=== PATIENT | female | born 1985 | race Caucasian/White ===

== ENCOUNTER 2016-09-14 10:35 | Outpatient (RCR) | payer MEDICAID | END 2016-09-22 | disposition home or self-care (01) | LOC: M OUTALCOH 10:35 | PROVIDERS: ATTEND Psychiatry & Neurology Psychiatry | DX: F12.20 Cannabis dependence, uncomplicated (principal) ==

== ENCOUNTER 2016-10-12 11:17 | Outpatient (RCR) | payer MEDICAID | END 2016-10-20 | LOC: M OUTALCOH 11:17 | PROVIDERS: ATTEND Psychiatry & Neurology Psychiatry | DX: F12.20 Cannabis dependence, uncomplicated (principal) ==

== ENCOUNTER → 2016-12-03 | Outpatient (REF) | payer OTHER ==
[2016-12-03 13:28] LABS: BASO # 0.1 K/mm3 (0.0-0.2); BASO % 0.6 % (0.0-1.0); EOS # 0.1 K/mm3 (0.0-0.50); EOS % 0.8 % (0.0-3.0); LARGE UNSTAINED CELL # 0.1 K/mm3 (0.0-0.4); LARGE UNSTAINED CELL % 1.2 % (0.0-4.0); LYMPH % 26.6 % (24.0-44.0); MEAN CORPUSCULAR HGB CONC 32.2 g/dl (32.0-36.5); MEAN CORPUSCULAR VOLUME 86.9 fl (80.0-96.0); MONO # 0.5 K/mm3 (0.0-0.8); MONO % 4.8 % (0.0-5.0); PLATELET COUNT, AUTOMATED 335 k/mm3 (150-450); RED CELL DISTRIBUTION WIDTH 12.7 % (11.5-14.5); WHITE BLOOD COUNT 10.7 K/mm3 (4.0-10.0)
[2016-12-03 13:51] LABS: ALBUMIN 4.1 GM/DL (3.2-5.2); ALBUMIN/GLOBULIN RATIO 1.11 (1.00-1.93); ALKALINE PHOSPHATASE 102 U/L (45-117); ALT/SGPT 40 U/L (12-78); ANION GAP 9 MEQ/L (8-16); AST/SGOT 23 U/L (15-37); BILIRUBIN,TOTAL 0.2 MG/DL (0.2-1.0); BLOOD UREA NITROGEN 7 MG/DL (7-18); CALCIUM LEVEL 9.2 MG/DL (8.5-10.1); CARBON DIOXIDE LEVEL 28 MEQ/L (21-32); CHLORIDE LEVEL 103 MEQ/L (98-107); CHOLESTEROL LEVEL 206 MG/DL (<200); CREATININE FOR GFR 0.71 MG/DL (0.55-1.02); GLOMERULAR FILTRATION RATE > 60.0 (>60); GLUCOSE, FASTING 72 MG/DL (70-105); SODIUM LEVEL 140 MEQ/L (136-145); TOTAL PROTEIN 7.8 GM/DL (6.4-8.2); TRIGLYCERIDES LEVEL 243 MG/DL (<150)
== END ==
LOC: M SFHCPLAZ 11:37
PROVIDERS: ATTEND Nurse Practitioner Family
DX: Z00.00 Encounter for general adult medical examination without abnormal findings (principal); Z13.220 Encounter for screening for lipoid disorders

== ENCOUNTER → 2017-01-20 | Outpatient (REF) | payer OTHER | LOC: M SFHCWAGY 10:57 | PROVIDERS: ATTEND Nurse Practitioner Family | DX: Z01.419 Encounter for gynecological examination (general) (routine) without abnormal findings (principal) ==

== ENCOUNTER → 2017-12-21 | Outpatient (REF) | LOC: M SMT 12:20 | DX: Z02.9 Encounter for administrative examinations, unspecified (principal) ==

== ENCOUNTER → 2017-12-27 | Outpatient (REF) | payer OTHER ==
[2017-12-27 16:34] LABS: ALBUMIN 4.3 GM/DL (3.2-5.2); ALBUMIN/GLOBULIN RATIO 1.13 (1.00-1.93); ALKALINE PHOSPHATASE 82 U/L (45-117); ALT/SGPT 26 U/L (12-78); ANION GAP 7 MEQ/L (8-16); AST/SGOT 21 U/L (7-37); BILIRUBIN,TOTAL 0.4 MG/DL (0.2-1.0); BLOOD UREA NITROGEN 6 MG/DL (7-18); CALCIUM LEVEL 9.5 MG/DL (8.5-10.1); CARBON DIOXIDE LEVEL 26 MEQ/L (21-32); CHLORIDE LEVEL 109 MEQ/L (98-107); CHOLESTEROL LEVEL 198 MG/DL (<200); CHOLESTEROL RISK RATIO 3.735 (<5); CREATININE FOR GFR 0.82 MG/DL (0.55-1.30); GLOMERULAR FILTRATION RATE > 60.0 (>60); GLUCOSE, FASTING 72 MG/DL (70-100); HDL CHOLESTEROL 53 MG/DL (>40); LDL CHOLESTEROL 132.4 MG/DL (<100); NON-HDL-C 145 MG/DL; POTASSIUM SERUM 3.5 MEQ/L (3.5-5.1); SODIUM LEVEL 142 MEQ/L (136-145); TOTAL PROTEIN 8.1 GM/DL (6.4-8.2); TRIGLYCERIDES LEVEL 63 MG/DL (<150)
== END ==
LOC: M SFHCPLAZ 13:31
DX: Z00.00 Encounter for general adult medical examination without abnormal findings (principal); Z13.220 Encounter for screening for lipoid disorders

== ENCOUNTER → 2018-04-08 | Outpatient (CLI) | payer MEDICAID | LOC: M OUTALCOH 07:42 | DX: Z03.89 Encounter for observation for other suspected diseases and conditions ruled out (principal) ==

== ENCOUNTER 2018-05-05 15:37 | Outpatient (RCR) | payer MEDICAID | END 2018-05-22 | LOC: M OUTALCOH 05-16 16:00 | DX: F12.20 Cannabis dependence, uncomplicated (principal) ==

== ENCOUNTER 2018-05-30 14:39 | Outpatient (RCR) | payer MEDICAID | END 2018-06-22 | LOC: M OUTALCOH 06-06 15:30 | DX: F12.20 Cannabis dependence, uncomplicated (principal); F17.200 Nicotine dependence, unspecified, uncomplicated ==

== ENCOUNTER 2018-07-05 08:09 | Outpatient (RCR) | payer MEDICAID | END 2018-07-22 | LOC: M OUTALCOH 08:09 | DX: F12.20 Cannabis dependence, uncomplicated (principal); F17.200 Nicotine dependence, unspecified, uncomplicated ==

== ENCOUNTER 2018-08-17 13:29 | Outpatient (RCR) | payer MEDICAID | END 2018-08-22 | LOC: M OUTALCOH 13:29 | PROVIDERS: ATTEND Psychiatry & Neurology Psychiatry | DX: F12.20 Cannabis dependence, uncomplicated (principal); F17.200 Nicotine dependence, unspecified, uncomplicated ==

== ENCOUNTER 2018-09-19 16:00 | Outpatient (RCR) | payer MEDICAID | END 2018-09-22 | LOC: M OUTALCOH 16:00 | PROVIDERS: ATTEND Psychiatry & Neurology Psychiatry | DX: F12.10 Cannabis abuse, uncomplicated (principal); F17.200 Nicotine dependence, unspecified, uncomplicated ==

== ENCOUNTER 2018-10-03 13:38 | Outpatient (RCR) | payer MEDICAID | END 2018-10-20 | LOC: M OUTALCOH 13:38 | PROVIDERS: ATTEND Psychiatry & Neurology Psychiatry | DX: F12.10 Cannabis abuse, uncomplicated (principal); F17.200 Nicotine dependence, unspecified, uncomplicated ==

== ENCOUNTER → 2018-12-30 | Outpatient (REF) | payer OTHER ==
[2018-12-30 13:05] LABS: ALBUMIN 3.8 GM/DL (3.2-5.2); ALT/SGPT 32 U/L (12-78); BILIRUBIN,TOTAL 0.3 MG/DL (0.2-1.0); BLOOD UREA NITROGEN 9 MG/DL (7-18); CALCIUM LEVEL 9.4 MG/DL (8.5-10.1); CARBON DIOXIDE LEVEL 28 MEQ/L (21-32); CHLORIDE LEVEL 107 MEQ/L (98-107); CHOLESTEROL LEVEL 164 MG/DL (<200); CHOLESTEROL RISK RATIO 2.981 (<5); CREATININE FOR GFR 0.71 MG/DL (0.55-1.30); GLOMERULAR FILTRATION RATE > 60.0 (>60); GLUCOSE, FASTING 84 MG/DL (70-100); HDL CHOLESTEROL 55 MG/DL (>40); LDL CHOLESTEROL 92 MG/DL (<100); NON-HDL-C 109 MG/DL; POTASSIUM SERUM 4.3 MEQ/L (3.5-5.1); SODIUM LEVEL 140 MEQ/L (136-145); TOTAL PROTEIN 7.5 GM/DL (6.4-8.2); TRIGLYCERIDES LEVEL 83 MG/DL (<150)
== END ==
LOC: M SFHCPLAZ 09:27
PROVIDERS: ATTEND Nurse Practitioner Family
DX: Z00.00 Encounter for general adult medical examination without abnormal findings (principal); Z13.220 Encounter for screening for lipoid disorders; Z68.30 Body mass index [BMI] 30.0-30.9, adult

== ENCOUNTER 2019-05-10 23:49 | Inpatient (IN) | payer MEDICAID, OTHER ==
[~2019-05-10] VITALS: Ht 152.4 cm; Wt 60.1 kg
[2019-05-11] MEDS ORDERED: LORazepam 2 MG/ML VIAL (J2060) As Ordered ONE ×2 (00:09→11:42)
[2019-05-11] MEDS ORDERED: diphenhydrAMINE INJ 50MG/ML VIAL (J1200) As Ordered ONE (00:09)
[2019-05-11] MEDS ORDERED: HALOPERIDOL 5 MG/ML VIAL (J1630) IM ONE (00:15)
[2019-05-11] MEDS ORDERED: diphenhydrAMINE INJ 50MG/ML VIAL (J1200) IM ONE (00:15)
[2019-05-11 00:53] LABS: HEMATOCRIT 41.5 % (36.0-47.0); HEMOGLOBIN 13.3 g/dl (12.0-15.5); MEAN CORPUSCULAR HEMOGLOBIN 27.2 pg (27.0-33.0); MEAN CORPUSCULAR VOLUME 84.9 fl (80.0-96.0); PLATELET COUNT, AUTOMATED 332 10^3/uL (150-450); RED BLOOD COUNT 4.89 10^6/uL (4.00-5.40); WHITE BLOOD COUNT 9.7 10^3/uL (4.0-10.0)
[2019-05-11 01:25] LABS: HCG, SERUM QUALITATIVE NEGATIVE (NEGATIVE)
[2019-05-11 01:36] LABS: ACETAMINOPHEN LEVEL < 2.0 UG/ML (10.0-30.0); ALBUMIN 4.1 GM/DL (3.2-5.2); ALT/SGPT 18 U/L (12-78); BILIRUBIN,DIRECT 0.1 MG/DL (0.0-0.2); BILIRUBIN,TOTAL 0.3 MG/DL (0.2-1.0); BLOOD UREA NITROGEN 8 MG/DL (7-18); CALCIUM LEVEL 9.3 MG/DL (8.5-10.1); CARBON DIOXIDE LEVEL 24 MEQ/L (21-32); CHLORIDE LEVEL 106 MEQ/L (98-107); ETHYL ALCOHOL (ETHANOL) < 0.003 % (0.000-0.010); GLOMERULAR FILTRATION RATE > 60.0 (>60); GLUCOSE, FASTING 90 MG/DL (70-100); POTASSIUM SERUM 3.2 MEQ/L (3.5-5.1); SALICYLATE LEVEL 4.9 MG/DL (5.0-30.0); SODIUM LEVEL 140 MEQ/L (136-145); TOTAL PROTEIN 7.3 GM/DL (6.4-8.2)
[2019-05-11 10:56] LABS: AMPHETAMINES LEVEL URINE POSITIVE (NEGATIVE); BARBITURATES URINE NEGATIVE (NEGATIVE); BENZODIAZEPINES URINE NEGATIVE (NEGATIVE); CANNABINOIDS URINE POSITIVE (NEGATIVE); COCAINE METABOLITE URINE NEGATIVE (NEGATIVE); METHADONE URINE NEGATIVE (NEGATIVE); OPIATES URINE NEGATIVE (NEGATIVE); PHENCYCLIDINE URINE NEGATIVE (NEGATIVE)
[2019-05-11] MEDS ORDERED: diphenhydrAMINE INJ 50MG/ML VIAL (J1200) IM STA (11:41)
[2019-05-11] MEDS ORDERED: LORazepam 2 MG/ML VIAL (J2060) IM STA (11:41)
[2019-05-11] MEDS ORDERED: HALOPERIDOL 5 MG/ML VIAL (J1630) IM STA ×2 (11:41→14:00)
[2019-05-11] MEDS ORDERED: BENZ-52 PO (11:59)
[2019-05-11] MEDS ORDERED: PATIENT COMMENT (11:59)
[2019-05-11] MEDS ORDERED: BUPR15TA PO (11:59)
[2019-05-11] MEDS ORDERED: ABIL1INJ2 IM (11:59)
[2019-05-11] MEDS ORDERED: HALOPERIDOL 10 MG TAB PO PRN (16:00)
[2019-05-11] MEDS ORDERED: MOM 30ML SUSPENSION UDC PO PRN (16:00)
[2019-05-11] MEDS ORDERED: ACETAMINOPHEN TAB 650MG DOSE (2X325MG) PO PRN (16:00)
[2019-05-11] MEDS ORDERED: traZODone 50 MG TAB PO PRN (16:00)
[2019-05-11] MEDS ORDERED: MAALOX 30 ML SUSP *UDC PO PRN (16:00)
[2019-05-12 06:04] VITALS: BP 118/62
[2019-05-12 09:13] LABS: HEPATITIS B SURFACE ANTIGEN NEGATIVE (NEGATIVE)
[2019-05-12] MEDS ORDERED: NICOTINE POLACRILEX 2 MG GUM PO PRN (09:15)
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
--- NOTE | 2019-05-12 13:53 | HPEPDOC ---
[facility] [place] Medical History & Physical Date of Admission May 12, 2019 Date of Service: May 12, 2019 History and Physical CHIEF COMPLAINT: "I had a mental breakdown" HISTORY OF PRESENT ILLNESS: Patient is a 34-year-old female with reported psychiatric history of bipolar, PTSD, antisocial disorder, schizophrenia stated that she had a mental breakdown and seeing things that other people didn't see. Denies any medical complaints or history. She has been agitated and is still agitated during history. She also denies any physial complaints including pain, discomfort, SOB. Wants to know when she can leave the hospital and refused to answer further questions. PAST MEDICAL HISTORY: Refer to [facility] PAST SURGICAL HISTORY: L. pinky finger surgery SOCIAL HISTORY: Smoke 10cigs/day, smokes marijuana. Denies alcohol use. FAMILY HISTORY: Father alcoholic ALLERGIES: Please see below. REVIEW OF SYSTEMS: 10 point review of system negative except as stated in HPI HOME MEDICATIONS: Please see below. PHYSICAL EXAMINATION: General: No acute distress, Alert, angry/agitated Neuro: CN appeared grossly intact. Moving all extremities. Unable to obtain full exam, patient refused. LABORATORY DATA: See below. MICROBIOLOGY: Please see below. ASSESSMENT AND PLAN: 1. Bipolar/Schizophrenia - Evaluation and treatment per psych. - Patient has no physical complaints. No evidence of infection or gross anomaly noted in CBC/BMP apart from hypokalemia. 2. Hypokalemia - Supplement with 40 PO K. Will sign off at this time given no medical problems that need to be addressed. Please call for re-evaluation if needed. Thank you. Vital Signs Vital Signs Date Time Temp Pulse Resp B/P (MAP) Pulse Ox O2 Delivery O2 Flow Rate FiO2 05/12/19 06:04 98.1 94 16 118/62 (80) 05/11/19 17:48 100 Room Air Home Medications Scheduled Aripiprazole (Abilify Maintena) 400 Mg Suser.syr, 400 MG IM QMONTH LAST FILLED 04/07/19 Benztropine Mesylate (Benztropine Mesylate) 1 Mg Tablet, 1 MG PO BID Bupropion HCl (Wellbutrin Sr) 150 Mg Tab.sr.12h, 150 MG PO BID Miscellaneous Medications [Patient Comment] UNABLE TO VERIFY MEDICATION WITH PATIENT - MED LIST OBTAINED FROM LAST CLINIC VISIT ON 03/20/19 Allergies Coded Allergies: No Known Allergies (Unverified , 05/11/19) A-FIB/CHADSVASC A-FIB History Current/History of A-Fib/PAF?: No BONG LONDONO MD May 12, 2019 13:53
[2019-05-12] MEDS ORDERED: POTASSIUM CHLORIDE 10 MEQ SR TABLET PO ONE (14:00)
[2019-05-13 06:35] VITALS: BP 121/82
[2019-05-13] MEDS ORDERED: LORazepam 2 MG/ML VIAL (J2060) IM STA (11:45)
[2019-05-13] MEDS ORDERED: HALOPERIDOL 5 MG/ML VIAL (J1630) IM STA (11:45)
[2019-05-13 16:22] VITALS: BP 146/73
[2019-05-14 06:47] VITALS: BP 103/59
--- NOTE | 2019-05-14 07:36 | MHIPN ---
DATE: 05/13/2019 I was called a few minutes ago as the patient was quite agitated, screaming, threatening others, including staff, and was not able to be directed. A code was called, and she needed to be placed in restraints. I saw her when she was in restraints. She had been given Haldol 5 mg intramuscular as well as Ativan intramuscular, is in four-point restraints, agitated and angry, indicating that she had been called a liar, said the staff had done that, but she was coherent. Staff, that is looking after her, , has suggested the patient has been shouting and screaming even on her own, in her room, and is responding to internal stimuli, and had not been directed. She will remain in restraints per protocol, and the restraints will removed as soon as possible the opportunity per protocol, and she will be monitored.
--- NOTE | 2019-05-14 09:36 | MHIPN ---
DATE: 05/13/2019 She was seen later, calmer, but still in restraints, in fact three-point restraints, and these were removed soon afterwards as she was calmer, coherent, subtly agitated. No overt evidence of psychosis at that point. Judgment and insight remain compromised. Continue current care and observation.
[2019-05-14] MEDS ORDERED: HALOPERIDOL 5 MG/ML VIAL (J1630) IM STA (09:41)
[2019-05-14] MEDS ORDERED: LORazepam 2 MG/ML VIAL (J2060) IM STA (09:41)
[2019-05-14 10:00] VITALS: BP 103/59
[2019-05-14 16:06] VITALS: BP 136/72
--- NOTE | 2019-05-14 18:18 | MHIPN ---
DATE: 05/14/2019 I was called a few minutes ago, as the patient is quite agitated, not directable. The staff attempted to direct her without success, was offered oral medication, which she declined. Matters escalated and she was agitated and needed to be restrained. She was placed in 4-point restraints and I saw her soon afterwards. She has just been given Haldol 5 mg intramuscular, as well as Ativan intramuscular and was lying relatively comfortably and then became quite agitated when she saw me, started shouting, attempted getting out. Was quite coherent, but agitated. Will continue with current monitoring and will remove restraints as soon as is feasible per protocol. Given the course of events yesterday and now, may need to consider restricting her from the use of the telephone until further notice.
[2019-05-15 06:24] VITALS: BP 116/60
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
[2019-05-15] MEDS ORDERED: ARIPiprazole MONOHYDRATE 400 MG INJ (ABILIFY)(J0401) IM ONE (13:00)
[2019-05-15 15:34] VITALS: BP 129/86
[2019-05-16 06:20] VITALS: BP 132/81
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
[2019-05-16] MEDS ORDERED: ABIL1TAB11 PO (10:14)
[2019-05-16] MEDS ORDERED: NICO2GUM PO (10:14)
== END 2019-05-16 10:50 | disposition home or self-care (01) | DRG 755 ==
LOC: M ED 23:49 → M ED INP 05-11 15:53 → M PSY 05-11 18:53
PROVIDERS: ADMIT Psychiatry & Neurology Addiction Medicine; ATTEND Psychiatry & Neurology Addiction Medicine
DX: F43.10 Post-traumatic stress disorder, unspecified (principal); F31.9 Bipolar disorder, unspecified; F60.2 Antisocial personality disorder; F15.90 Other stimulant use, unspecified, uncomplicated; Z79.899 Other long term (current) drug therapy; F17.210 Nicotine dependence, cigarettes, uncomplicated; F12.90 Cannabis use, unspecified, uncomplicated

== ENCOUNTER 2019-12-13 09:38 | Inpatient (IN) | payer MEDICAID, OTHER ==
[~2019-12-13] VITALS: Ht 149.9 cm; Wt 59.8 kg
[~2019-12-13 09:38] MED LIST: ABIL1INJ2 IM; ABIL1TAB11 PO; BENZ-52 PO; BUPR15TA PO; NICO2GUM PO; PATIENT COMMENT
[2019-12-13] MEDS ORDERED: LORazepam 2 MG/ML VIAL (J2060) IM ONE (09:45)
[2019-12-13] MEDS ORDERED: diphenhydrAMINE 50MG/ML VIAL (J1200) IM ONE (09:45)
[2019-12-13] MEDS ORDERED: HALOPERIDOL 5MG/ML VIAL (J1630 PER 1) IM ONE (09:45)
[2019-12-13] MEDS ORDERED: LORazepam 2 MG/ML VIAL (J2060) IM STA ×2 (11:03→13:27)
[2019-12-13 12:27] LABS: HEMATOCRIT 28.9 % (36.0-47.0); MEAN CORPUSCULAR HEMOGLOBIN 23.9 pg (27.0-33.0); MEAN CORPUSCULAR HGB CONC 31.1 g/dl (32.0-36.5); MEAN CORPUSCULAR VOLUME 76.9 fl (80.0-96.0); PLATELET COUNT, AUTOMATED 389 10^3/uL (150-450); RED BLOOD COUNT 3.76 10^6/uL (4.00-5.40); WHITE BLOOD COUNT 11.4 10^3/uL (4.0-10.0)
[2019-12-13 13:06] LABS: HCG, SERUM QUALITATIVE NEGATIVE (NEGATIVE)
[2019-12-13 13:15] LABS: ACETAMINOPHEN LEVEL < 2.0 UG/ML (10.0-30.0); ALBUMIN 3.5 GM/DL (3.2-5.2); ALT/SGPT 19 U/L (12-78); BILIRUBIN,DIRECT < 0.1 MG/DL (0.0-0.2); BILIRUBIN,TOTAL 0.3 MG/DL (0.2-1.0); BLOOD UREA NITROGEN 9 MG/DL (7-18); CALCIUM LEVEL 8.8 MG/DL (8.5-10.1); CARBON DIOXIDE LEVEL 26 MEQ/L (21-32); CHLORIDE LEVEL 108 MEQ/L (98-107); CREATININE FOR GFR 0.69 MG/DL (0.55-1.30); ETHYL ALCOHOL (ETHANOL) 0.006 % (0.000-0.010); GLOMERULAR FILTRATION RATE > 60.0 (>60); GLUCOSE, FASTING 78 MG/DL (70-100); POTASSIUM SERUM 3.9 MEQ/L (3.5-5.1); SALICYLATE LEVEL 2.4 MG/DL (5.0-30.0); SODIUM LEVEL 140 MEQ/L (136-145); TOTAL PROTEIN 6.6 GM/DL (6.4-8.2)
[2019-12-13 13:46] LABS: FERRITIN 6 NG/ML (8-252); IRON (FE) 23 UG/DL (50-170); PERCENT SATURATION 6.1 % (13.2-45.0); TOTAL IRON BINDING CAPACITY 378 UG/DL (250-450)
[2019-12-13 13:52] LABS: VITAMIN B12 LEVEL 284 PG/ML (247-911)
[2019-12-13 13:53] LABS: FOLATE 11.4 NG/ML (>5.4)
[2019-12-13 15:18] LABS: AMPHETAMINES LEVEL URINE POSITIVE (NEGATIVE); BARBITURATES URINE NEGATIVE (NEGATIVE); BENZODIAZEPINES URINE NEGATIVE (NEGATIVE); CANNABINOIDS URINE POSITIVE (NEGATIVE); COCAINE METABOLITE URINE NEGATIVE (NEGATIVE); METHADONE URINE NEGATIVE (NEGATIVE); OPIATES URINE NEGATIVE (NEGATIVE); PHENCYCLIDINE URINE NEGATIVE (NEGATIVE)
[2019-12-13] MEDS ORDERED: MOM 30ML SUSPENSION UDC PO PRN (18:30)
[2019-12-13] MEDS ORDERED: traZODone 50 MG TAB PO PRN (18:30)
[2019-12-13] MEDS ORDERED: haloperidoL 5 MG TAB PO PRN (18:30)
[2019-12-13] MEDS ORDERED: ACETAMINOPHEN TAB 650MG DOSE (2X325MG) PO PRN (18:30)
[2019-12-13] MEDS ORDERED: MAALOX 30 ML SUSP *UDC PO PRN (18:30)
[2019-12-13] MEDS ORDERED: haloperidoL 5 MG TAB PO SCH (21:00)
--- NOTE | 2019-12-14 09:07 | MHHPEPDOC ---
[facility] History & Physical History and Physical DATE OF ADMISSION: Dec 13, 2019 at 18:17 New Patient Charlotte Santana MRN: N/A Date of : N/A Date of Service: 12/14/2019 Chief Complaint "Everyone says I'm delusional." History of Present Illness The patient, a 34-year-old woman presents after using methamphetamine and becoming mildly delusional and paranoid, she was brought in and admitted out of an abundance of caution. She has previous admissions in similar presentations. She reports that she had previously been on Abilify, but had been out of treatment that appears for several weeks to several months. The patient is met with. She was still quite irritable and difficult to redirect, fixated on a specific delusion about people on her gamboa, wholly unable to engage in a meaningful interview. The patient was restarted on Abilify as this had been helpful, however, her irritation and paranoia made it difficult to have an effective interview. Information below was taken from previous psychosocial and updated as appropriate. Review Of Systems Unable to obtain due to patient's mental status. Past Psychiatric History The patient has multiple previous inpatient admissions, last in May 2020. She had previously been seen [facility] outpatient behavioral health with Dr. Alas. She has been previously on Abilify Mo injectable 400 mg every month. Notable history of suicide attempts. Diagnoses of substance induced psychosis PTSD and antisocial. Reportedly has not been following up with outpatient therapy and medication. Allergies Please see below. Family Psychiatric History Patient has not eluded to any specific family history. Social History The patient reportedly lives in the local area. Has been incarcerated in the past due to the reported stabbing. It's unclear if she's , has any children, is currently employed at this time. Substance Abuse History Extensive substance abuse history primarily methamphetamine and cannabinoids, has presented multiple times needing addiction treatment and rehab. Additionally, uses tobacco frequently. Medical History No significant medical history. Mental Status Examination General: Well dressed with good hygiene Speech: Spontaneous and fluid Thought processes: Linear and logical MSK: Smooth and coordinated gait, no signs of tremors or involuntary orofacial movements Thought content: Paranoia. Abstract reasoning, and computation: Intact Description of associations: Mildly impaired. Description of abnormal or psychotic thoughts: Paranoia. Judgment: Impaired. Insight: Impaired. Orientation: Alert and orientated 3 Cognition: Grossly normal Recent and remote memory: Intact Attention span and concentration: Intact Fund of knowledge: Adequate Mood: "okay" Affect: Irritable Diagnoses Unspecified psychotic disorder. Methamphetamine use disorder, severe. PTSD, chronic. Antisocial personality disorder. Tobacco use disorder, moderate. Assessment and Plan Unspecified psychotic disorder: Start Abilify 5 mg nightly. Methamphetamine use disorder: Monitor for withdrawals. PTSD/anti social: Monitor closely with behavioral concerns for aggression. Disposition Patient will be retained further overnight and tomorrow, a determination will be made as to whether she will need an extension on her involuntary. She does resolve quite quickly and returns to her baseline level of risk. Once safe sufficient discharge plan is made, she will be eligible for discharge Problem List 1. Altered thoughts. Initial Treatment Plan 1. Patient was admitted on a 40 legal status. 2. Complete history was obtained. 3. With patients permission, family will be contacted and database will be expanded. 4. Patients medication regimen will be reviewed and changed accordingly. 5. Patient will be provided with protected environment. 6. Patient will be treated with individual, group, and milieu therapies. 7. Patient will receive supportive psych-education. 8. Discharge planning will commence immediately. 9. Outpatient follow-up treatment will be strongly recommended. 10. The initial treatment plan will focus initially on: Estimated Length Of Stay 3 days. Time Spent 70 minutes with greater than 50% of time spent on counseling/coordination of care. Vital Signs Vital Signs Date Time Temp Pulse Resp B/P (MAP) Pulse Ox O2 Delivery O2 Flow Rate FiO2 12/13/19 19:42 97.9 82 18 115/69 (84) 98 Room Air Laboratory Data 24H Labs Laboratory Tests 2 12/13/19 12:17: Nucleated Red Blood Cells % (auto) 0.0, Anion Gap 6L, Glomerular Filtration Rate > 60.0, Calcium Level 8.8, Iron Level 23L, Total Iron Binding Capacity 378, Transferrin % Saturation 6.1L, Ferritin 6L, Total Bilirubin 0.3, Direct Bilirubin < 0.1, Aspartate Amino Transf (AST/SGOT) 22, Alanine Aminotransferase (ALT/SGPT) 19, Alkaline Phosphatase 68, Total Protein 6.6, Albumin 3.5, Albumin/Globulin Ratio 1.13, Vitamin B12 Level 284, Folate 11.4, Thyroid Stimulating Hormone (TSH) 2.670, Human Chorionic Gonadotropin, Qual NEGATIVE, Salicylates Level 2.4L, Acetaminophen Level < 2.0L, Ethyl Alcohol Level 0.006 12/13/19 14:35: Urine Opiates Screen NEGATIVE, Urine Methadone Screen NEGATIVE, Urine Mckayla turates Screen NEGATIVE, Urine Phencyclidine Screen NEGATIVE, Urine Amphetamines Screen POSITIVEH, Urine Benzodiazepines Screen NEGATIVE, Urine Cocaine Metabolite Screen NEGATIVE, Urine Cannabinoids Screen POSITIVEH CBC/BMP Laboratory Tests 12/13/19 12:17 Medications Scheduled Aripiprazole (Abilify Maintena) 400 Mg Suser.syr, 400 MG IM QMONTH, (Reported) LAST FILLED 04/07/19 Aripiprazole (Abilify) 5 Mg Tablet, 5 MG PO QHS for mood Benztropine Mesylate (Benztropine Mesylate) 1 Mg Tablet, 1 MG PO BID, (Reported) Bupropion HCl (Wellbutrin Sr) 150 Mg Tab.sr.12h, 150 MG PO BID, (Reported) Scheduled PRN Nicotine Polacrilex (Nicotine Gum) 2 Mg Gum, 2 MG PO Q2HP PRN for NICOTINE WITHDRAWAL Miscellaneous Medications [Patient Comment] , (Reported) UNABLE TO VERIFY MEDICATION WITH PATIENT - MED LIST OBTAINED FROM LAST CLINIC VISIT ON 03/20/19 Allergies Coded Allergies: No Known Allergies (Unverified , 05/11/19) CONSUELO MENDEZ DO Dec 14, 2019 09:07
--- NOTE | 2019-12-14 15:11 | HPEPDOC ---
[facility] Medical History & Physical Date of Admission Dec 14, 2019 Date of Service: Dec 14, 2019 Attending Physician: Tracey Stevens MD History and Physical HISTORY OF PRESENT ILLNESS: The patient is a 34-year-old female with a history of bipolar disorder, drug abuse, noncompliance with medications, paranoia, psychosis, sleep disturbance who arrived to [facility] emergency room the morning of 12/13/2019 with increased paranoid ideations and irritability, delusions and psychosis. I was asked to see the patient is a medical consult; however, the patient was not a good participant with my evaluation and the information gathered on my end was limited. From notes, the patient was complaining of people in her "gamboa who are spying on her". She also thought that people were watching her through her television, radio, other electronic devices. She was tested in the emergency room and found to be positive for amphetamines and marijuana. She was also found to have marijuana in position in the ER along with powder and a small plastic envelope confirmed by her to be methamphetamines. She has had increased aggression/agitation, anger, delusions, drug use, hallucinations, labile mood, noncompliance, paranoia, poor concentration, psychosis, poor sleep according to notes over the last 2 weeks. Apparently this patient's father in the [place] last fall and since then she has decompensated according to ER notes. She was admitted to mental health unit in 04/2019 with similar symptoms of psychosis, anger. In the ER at this visit she was so agitated she required chemical and physical restraints. Today during my evaluation the patient's appeared to be very tired and did not want to participate with most of the evaluation. She refused a brief physical exam. She also refused to discuss menstrual cycles when discussing low iron levels, anemia. She denies the symptoms listed below. REVIEW OF SYSTEMS: CONSTITUTIONAL: Denies lack of energy, unexplained weight gain or weight loss, loss of appetite, fever, night sweats EYES: Denies eye drainage, eye pain, visual changes, dry/irritated eye EARS, NOSE, MOUTH, THROAT: Denies difficulty hearing, ringing in ears, mouth sores, loose teeth, sore throat, facial numbness or pain NECK: Denies swollen glands CARDIOVASCULAR: Denies irregular heartbeat, racing heart, chest pains, swelling of feet or legs, pain in legs with walking RESPIRATORY: Denies shortness of breath, night sweats, wheezing, sputum production, oxygen at home, coughing up blood, cough lasting > 1 month GASTROINTESTINAL: Denies abdominal pain, constipation, bloody stool, diarrhea, heartburn, nausea, vomiting GENITOURINARY: Denies painful urination, bloody urine, frequent urination, urgency, leaking urine, impotence MUSCULOSKELETAL: Denies joint pain, muscle pain, leg swelling INTEGUMENTARY: Denies rash, itching, new skin lesion, change in existing skin lesion, hair loss or increase, breast changes. NEUROLOGICAL: Denies headaches, dizziness, difficulty walking, numbness or tingling PSYCHIATRIC: Denies suicidal ideation, Homicidal ideation PAST MEDICAL HISTORY: 1. bipolar disorder 2. Drug abuse 3. Non-compliance with medications 4. Paranoia 5. Psychosis 6. Sleep disturbance PAST SURGICAL HISTORY: 1. Left fifth digit surgery FAMILY HISTORY: Father: Suicide versus murder, at 52 years old Mother: No medical history, alive SOCIAL HISTORY: Smoker for 20 years, less than 1 pack per day of cigarettes. She states to vape sometimes. Uses marijuana, methamphetamines recreationally. Denies alcohol use. Lives in the local area. She is a full code. She cannot recall having a primary care provider and did not respond to questions of behavior health specialists. ALLERGIES: Please see below. HOME MEDICATIONS: Please see below. PHYSICAL EXAMINATION: CONSTITUTIONAL: Tired, nonengaging at times. No acute distress, AAO x 3 Exam not performed due to patient's refusal LABORATORY DATA: Please see below IMAGING: None ASSESSMENT: 34 y/o F admitted for unspecified psychotic disorder. PLAN: 1. Unspecified psychotic disorder. To be managed by primary team 2. Bipolar disorder. To be managed by primary team 3. Iron deficiency anemia. Very low iron with H&H 05/20. No prior H/H in the system to trend. She did not answer questions about heavy menstrual cycles or history of bleeding. This patient requires iron supplementation twice a day, vitamin C and bowel regimen. She would also benefit from an IV iron infusion. There was no colon cancer history that was told to me on evaluation; however, if this is found to be the case then guaiac test may want to be done. Will leave up to the primary team to discuss with the patient, attending made aware. 4. Drug abuse. Marijuana and methamphetamines + on UDS. Still groggy likely from chemical and physical restraints. To be addressed by primary team when more awake and alert. 5. Insomnia. C/w current treatment. DISPOSITION: Case discussed with admitting attending. At this time there is not much to follow on her so will sign off. If needing reevaluation, please feel free to let us know. Vital Signs Vital Signs Date Time Temp Pulse Resp B/P (MAP) Pulse Ox O2 Delivery O2 Flow Rate FiO2 12/14/19 11:16 Room Air 12/13/19 19:42 97.9 82 18 115/69 (84) 98 Home Medications Scheduled Aripiprazole (Abilify Maintena) 400 Mg Suser.syr, 400 MG IM QMONTH LAST FILLED 04/07/19 Aripiprazole (Abilify) 5 Mg Tablet, 5 MG PO QHS for mood Benztropine Mesylate (Benztropine Mesylate) 1 Mg Tablet, 1 MG PO BID Bupropion HCl (Wellbutrin Sr) 150 Mg Tab.sr.12h, 150 MG PO BID Scheduled PRN Nicotine Polacrilex (Nicotine Gum) 2 Mg Gum, 2 MG PO Q2HP PRN for NICOTINE WITHDRAWAL Miscellaneous Medications [Patient Comment] UNABLE TO VERIFY MEDICATION WITH PATIENT - MED LIST OBTAINED FROM LAST CLINIC VISIT ON 03/20/19 Allergies Coded Allergies: No Known Allergies (Unverified , 05/11/19) A-FIB/CHADSVASC A-FIB History Current/History of A-Fib/PAF?: No Current PO Anticoag Therapy: No Age/Risk Factor Scoring CHADSVASC: CHADSVASC Response (Comments) Value Age Risk Factor Age < 65 years old 0 Gender Risk Factor Female 1 Hx of CHF No 0 Hx of HTN No 0 Hx of Stroke/TIA/or VTE No 0 Hx of Diabetes No 0 Hx of Vascular Disease No 0 Total 1 Treatment Treatment ordered: NONE (none) Tracey Stevens MD Dec 14, 2019 15:11
[2019-12-15 06:30] VITALS: BP 135/64
--- NOTE | 2019-12-15 09:25 | MHIPNPDOC ---
[facility] Progress Note Progress Note Inpatient Progress Note Charlotte Santana MRN: N/A Date of : N/A Date of Service: 12/15/2019 History of Present Illness The patient, a 34-year-old woman presents after using methamphetamine and becoming mildly delusional and paranoid, she was brought in and admitted out of an abundance of caution. She has previous admissions in similar presentations. She reports that she had previously been on Abilify, but had been out of treatment that appears for several weeks to several months. The patient is met with. She was still quite irritable and difficult to redirect, fixated on a specific delusion about people on her [place], wholly unable to engage in a meaningful interview. The patient was restarted on Abilify as this had been helpful, however, her irritation and paranoia made it difficult to have an effective interview. Information below was taken from previous psychosocial and updated as appropriate. Interval History The patient is met with today. She is doing much better, is much more euthymic and smiling. She has had no behavioral problems overnight, appears to be much less dilutional, does not endorse any significant delusions at this time. She is amenable to Abilify injection. She is interested in when she may be able to go home, nursing staff noticed improvement as well. She is not taking the oral Abilify as she prefers the injection Review Of Systems Denies any physical complaints at this time. Psychotherapy None on this visit. Vital Signs Reviewed. Mental Status Examination General: Well dressed with good hygiene Speech: Spontaneous and fluid Thought processes: Linear and logical MSK: Smooth and coordinated gait, no signs of tremors or involuntary orofacial movements Thought content: Future orientated Abstract reasoning, and computation: Intact Description of associations: Intact Description of abnormal or psychotic thoughts: Denies any suicidal or homicidal ideation. Denies any auditory or visual hallucinations. Does not appear to be re sponding to internal stimuli. Does not appear to be endorsing any bizarre or paranoid ideation. Judgment: fair Insight: fair Orientation: Alert and orientated 3 Cognition: Grossly normal Recent and remote memory: Intact Attention span and concentration: Intact Fund of knowledge: Adequate Mood: "okay" Affect: Euthymic with a full range Diagnoses Unspecified psychotic disorder. Methamphetamine use disorder, severe. PTSD, chronic. Antisocial personality disorder. Tobacco use disorder, moderate. Assessment and Plan Unspecified psychotic disorder: Give Abilify 400 mg IM every monthly, discontinue oral. Methamphetamine use disorder: Monitor for withdrawals. PTSD/anti social: Stable. Disposition We will monitor overnight after injection and then subsequent discharge, if patient remains stable. Time Spent 15 minutes. Wednesday Vital Signs Vital Signs Date Time Temp Pulse Resp B/P (MAP) Pulse Ox O2 Delivery O2 Flow Rate FiO2 12/15/19 06:30 98.5 91 14 135/64 (87) 98 Room Air Current Medications Current Medications Medications (Trade) Dose Ordered Sig/Dina Route PRN Reason Start Time Stop Time Status Last Admin Dose Admin Acetaminophen (Tylenol Tab) 650 mg Q6HP PRN PO HEADACHE or DISCOMFORT 12/13/19 18:30 Al Hydrox/Mg Hydrox/Simethicone (Mylanta) 30 ml Q4HP PRN PO HEARTBURN/INDIGESTION 12/13/19 18:30 Aripiprazole (AbiLIFY) 5 mg QHS PO 12/14/19 21:00 Haloperidol (Haldol) 5 mg Q6HP PRN PO ANXIETY/AGITATION 12/13/19 18:30 Haloperidol (Haldol) 5 mg QHS PO 12/13/19 21:00 12/14/19 10:48 DC Lorazepam (Ativan) 2 mg STAT STAT IM 12/13/19 11:03 12/13/19 11:04 DC 12/13/19 11:32 Lorazepam (Ativan) 2 mg STAT STAT IM 12/13/19 13:27 12/13/19 13:28 DC 12/13/19 13:37 Magnesium Hydroxide (Milk Of Magnesia) 30 ml DAILYPRN PRN PO CONSTIPATION 12/13/19 18:30 Trazodone HCl (Desyrel) 50 mg QHSP PRN PO INSOMNIA 12/13/19 18:30 Allergies Coded Allergies: No Known Allergies (Unverified , 05/11/19) CONSUELO MENDEZ DO Dec 15, 2019 09:25
[2019-12-15] MEDS ORDERED: ARIPiprazole MONOHYDRATE 400 MG INJ (ABILIFY) IM ONE (13:00)
[2019-12-15 16:00] VITALS: BP 137/92
[2019-12-15] MEDS ORDERED: ABIL1INJ2 IM (21:05)
[2019-12-16 06:03] VITALS: BP 136/83
--- NOTE | 2019-12-16 18:19 | MHDSPDOC ---
[facility] Discharge Summary Discharge Summary DATE OF ADMISSION: Dec 13, 2019 at 18:17 DATE OF DISCHARGE: Dec 16, 2019 at 08:50 Discharge Charlotte Santana MRN: N/A Date of : N/A Date of Service: 12/16/2019 Diagnoses Unspecified psychotic disorder. Methamphetamine use disorder, severe. PTSD, chronic. Antisocial personality disorder. Tobacco use disorder, moderate. History of Present Illness The patient, a 34-year-old woman presents after using methamphetamine and becom ing mildly delusional and paranoid, she was brought in and admitted out of an abundance of caution. She has previous admissions in similar presentations. She reports that she had previously been on Abilify, but had been out of treatment that appears for several weeks to several months. The patient is met with. She was still quite irritable and difficult to redirect, fixated on a specific delusion about people on her [place], wholly unable to engage in a meaningful interview. The patient was restarted on Abilify as this had been helpful, however, her irritation and paranoia made it difficult to have an effective interview. Information below was taken from previous psychosocial and updated as appropriate. Consultants Involved Hospitalist/PCP screening Treatment and Progress On The Unit The patient was brought into the inpatient mental health unit. She was initially extend on involuntary, she was still dilutional and fairly irritating. She required restrains in the ER. Eventually, she became more amenable and certainly clear up as would be expected in a substance induced psychosis. She refused oral Abilify and wanted the injection only and reported she tolerated better. She was observed overnight and subsequently arranged for discharge the next day in order to make sure she would tolerate her Abilify injection as she has not had it recently. The patient was observed and was released initially with the plan to have the safety companion psychiatrist put the MSE and to check on the patient before release, however, this was unfortunately not acknowledged in the discharge order. The patient had been denying any suicidal or homicidal radiation other than some irritability and delusional thinking that rapidly vanished after she had resolved after day 1. She had resolved fairly well. She post no other dangerous to herself or others. Discharge Assessment 34-year-old woman with likely substance induced psychosis and PTSD who presents after using methamphetamine. She does well and is given Abilify injection and set up with appropriate outpatient care, although the discharge mental status was not done as she was allowed to leave prior to that being completed as ac knowledged in the discharge order instructions. Given the chart information when she had left, it is highly unlikely that her mental status at the time was anything different than what her previous one was like what she was being arranged for discharge. It is unlikely it would have led to her being retained for any longer or meeting criteria to be done so. Mental Status Examination Please see previous mental status. Follow Up The social work team worked during the predischarge meeting in order to evaluate for further issues of lethality address them fully before discharge. They worked on safety planning with the patient's family members in order to ensure that the patient will have a safe and effective discharge. Time Spent The amount of time spent in the coordination of care for this patient was approximately 45 minutes. Wednesday Vital Signs/I&Os Vital Signs Date Time Temp Pulse Resp B/P (MAP) Pulse Ox O2 Delivery O2 Flow Rate FiO2 12/16/19 06:03 97.4 97 20 136/83 (100) 100 Room Air Medications Scheduled Aripiprazole (Abilify Maintena) 400 Mg Suser.syr, 400 MG IM QMONTH for thoughts for 30 Days, #1 LAST FILLED 04/07/19 Scheduled PRN Nicotine Polacrilex (Nicotine Gum) 2 Mg Gum, 2 MG PO Q2HP PRN for NICOTINE WITHDRAWAL for 30 Days, #2 Allergies Coded Allergies: No Known Allergies (Unverified , 05/11/19) CONSUELO MENDEZ DO Dec 16, 2019 18:19
== END 2019-12-16 08:50 | disposition home or self-care (01) | DRG 752 ==
LOC: M ED 09:38 → M ED INP 18:17 → M PSY 20:02
PROVIDERS: ADMIT Psychiatry & Neurology Addiction Medicine; ATTEND Psychiatry & Neurology Addiction Medicine
DX: F60.2 Antisocial personality disorder (principal); F17.200 Nicotine dependence, unspecified, uncomplicated; F43.10 Post-traumatic stress disorder, unspecified

== ENCOUNTER 2020-03-01 10:57 | Emergency (ER) | payer MEDICAID, OTHER ==
[2020-03-01 12:08] LABS: HEMATOCRIT 35.7 % (36.0-47.0); HEMOGLOBIN 10.6 g/dl (12.0-15.5); MEAN CORPUSCULAR HEMOGLOBIN 22.1 pg (27.0-33.0); MEAN CORPUSCULAR HGB CONC 29.7 g/dl (32.0-36.5); MEAN CORPUSCULAR VOLUME 74.5 fl (80.0-96.0); PLATELET COUNT, AUTOMATED 471 10^3/uL (150-450); RED BLOOD COUNT 4.79 10^6/uL (4.00-5.40); WHITE BLOOD COUNT 11.3 10^3/uL (4.0-10.0)
[2020-03-01 12:32] LABS: AMPHETAMINES LEVEL URINE POSITIVE (NEGATIVE); BARBITURATES URINE NEGATIVE (NEGATIVE); BENZODIAZEPINES URINE NEGATIVE (NEGATIVE); CANNABINOIDS URINE POSITIVE (NEGATIVE); COCAINE METABOLITE URINE NEGATIVE (NEGATIVE); METHADONE URINE NEGATIVE (NEGATIVE); OPIATES URINE NEGATIVE (NEGATIVE); PHENCYCLIDINE URINE NEGATIVE (NEGATIVE)
[2020-03-01 12:41] LABS: HCG, SERUM QUALITATIVE NEGATIVE (NEGATIVE)
[2020-03-01 12:50] LABS: ACETAMINOPHEN LEVEL < 2.0 UG/ML (10.0-30.0); ALBUMIN 4.5 GM/DL (3.2-5.2); ALT/SGPT 20 U/L (12-78); BILIRUBIN,DIRECT < 0.1 MG/DL (0.0-0.2); BILIRUBIN,TOTAL 0.3 MG/DL (0.2-1.0); BLOOD UREA NITROGEN 11 MG/DL (7-18); CALCIUM LEVEL 9.5 MG/DL (8.5-10.1); CARBON DIOXIDE LEVEL 23 MEQ/L (21-32); CHLORIDE LEVEL 106 MEQ/L (98-107); CREATININE FOR GFR 1.13 MG/DL (0.55-1.30); ETHYL ALCOHOL (ETHANOL) < 0.003 % (0.000-0.010); GLUCOSE, FASTING 110 MG/DL (70-100); POTASSIUM SERUM 3.6 MEQ/L (3.5-5.1); SODIUM LEVEL 138 MEQ/L (136-145); TOTAL PROTEIN 8.7 GM/DL (6.4-8.2)
[2020-03-01] MEDS ORDERED: OLANZapine ORAL DISINTEGRATING TAB 5MG PO ONE (15:30)
[2020-03-01 16:29] VITALS: BP 129/74
== END 2020-03-01 16:35 | disposition home or self-care (01) ==
LOC: M ED 10:57
DX: F19.10 Other psychoactive substance abuse, uncomplicated (principal); F17.200 Nicotine dependence, unspecified, uncomplicated; Z79.899 Other long term (current) drug therapy
CPT/HCPCS: 80048; 80076; 80307; 84443; 84703; 85027; 99284; G0480

== ENCOUNTER 2020-03-22 16:00 | Inpatient (IN) | payer OTHER ==
[2020-03-22] MEDS ORDERED: OLANZapine INTRAMUSCULAR 10MG VIAL As Ordered ONE (16:24)
[2020-03-22] MEDS ORDERED: OLANZapine INTRAMUSCULAR 10MG VIAL ONE (21:00)
[2020-04-28 17:08] LABS: BASO % 0.4 % (0.0-1.0); EOS % 0.3 % (0.0-3.0); HEMOGLOBIN 9.5 g/dl (12.0-15.5); LYMPH # 1.9 10^3/uL (1.5-5.0); LYMPH % 19.5 % (24.0-44.0); MEAN CORPUSCULAR HEMOGLOBIN 22.1 pg (27.0-33.0); MEAN CORPUSCULAR HGB CONC 29.7 g/dl (32.0-36.5); MEAN CORPUSCULAR VOLUME 74.4 fl (80.0-96.0); MONO % 9.9 % (0.0-5.0); NEUTROPHILS # 6.7 10^3/uL (1.5-8.5); NEUTROPHILS % 69.6 % (36.0-66.0); PLATELET COUNT, AUTOMATED 399 10^3/uL (150-450); WHITE BLOOD COUNT 9.7 10^3/uL (4.0-10.0)
--- NOTE | 2020-05-28 07:29 | MHHPE ---
DATE OF ADMISSION: 03/22/2020 DATE OF EVALUATION: 03/23/2020 I do want to clarify that the [facility] entire computer system is down and so I am not able to access any information from the records from this patients prior treatment, and so the only information I have is as follows through the emergency room record. The patient was very agitated, aggressive, and had to be quoted and so very little information was obtained from the patient. Even today, when I saw the patient, she was not very cooperative and very irritable and complaining that she is just being shot up with medications and stating she did not want to be in the hospital. I do know this patient from the past, because at one point I was treating her at [facility], and for quite a while she was stable on Abilify Maintena 400 mg intramuscular (IM) every 4 months. She had a significant history of cannabis abuse and she successfully did treatment at [facility] for that, but then eventually she decompensated and was lost to contact and I believe she started to use drugs again. According to the emergency room report, the patient was on a standoff with the police for about 12 hours in her apartment. The patient apparently was making a lot of noise in her apartment and the police were called and then she became very angry, opened the door to the police, she had a dagger and a knife in one hand and the other and a chain with a lock and she was threatening that if they tried to come in that she was going to hurt them, and that is all the information that we have at this point on this patient. PAST PSYCHIATRIC HISTORY: Unable to obtain. FAMILY HISTORY: Unable to obtain. MEDICAL HISTORY: Unable to obtain. ABUSE HISTORY: Unable to obtain. SUBSTANCE ABUSE HISTORY: Unable to obtain, but I do know that she has a significant history of at least cannabis abuse in the patient. DIAGNOSIS: I cannot remember exactly, but it was either bipolar disorder or schizoaffective disorder bipolar type. TREATMENT PLAN: At this point, the patient will be treated with some Zyprexa Zydis 10 mg every 4 hours as needed for any aggressive agitative behavior and psychotic symptoms. I asked her if she wanted to get back on Abilify by mouth so that we can get her on the Abilify Maintena again and she refused this. Hopefully, she might change her mind and be more agreeable in the future. MILTON
--- NOTE | 2020-05-28 10:44 | MHIPN ---
DATE: 03/24/2020 I want to clarify we do not have any internet or computer services available in the hospital for some days now. SUBJECTIVE: The patient today tells me I am angry. She continues to be very angry at asset management lead because she feels they have been after me. The patient had been on a standoff for 12 hours with the police in her apartment. I reminded her in the past, she had done well with Abilify Maintena monthly injection, but she became angry and said and I dont be a guinea pig. MENTAL STATUS EXAMINATION: This patient is alert and oriented x3. Eye contact fair. She has verbally spontaneous. No formal thought disorder noted. Mood is angry. Affect is labile. She appears to be acutely psychotic. She is not suicidal, but keeps voicing homicidal ideations towards the asset management lead. Concentration is poor. Insight and judgment are poor. DIAGNOSIS: Bipolar disorder, manic. TREATMENT PLAN: At this point, we will continue the patient on Zyprexa, and I will continue to encourage her to start on the Abilify Maintena; because at one point, I do know the patient did well on this monthly injection because she used to be my patient at [facility] at the time. MILTON
[2020-06-01 12:13] LABS: ACETAMINOPHEN LEVEL < 2.0 UG/ML (10.0-30.0); ALBUMIN 3.9 GM/DL (3.2-5.2); ALT/SGPT 24 U/L (12-78); BILIRUBIN,DIRECT 0.1 MG/DL (0.0-0.2); BILIRUBIN,TOTAL 0.5 MG/DL (0.2-1.0); BLOOD UREA NITROGEN 12 MG/DL (7-18); CALCIUM LEVEL 8.9 MG/DL (8.5-10.1); CARBON DIOXIDE LEVEL 26 MEQ/L (21-32); CHLORIDE LEVEL 104 MEQ/L (98-107); CREATININE FOR GFR 0.85 MG/DL (0.55-1.30); ETHYL ALCOHOL (ETHANOL) < 0.003 % (0.000-0.010); GLOMERULAR FILTRATION RATE > 60.0 (>60); GLUCOSE, FASTING 62 MG/DL (70-100); POTASSIUM SERUM 3.3 MEQ/L (3.5-5.1); SODIUM LEVEL 139 MEQ/L (136-145); THYROID STIMULATING HORMONE 0.361 uIU/ML (0.358-3.740); TOTAL PROTEIN 7.4 GM/DL (6.4-8.2)
[2020-06-01 12:14] LABS: HCG, SERUM QUALITATIVE NEGATIVE (NEGATIVE)
[2020-06-03 00:13] LABS: AMPHETAMINES LEVEL URINE POSITIVE (NEGATIVE); BARBITURATES URINE NEGATIVE (NEGATIVE); BENZODIAZEPINES URINE NEGATIVE (NEGATIVE); CANNABINOIDS URINE POSITIVE (NEGATIVE); COCAINE METABOLITE URINE NEGATIVE (NEGATIVE); METHADONE URINE NEGATIVE (NEGATIVE); OPIATES URINE NEGATIVE (NEGATIVE); PHENCYCLIDINE URINE NEGATIVE (NEGATIVE)
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
== END 2020-03-26 11:30 | disposition home or self-care (01) | DRG 0 ==
LOC: M ED 16:00 → M PSY 23:20
PROVIDERS: ADMIT Psychiatry & Neurology Addiction Medicine; ATTEND Psychiatry & Neurology Addiction Medicine
DX: 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, 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, unspecified (principal); F15.20 Other stimulant dependence, uncomplicated; F43.10 Post-traumatic stress disorder, unspecified; F60.2 Antisocial personality disorder

== ENCOUNTER 2020-07-29 17:15 | Inpatient (IN) | payer OTHER ==
[~2020-07-29] VITALS: Ht 152.4 cm; Wt 59.9 kg
[2020-07-29] MEDS ORDERED: LORazepam 2 MG/ML VIAL As Ordered ONE (17:29)
[2020-07-29] MEDS ORDERED: HALOPERIDOL 5MG/ML VIAL (J1630 PER 1) IM ONE (17:30)
[2020-07-29] MEDS ORDERED: diphenhydrAMINE 50MG/ML VIAL (J1200) IM ONE (17:30)
[2020-07-29] MEDS ORDERED: LORazepam 2 MG/ML VIAL IM ONE (17:30)
[2020-07-29] MEDS ORDERED: LORazepam 2 MG/ML VIAL IV STA ×4 (18:26→22:27)
[2020-07-29 18:29] LABS: HEMOGLOBIN 9.1 g/dl (12.0-15.5); MEAN CORPUSCULAR HEMOGLOBIN 22.3 pg (27.0-33.0); MEAN CORPUSCULAR HGB CONC 29.4 g/dl (32.0-36.5); PLATELET COUNT, AUTOMATED 339 10^3/uL (150-450); RED BLOOD COUNT 4.08 10^6/uL (4.00-5.40); WHITE BLOOD COUNT 12.1 10^3/uL (4.0-10.0)
[2020-07-29 18:56] LABS: HCG, SERUM QUALITATIVE NEGATIVE (NEGATIVE)
[2020-07-29 19:05] LABS: ACETAMINOPHEN LEVEL < 2.0 UG/ML (10.0-30.0); ALT/SGPT 32 U/L (12-78); BILIRUBIN,DIRECT 0.1 MG/DL (0.0-0.2); BILIRUBIN,TOTAL 0.5 MG/DL (0.2-1.0); BLOOD UREA NITROGEN 17 MG/DL (7-18); CALCIUM LEVEL 8.8 MG/DL (8.5-10.1); CARBON DIOXIDE LEVEL 22 MEQ/L (21-32); CHLORIDE LEVEL 104 MEQ/L (98-107); CREATININE FOR GFR 0.88 MG/DL (0.55-1.30); ETHYL ALCOHOL (ETHANOL) 0.005 % (0.000-0.010); GLOMERULAR FILTRATION RATE > 60.0 (>60); GLUCOSE, FASTING 63 MG/DL (70-100); POTASSIUM SERUM 4.7 MEQ/L (3.5-5.1); SODIUM LEVEL 135 MEQ/L (136-145); TOTAL PROTEIN 7.3 GM/DL (6.4-8.2)
[2020-07-29] MEDS ORDERED: NS 1,000 ML IV ONE (19:45)
[2020-07-29] MEDS ORDERED: DEXTROSE 50% 50 ML SYRINGE IV STA (21:23)
[2020-07-29 21:29] LABS: AMPHETAMINES LEVEL URINE POSITIVE (NEGATIVE); BARBITURATES URINE NEGATIVE (NEGATIVE); BENZODIAZEPINES URINE NEGATIVE (NEGATIVE); CANNABINOIDS URINE POSITIVE (NEGATIVE); COCAINE METABOLITE URINE NEGATIVE (NEGATIVE); METHADONE URINE NEGATIVE (NEGATIVE); OPIATES URINE NEGATIVE (NEGATIVE); PHENCYCLIDINE URINE NEGATIVE (NEGATIVE)
[2020-07-30] VITALS (9 sets, daily range): BP systolic 118–155; BP diastolic 68–78; O2SAT 91–98
[2020-07-30] MEDS ORDERED: GLUCAGON INJ 1MG VIAL SC PRN (00:30)
[2020-07-30] MEDS ORDERED: GLUCOSE 4GM CHEW TABLET PO PRN (00:30)
[2020-07-30] MEDS ORDERED: DEXTROSE 50% 50 ML SYRINGE IV PRN (00:30)
[2020-07-30] MEDS ORDERED: DEXTROSE 50% 50 ML SYRINGE IV STA ×2 (00:39→06:26)
[2020-07-30] MEDS ORDERED: NICOTINE POLACRILEX 2 MG GUM PO PRN (00:45)
--- NOTE | 2020-07-30 00:45 | HPEPDOC ---
[facility] Medical History & Physical Date of Admission Jul 30, 2020 Date of Service: Jul 30, 2020 History and Physical Chief complaint: Presented to the ER brought in by police for agitation History of present illness: Patient is a 35-year-old female with an extensive psychiatric history who presented to the emergency room brought in by police for agitation. Patient was reported to have been picked up outside of [employer]. Patient had gone into store screaming and yelling obscenities. Patient was throwing cups at [place] tried to fight police. Patient was arrested for disorderly conduct. On way to station she had reported "I want to , I should , you need to shoot me, you need to kill me. Just shoot me now." Patient was then peppers prayed. Upon arrival to ER, 5:27 PM patient had received Haldol 10 mg IM, lorazepam 2 mg IM 1, diphenhydramine 50 mg IM 1. Patient was then decontaminated. Patient was placed in restraints. Patient remained agitated and received Ativan 2 mg IV 4 doses from 6:36PM to 10:27PM. Hospitalist services called for further evaluation and treatment after patient was drowsy / altered mental status. Patient is unable to answer any questions. Appears to be moving all 4 extremities to painful stimuli. Majority of the information has been collected from the medical record as patient is unable to provide any details of her history Past Medical History: Bipolar disorder Paranoid/psychosis Insomnia Polysubstance abuse (cannabinoids, amphetamines) Noncompliance with medications Past Surgical History: Left fifth digit surgery Allergies: See below Medications: See below Family History: - As per the medical record; patients father has history of suicide. Mother with no reported medical history Social History: - Denies the use of alcohol; reported smoker of 20 years. Reports use of methamphetamine and marijuana - Denies recent travel or sick contacts Review of Systems: 10 point review of systems unable to be completed as patient is lethargic Physical exam: - Vitals: BP [123/70], HR [75], RR [18], Sat [99%RA], Temp [98.4F] - General: Lying in bed, No acute distress, Speaking in full sentences, AAOx3 - HEENT: NC, AT, PERRLA, EOMI - CVS: RRR, +S1S2, - Murmurs / rubs / gallops - Lungs: Fair air entry bilaterally, No appreciable wheezing / rales / rhonchi - Abdomen: Soft, Non-distended, Non-tender - Extremities: No lower extremity edema, No calf tenderness - Neuro: No focal motor or sensory deficit - Skin: No visible rashes Labs: See below Imaging: See below EKG: See below Assessment and Plan: Acute toxic encephalopathy - likely 2/2 medications (Ativan / Haldol / Benadryl) and possibly 2/2 Amphetamine use - Brought in by police after she was noted to be psychotic, outside of a liquor store - Patient has been agitated and combative while in the emergency room - Patient is able to move all 4 extremities and responds to painful stimuli - Urine drug screen positive for amphetamines and marijuana Suicidal ideation - Patient had reported that she wanted the police to kill her - Will place on suicidal precautions - One to one observation / sitter Mild Hyponatremia - Likely secondary to dehydration - Will c/w IV fluid hydration - Will consider workup if still unresolved Leukocytosis - Patient remains afebrile and hemodynamically stable - Will hold off antibiotics at this time Normocytic anemia - Hemoglobin appears to be at baseline - Will continue to trend Bipolar disorder - History of paranoia and psychosis - Will hold Aripiprazole; will resume once more awake Nicotine dependence - Will start Nicotine gum Insomnia - Currently not on medications DVT prophylaxis - Will start TEDs/Sequentials Vital Signs Vital Signs Date Time Temp Pulse Resp B/P (MAP) Pulse Ox O2 Delivery O2 Flow Rate FiO2 07/29/20 23:31 123/70 (87) 07/29/20 23:25 75 99 07/29/20 19:02 Room Air 07/29/20 18:45 18 07/29/20 18:30 98.4 Laboratory Data Labs 24H Laboratory Tests 2 07/29/20 18:10: Nucleated Red Blood Cells % (auto) 0.0, Anion Gap 9, Glomerular Filtration Rate > 60.0, Calcium Level 8.8, Total Bilirubin 0.5, Direct Bilirubin 0.1, Aspartate Amino Transf (AST/SGOT) 56H, Alanine Aminotransferase (ALT/SGPT) 32, Alkaline Phosphatase 74, Total Protein 7.3, Albumin 4.0, Albumin/Globulin Ratio 1.2, Thyroid Stimulating Hormone (TSH) 0.350L, Human Chorionic Gonadotropin, Qual NEGATIVE, Salicylates Level 2.0L, Acetaminophen Level < 2.0L, Ethyl Alcohol Level 0.005 07/29/20 20:58: Urine Opiates Screen NEGATIVE, Urine Methadone Screen NEGATIVE, Urine Barbiturates Screen NEGATIVE, Urine Phencyclidine Screen NEGATIVE, Urine Amphetamines Screen POSITIVEH, Urine Benzodiazepines Screen NEGATIVE, Urine Cocaine Metabolite Screen NEGATIVE, Urine Cannabinoids Screen POSITIVEH 07/29/20 22:43: Bedside Glucose (Misc Panel) 100 07/30/20 00:25: Bedside Glucose (Misc Panel) 63L CBC/BMP Laboratory Tests 07/29/20 18:10 Home Medications Scheduled Aripiprazole (Abilify Maintena) 400 Mg Suser.syr, 400 MG IM QMONTH for thoughts LAST FILLED 04/07/19 Scheduled PRN Nicotine Polacrilex (Nicotine Gum) 2 Mg Gum, 2 MG PO Q2HP PRN for NICOTINE WITHDRAWAL Allergies Coded Allergies: No Known Allergies (Unverified , 05/11/19) ARNULFO PACHECO MD Jul 30, 2020 00:45
[2020-07-30] MEDS: D5W/0.9% SODIUM CHLORIDE 1,000 ML IV SCH ×2 (00:50→14:33)
[2020-07-31] VITALS (11 sets, daily range): BP systolic 124–134; BP diastolic 61–75; O2SAT 93–95
[2020-07-31] MEDS: D5W/0.9% SODIUM CHLORIDE 1,000 ML IV SCH ×2 (01:15→13:52)
[2020-07-31 05:40] LABS: BASO % 0.2 % (0.0-1.0); EOS % 0.1 % (0.0-3.0); HEMOGLOBIN 9.3 g/dl (12.0-15.5); LYMPH # 1.6 10^3/uL (1.5-5.0); LYMPH % 17.1 % (24.0-44.0); MEAN CORPUSCULAR HEMOGLOBIN 22.1 pg (27.0-33.0); MEAN CORPUSCULAR HGB CONC 29.1 g/dl (32.0-36.5); MEAN CORPUSCULAR VOLUME 76.2 fl (80.0-96.0); MONO % 11.4 % (0.0-5.0); NEUTROPHILS # 6.5 10^3/uL (1.5-8.5); PLATELET COUNT, AUTOMATED 325 10^3/uL (150-450); WHITE BLOOD COUNT 9.1 10^3/uL (4.0-10.0)
[2020-07-31 06:22] LABS: BLOOD UREA NITROGEN 3 MG/DL (7-18); CALCIUM LEVEL 8.1 MG/DL (8.5-10.1); CARBON DIOXIDE LEVEL 26 MEQ/L (21-32); CHLORIDE LEVEL 110 MEQ/L (98-107); CREATININE FOR GFR 0.59 MG/DL (0.55-1.30); GLOMERULAR FILTRATION RATE > 60.0 (>60); GLUCOSE, FASTING 88 MG/DL (70-100); MAGNESIUM LEVEL 1.9 MG/DL (1.8-2.4); POTASSIUM SERUM 3.6 MEQ/L (3.5-5.1); SODIUM LEVEL 139 MEQ/L (136-145)
[2020-07-31] MEDS ORDERED: NICO2GUM PO (07:28)
--- NOTE | 2020-07-31 12:05 | DS.PDOC ---
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 Patient was at [employer] and fighting police. Patient was heard saying," shoot me. I want to ." The patient was brought into the emergency room, was given Haldol, lorazepam. Diphenhydramine. Urine tox screen was positive for methamphetamine and she was admitted for suicide ideation and methamphetamine abuse. Overnight. Patient had no issues on telemetry. She remains tachycardic, received IV fluids and had no aspiration risk. Patient was medically stabilized and psychiatrist, Dr. Ring was consulted for [facility] admission DISCHARGE MEDICATIONS: Please see below. ALLERGIES: Please see below. PHYSICAL EXAMINATION ON DISCHARGE: VITAL SIGNS: Please see below. GEN: Withdrawn, does not open her eyes, answers questions appropriately. No distress HEENT: Dry mucous membranes. No carotid bruit LUNGS: Clear to auscultation HEART: S1, S2, sinus tachycardia ABD: Positive bowel sounds, soft, nontender, nondistended EXT: No cyanosis, clubbing or pitting edema LABORATORY DATA: Please see below. IMAGING: See below TIME SPENT ON DISCHARGE: 30 minutes. Vital Signs/I&Os Vital Signs Date Time Temp Pulse Resp B/P (MAP) Pulse Ox O2 Delivery O2 Flow Rate FiO2 07/31/20 07:23 98.4 106 20 124/73 (90) 95 Room Air I&O- Last 24 Hours up to 6 AM 07/31/20 05:59 Intake Total 1940 ml Output Total 700 ml Balance 1240 ml Laboratory Data Labs 24H Laboratory Tests 2 07/30/20 20:39: Bedside Glucose (Misc Panel) 83 07/31/20 05:20: Immature Granulocyte % (Auto) 0.2, Neutrophils (%) (Auto) 71.0H, Lymphocytes (%) (Auto) 17.1L, Monocytes (%) (Auto) 11.4H, Eosinophils (%) (Auto) 0.1, Basophils (%) (Auto) 0.2, Neutrophils # (Auto) 6.5, Lymphocytes # (Auto) 1.6, Monocytes # (Auto) 1.0H, Eosinophils # (Auto) 0.0, Basophils # (Auto) 0.0, Nucleated Red Bl ood Cells % (auto) 0.0, Anion Gap 3L, Glomerular Filtration Rate > 60.0, Calcium Level 8.1L, Magnesium Level 1.9 CBC/BMP Laboratory Tests 07/31/20 05:20 FSBS Laboratory Tests Test 07/30/20 20:39 Range/Units Bedside Glucose (Misc Panel) 83 70-105 MG/DL Discharge Medications Scheduled PRN Nicotine Polacrilex (Nicotine Gum) 2 Mg Gum, 2 MG PO Q4HP PRN for NICOTINE WITHDRAWAL Allergies Coded Allergies: No Known Allergies (Unverified , 05/11/19) RAYA TUTTLE MD Jul 31, 2020 12:04
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
--- NOTE | 2020-08-02 10:07 | CR ---
PSYCHIATRIC CONSULTATION DATE OF CONSULT: 07/31/2020 HISTORY OF PRESENT ILLNESS: I was asked to see this 35-year-old woman who was admitted after being brought to the hospital by Police for agitation. She was picked up outside of [employer]. She was screaming and yelling. She was throwing cups at the Police. She was trying to fight the Police. She was arrested of Disorderly Conduct and then she voiced that she wanted to , that she wanted them to shoot her. Upon arrival in the Emergency Room she had to be given medications for agitation and placed in restraints. Of note is that this patient has a significant history of psychiatric treatment. She actually has a diagnosis of bipolar disorder and also she has a history of substance abuse. Her toxicology was positive for methadone and cannabis. When I went to see the patient today she became very agitated, she was angry and belligerent and told me that she did not want to talk to me. MENTAL STATUS EXAM: I am not able to do the Mental Status Exam as the patient basically would not talk to me. DIAGNOSES: 1. Bipolar disorder. 2. Heroin use disorder. 3. Cannabis use disorder. TREATMENT PLAN: The patient at this point is felt to be a significant danger to self. She had voiced suicidal ideation to the Police and as she is medically stable she will be transferred to the Psychiatric Unit.
== END 2020-07-31 19:53 | DRG 52 ==
LOC: M ED 17:15 → M ED INP 07-30 00:27 → M PCU 07-30 16:24
PROVIDERS: ADMIT Internal Medicine; ATTEND General Practice
DX: G92 Toxic encephalopathy (principal); R45.851 Suicidal ideations; E87.1 Hypo-osmolality and hyponatremia; F31.9 Bipolar disorder, unspecified; Z91.14 Patient's other noncompliance with medication regimen; F12.10 Cannabis abuse, uncomplicated; F15.10 Other stimulant abuse, uncomplicated; D64.9 Anemia, unspecified; G47.00 Insomnia, unspecified

== ENCOUNTER 2020-07-31 17:45 | Inpatient (IN) | payer MEDICAID, OTHER ==
[2020-07-31] MEDS ORDERED: traZODone 50 MG TAB PO PRN (19:00)
[2020-07-31] MEDS ORDERED: MOM 30ML SUSPENSION UDC PO PRN (19:00)
[2020-07-31] MEDS ORDERED: OLANZapine ORAL DISINTEGRATING TAB 5MG PO PRN (19:00)
[2020-07-31] MEDS ORDERED: MAALOX 30 ML SUSP *UDC PO PRN (19:00)
[2020-07-31] MEDS ORDERED: ACETAMINOPHEN TAB 650MG DOSE (2X325MG) PO PRN (19:00)
[2020-07-31 20:19] VITALS: BP 119/67
[2020-08-01 06:01] VITALS: BP 133/55
--- NOTE | 2020-08-01 13:24 | HPEPDOC ---
[facility] Medical History & Physical Date of Admission Jul 31, 2020 Date of Service: Aug 01, 2020 History and Physical Chief complaint: Routine medical exam "I don't want to talk to any doctor. I'm f----- annoyed you put me in here against my will." History of present illness: (refused medical interview) 35-year-old female admitted to the medical floor due to suicidal ideation and methamphetamine use was treated with IV fluids, placed on telemetry and remained in sinus tachycardia. Urine toxicology screen was positive for methamphetamine and cannabinoids. She was treated conservatively with sitter at the bedside due to suicidal ideation. Psychiatrist was consulted when she was medically stabilized and patient is currently admitted to the inpatient mental health unit due to severe depression and suicidal ideation. Past Medical History: . Acute encephalopathy due to methamphetamine and cannabinoid use Suicidal ideation Bipolar disorder Paranoid/psychosis Insomnia Polysubstance abuse (cannabinoids, amphetamines) Noncompliance with medications Past Surgical History: Left fifth digit surgery Allergies: See below Medications: See below Family History: - As per the medical record; patients father has history of suicide. Mother with no reported medical history Social History: - Denies the use of alcohol; reported smoker of 20 years. Reports use of methamphetamine and marijuana - Denies recent travel or sick contacts Review of Systems: 10 point review of systems unable to be completed as patient is lethargic Physical exam: Vital signs see below refused exam Laboratory data reviewed Assessment and plan: 35-year-old female admitted to the medical floor due to suicidal ideation and methamphetamine use was treated with IV fluids, placed on telemetry and remained in sinus tachycardia. Urine toxicology screen was positive for methamphetamine and cannabinoids. She was treated conservatively with sitter at the bedside due to suicidal ideation. Psychiatrist was consulted when she was medically stabilized and patient is currently admitted to the inpatient mental health unit due to severe depression and suicidal ideation.pt refused medical interview and exam. Severe depression Suicide ideation Polysubstance abuse with methamphetamine and cannabinoids Bipolar disorder Paranoid/psychosis Insomnia , Obesity Noncompliance with medications Plan: Psychiatrist to address severe depression and suicidal ideation with adjustment of medications. No acute medical issues. Hospitalist will sign off. Vital Signs Vital Signs Date Time Temp Pulse Resp B/P (MAP) Pulse Ox O2 Delivery O2 Flow Rate FiO2 08/01/20 06:01 98.5 90 16 133/55 (81) 96 Room Air Home Medications Scheduled PRN Nicotine Polacrilex (Nicotine Gum) 2 Mg Gum, 2 MG PO Q4HP PRN for NICOTINE WITHDRAWAL Allergies Coded Allergies: No Known Allergies (Unverified , 05/11/19) A-FIB/CHADSVASC A-FIB History Current/History of A-Fib/PAF?: No Current PO Anticoag Therapy: No Age/Risk Factor Scoring CHADSVASC: CHADSVASC Response (Comments) Value Age Risk Factor Age < 65 years old 0 Gender Risk Factor Female 1 Hx of CHF No 0 Hx of HTN No 0 Hx of Stroke/TIA/or VTE No 0 Hx of Diabetes No 0 Hx of Vascular Disease No 0 Total 1 Treatment Treatment ordered: NONE RAYA TUTTLE MD Aug 01, 2020 13:10
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
[2020-08-02 06:39] VITALS: BP 111/73
[2020-08-02 17:12] VITALS: BP 128/82
[2020-08-03 06:00] VITALS: BP 136/91
[2020-08-03 16:37] VITALS: BP 126/78
[2020-08-04 06:44] VITALS: BP 128/76
[2020-08-04 17:44] VITALS: BP 133/78
[2020-08-05 06:33] VITALS: BP 130/78
--- NOTE | 2020-08-05 08:10 | MHIPNPDOC ---
[facility] Progress Note Progress Note DATE OF SERVICE: 08/05/20 HISTORY: The patient's attempted being met with, however when she described how she needed another night of observation the patient became highly agitated sc reaming yelling or an extraordinary amount of time, she generally screamed and made threats towards this provider for the majority of the day, she required being coded as she started to become object aggressive. She continued to make various profanities stating that she didn't understand why she was not allowed to leave, she demonstrated no insight intact, and denied any substance use despite this being a critical part of her time on the medical unit, it appears that nursing has continued and noticed paranoid ideation and grandiose thoughts as well, the patient generally is quite labile switching from screaming for hours at a time to friendliness to the screaming.. VITAL SIGNS: See below. NEW TEST RESULTS: None. CURRENT MEDICATIONS: See below. MENTAL STATUS EXAMINATION: General: [Well dressed with good hygiene] Speech: Pressured Thought processes: Tangential Thought content: Paranoid Abstract reasoning, and computation: Impaired Description of associations:. Impaired Description of abnormal or psychotic thoughts: Angry thoughts of wine to harm this provider for not discharge Judgment: Impaired Insight: Impaired Orientation: [Alert and orientated 3] Recent and remote memory: [Intact] Attention span and concentration: Impaired Fund of knowledge: [Adequate] Mood: "I'm going to spit in your face" Affect: Highly labile and angry DIAGNOSES: 1. Other bipolar disorder. 2. Antisocial personality disorder. 3. Methamphetamine use disorder severe. ASSESSMENT: Patient this time has requested a court hearing for observation here on this unit has demonstrated a significant amount paranoid thoughts that usually resolved quite quickly previously been attributed to methamphetamine use, she is highly agitated and her explosive reaction to get a mild frustration removed any lingering doubts about whether she needs continued treatment, as she appears to be quite explosive and agitated more so than I've ever seen previous admissions. She is refused medications I'll continue to offer them, she will likely need a treatment over objection if she does not begin to engage, as she appears to have provoked a fairly significant amounts psychosis. MANAGEMENT PLAN: Start Abilify 5 mg daily. TIME SPENT: 30 minutes. Vital Signs Vital Signs Date Time Temp Pulse Resp B/P (MAP) Pulse Ox O2 Delivery O2 Flow Rate FiO2 08/05/20 06:33 96.7 87 16 130/78 (95) 98 Room Air Current Medications Current Medications Medications (Trade) Dose Ordered Sig/Dina Route PRN Reason Start Time Stop Time Status Last Admin Dose Admin Acetaminophen (Tylenol Tab) 650 mg Q6HP PRN PO HEADACHE or DISCOMFORT 07/31/20 19:00 Al Hydrox/Mg Hydrox/Simethicone (Mylanta) 30 ml Q4HP PRN PO HEARTBURN/INDIGESTION 07/31/20 19:00 Magnesium Hydroxide (Milk Of Magnesia) 30 ml DAILYPRN PRN PO CONSTIPATION 07/31/20 19:00 Olanzapine (ZyPREXA ZYDIS) 10 mg Q4HP PRN PO AGITATION/AMXIETY 07/31/20 19:00 Trazodone HCl (Desyrel) 50 mg QHSP PRN PO INSOMNIA 07/31/20 19:00 Allergies Coded Allergies: No Known Allergies (Unverified , 05/11/19) CONSUELO MENDEZ DO Aug 05, 2020 08:10
[2020-08-05] MEDS ORDERED: HALOPERIDOL 5MG/ML VIAL (J1630 PER 1) IM STA (14:30)
[2020-08-05] MEDS ORDERED: diphenhydrAMINE 50MG/ML VIAL (J1200) IM STA (14:30)
[2020-08-05] MEDS ORDERED: LORazepam 2 MG/ML VIAL IM STA (14:30)
[2020-08-05] MEDS ORDERED: LORazepam 2 MG/ML VIAL As Ordered ONE (14:32)
[2020-08-05] MEDS ORDERED: diphenhydrAMINE 50MG/ML VIAL (J1200) As Ordered ONE (14:33)
[2020-08-05] MEDS ORDERED: HALOPERIDOL 5MG/ML VIAL (J1630 PER 1) As Ordered ONE (14:33)
--- NOTE | 2020-08-05 15:01 | MHIR ---
General Date: Aug 05, 2020 Time Initiated: 14:25 Restraint Documentation Order/Evaluation FACE TO FACE: Yes, observed through protected window PHYSICIAN ASSESSMENT: patient increasing in agitation and aggression REASON FOR RESTRAINT: Patient poses imminent danger of harming self or others: reportedly attempted to throw a chair, after being increasingly agitated over t he day, reportedly was agitated due to another patient leaving DE-ESCALATION INTERVENTIONS ATTEMPTED BEFORE USE OF RESTRAINTS: verbal, multiple offers of PO meds [MECHANICAL AND/OR CHEMICAL] RESTRAINTS USED: 10 Haldol/Ativan 2mg/50 diphenhydramine LENGTH OF TIME ORDERED IN RESTRAINTS: 240 minutes. WHEN TO DISCONTINUE RESTRAINTS: When in behavioral control for sufficient time to assure others safety. Post evaluation of restraint due in 24 hours. CONSUELO MENDEZ DO Aug 05, 2020 15:01
[2020-08-06 06:35] VITALS: BP 92/78
--- NOTE | 2020-08-06 09:15 | MHPR ---
General Date: Aug 06, 2020 Time: 09:40 Post-Restraint Evaluation THE OUTCOME OF THE RESTRAINT: behavioral control restored temporarily EFFECTIVENESS OF THE RESTRAINT: Mechanical and/or chemical: [Positive]. ANY EVIDENCE THAT THE PATIENT WAS AFFECTED EMOTIONALLY: n/a ANY NEED FOR COUNSELING/ASSISTANCE: unable patient isolating, irritable doesn't want to interact CHANGES IN TREATMENT PLAN: continue with retention hearing, considering TOO RECOMMENDATIONS FOR FUTURE INCIDENTS: earlier intervention CONSUELO MENDEZ DO Aug 06, 2020 09:15
--- NOTE | 2020-08-06 09:15 | MHIPNPDOC ---
[facility] Progress Note Progress Note DATE OF SERVICE: 08/06/20 HISTORY: The patient has significant agitation throughout the day, yelling and screaming various profanities and become increasingly threatening, she is coded quite early on the day requiring multiple injections of medications to become more calm, the patient was spitting at staff and generally engaged in aggressive behavior even while in restraints. VITAL SIGNS: See below. NEW TEST RESULTS: None. CURRENT MEDICATIONS: See below. MENTAL STATUS EXAMINATION: General: [Well dressed with good hygiene] Speech: Pressured Thought processes: Tangential Thought content: Paranoid Abstract reasoning, and computation: Impaired Description of associations:. Impaired Description of abnormal or psychotic thoughts: Angry thoughts of wine to harm this provider for not discharge Judgment: Impaired Insight: Impaired Orientation: [Alert and orientated 3] Recent and remote memory: [Intact] Attention span and concentration: Impaired Fund of knowledge: [Adequate] Mood: "Fuck you scumbag" Affect: Highly labile and angry DIAGNOSES: 1. Other bipolar disorder. 2. Antisocial personality disorder. 3. Methamphetamine use disorder severe. ASSESSMENT: The patient is still quite paranoid and aggressive, will need to continue with treatment offering, retention I feel quite confident at this time due to the significant agitation level, the patient has extremely poor insight into seem to realize that the agitation is what she is being coded for and her threat threatening nature, unable to be redirected she will may even need treatment over objection MANAGEMENT PLAN: Continue offering Abilify 5 mg daily. Vital Signs Vital Signs Date Time Temp Pulse Resp B/P (MAP) Pulse Ox O2 Delivery O2 Flow Rate FiO2 08/06/20 06:35 98.1 73 14 92/78 (83) 96 Room Air Current Medications Current Medications Medications (Trade) Dose Ordered Sig/Dina Route PRN Reason Start Time Stop Time Status Last Admin Dose Admin Acetaminophen (Tylenol Tab) 650 mg Q6HP PRN PO HEADACHE or DISCOMFORT 07/31/20 19:00 Al Hydrox/Mg Hydrox/Simethicone (Mylanta) 30 ml Q4HP PRN PO HEARTBURN/INDIGESTION 07/31/20 19:00 Aripiprazole (AbiLIFY) 5 mg QHS PO 08/05/20 21:00 Diphenhydramine HCl (Benadryl) 50 mg STAT STAT IM 08/05/20 14:30 08/05/20 14:33 DC 08/05/20 14:43 Haloperidol (Haldol) 5 mg STAT STAT IM 08/05/20 14:30 08/05/20 14:33 DC 08/05/20 14:42 Lorazepam (Ativan) 2 mg STAT STAT IM 08/05/20 14:30 08/05/20 14:33 DC 08/05/20 14:43 Magnesium Hydroxide (Milk Of Magnesia) 30 ml DAILYPRN PRN PO CONSTIPATION 07/31/20 19:00 Olanzapine (ZyPREXA ZYDIS) 10 mg Q4HP PRN PO AGITATION/AMXIETY 07/31/20 19:00 Trazodone HCl (Desyrel) 50 mg QHSP PRN PO INSOMNIA 07/31/20 19:00 Allergies Coded Allergies: No Known Allergies (Unverified , 05/11/19) CONSUELO MENDEZ DO Aug 06, 2020 09:15
[2020-08-06] MEDS ORDERED: HALOPERIDOL 5MG/ML VIAL (J1630 PER 1) IM STA ×2 (09:41→11:08)
[2020-08-06] MEDS ORDERED: diphenhydrAMINE 50MG/ML VIAL (J1200) IM STA ×2 (09:41→11:08)
[2020-08-06] MEDS ORDERED: LORazepam 2 MG/ML VIAL IM STA ×2 (09:41→11:08)
--- NOTE | 2020-08-06 09:44 | MHIR ---
General Date: Aug 06, 2020 Time Initiated: 09:42 Restraint Documentation Order/Evaluation FACE TO FACE: Yes, observed entire incident PHYSICIAN ASSESSMENT: increasing aggression REASON FOR RESTRAINT: Patient poses imminent danger of harming self or others: belligerent, threatening, yelling and posturing DE-ESCALATION INTERVENTIONS ATTEMPTED BEFORE USE OF RESTRAINTS: verbal, PO offering [MECHANICAL AND/OR CHEMICAL] RESTRAINTS USED: 4 point/haldol 10/2/100mg LENGTH OF TIME ORDERED IN RESTRAINTS: 240 minutes. WHEN TO DISCONTINUE RESTRAINT: when in behavioral control Post evaluation of restraint due in 24 hours. CONSUELO MENDEZ DO Aug 06, 2020 09:44
[2020-08-06] MEDS ORDERED: LORazepam 2 MG/ML VIAL As Ordered ONE (09:48)
[2020-08-06] MEDS ORDERED: HALOPERIDOL 5MG/ML VIAL (J1630 PER 1) As Ordered ONE (09:49)
--- NOTE | 2020-08-06 17:12 | MHPR ---
General Date: Aug 06, 2020 Time: 17:34 Post-Restraint Evaluation THE OUTCOME OF THE RESTRAINT: positive, less agitated EFFECTIVENESS OF THE RESTRAINT: Mechanical and/or chemical: [Positive]. ANY EVIDENCE THAT THE PATIENT WAS AFFECTED EMOTIONALLY: n/a ANY NEED FOR COUNSELING/ASSISTANCE: no CHANGES IN TREATMENT PLAN: treatment continue to be offered RECOMMENDATIONS FOR FUTURE INCIDENTS: higher dose of initial agitation medicines with earlier interventions CONSUELO MENDEZ DO Aug 06, 2020 17:12
[2020-08-07 06:00] VITALS: BP 122/77
--- NOTE | 2020-08-07 11:19 | MHIPNPDOC ---
[facility] Progress Note Progress Note DATE OF SERVICE: 08/07/20 HISTORY: The patient still has difficulty yelling and screaming although has notably longer periods of time where she is not agitated and yelling. She still required coding due to the difficulty and threatening of her behavior, she otherwise does not have much else to say that she does not want to take medications given to arguments with various people isolative to her room at other times. VITAL SIGNS: See below. NEW TEST RESULTS: None. CURRENT MEDICATIONS: See below. MENTAL STATUS EXAMINATION: General: [Well dressed with good hygiene] Speech: Pressured Thought processes: Tangential Thought content: Paranoid Abstract reasoning, and computation: Impaired Description of associations:. Impaired Description of abnormal or psychotic thoughts: Angry thoughts of wine to harm this provider for not discharge Judgment: Impaired Insight: Impaired Orientation: [Alert and orientated 3] Recent and remote memory: [Intact] Attention span and concentration: Impaired Fund of knowledge: [Adequate] Mood: "Fuck you scumbag" Affect: Highly labile and angry DIAGNOSES: 1. Other bipolar disorder. 2. Antisocial personality disorder. 3. Methamphetamine use disorder severe. ASSESSMENT: We will continue treatment at this time, she does appear to have longer periods of lucidity possibly related to the medications is not clear whether overt bipolar is present or whether substance-induced problems are improving MANAGEMENT PLAN: Continue offering Abilify 5 mg daily. Vital Signs Vital Signs Date Time Temp Pulse Resp B/P (MAP) Pulse Ox O2 Delivery O2 Flow Rate FiO2 08/07/20 06:00 97.7 85 18 122/77 (92) 99 Room Air Current Medications Current Medications Medications (Trade) Dose Ordered Sig/Dina Route PRN Reason Start Time Stop Time Status Last Admin Dose Admin Acetaminophen (Tylenol Tab) 650 mg Q6HP PRN PO HEADACHE or DISCOMFORT 07/31/20 19:00 Al Hydrox/Mg Hydrox/Simethicone (Mylanta) 30 ml Q4HP PRN PO HEARTBURN/INDIGESTION 07/31/20 19:00 Aripiprazole (AbiLIFY) 5 mg QHS PO 08/05/20 21:00 Diphenhydramine HCl (Benadryl) 50 mg STAT STAT IM 08/05/20 14:30 08/05/20 14:33 DC 08/05/20 14:43 Diphenhydramine HCl (Benadryl) 100 mg STAT STAT IM 08/06/20 09:41 08/06/20 13:37 DC 08/06/20 09:57 Diphenhydramine HCl (Benadryl) 100 mg STAT STAT IM 08/06/20 11:08 08/06/20 11:11 DC 08/06/20 11:40 Haloperidol (Haldol) 5 mg STAT STAT IM 08/05/20 14:30 08/05/20 14:33 DC 08/05/20 14:42 Haloperidol (Haldol) 10 mg STAT STAT IM 08/06/20 09:41 08/06/20 13:37 DC 08/06/20 09:58 Haloperidol (Haldol) 10 mg STAT STAT IM 08/06/20 11:08 08/06/20 11:11 DC 08/06/20 11:41 Lorazepam (Ativan) 2 mg STAT STAT IM 08/05/20 14:30 08/05/20 14:33 DC 08/05/20 14:43 Lorazepam (Ativan) 2 mg STAT STAT IM 08/06/20 09:41 08/06/20 13:37 DC 08/06/20 09:57 Lorazepam (Ativan) 2 mg STAT STAT IM 08/06/20 11:08 08/06/20 11:11 DC 08/06/20 11:41 Magnesium Hydroxide (Milk Of Magnesia) 30 ml DAILYPRN PRN PO CONSTIPATION 07/31/20 19:00 Olanzapine (ZyPREXA ZYDIS) 10 mg Q4HP PRN PO AGITATION/AMXIETY 07/31/20 19:00 Trazodone HCl (Desyrel) 50 mg QHSP PRN PO INSOMNIA 07/31/20 19:00 Allergies Coded Allergies: No Known Allergies (Unverified , 05/11/19) CONSUELO MENDEZ DO Aug 07, 2020 11:19
[2020-08-07] MEDS ORDERED: LORazepam 2 MG/ML VIAL IM STA (13:48)
[2020-08-07] MEDS ORDERED: diphenhydrAMINE 50MG/ML VIAL (J1200) IM STA (13:48)
[2020-08-07] MEDS ORDERED: HALOPERIDOL 5MG/ML VIAL (J1630 PER 1) IM STA (13:48)
[2020-08-07] MEDS ORDERED: HALOPERIDOL 5MG/ML VIAL (J1630 PER 1) As Ordered ONE (13:49)
[2020-08-07] MEDS ORDERED: diphenhydrAMINE 50MG/ML VIAL (J1200) As Ordered ONE (13:50)
--- NOTE | 2020-08-07 13:50 | MHIR ---
General Date: Aug 07, 2020 Time Initiated: 13:48 Restraint Documentation Order/Evaluation FACE TO FACE: Yes PHYSICIAN ASSESSMENT: irritable and aggressive, threatening staff and other patients, manic behavior unable to controlled REASON FOR RESTRAINT: Patient poses imminent danger of harming self or others: threatening, aggressive yelling, attempting to get into altercations with other patients DE-ESCALATION INTERVENTIONS ATTEMPTED BEFORE USE OF RESTRAINTS: verbal, PO offer [MECHANICAL AND/OR CHEMICAL] RESTRAINTS USED: 4 points/ Haldol 10/2/100mg Ativan/diphen LENGTH OF TIME ORDERED IN RESTRAINTS: 240minutes. WHEN TO DISCONTINUE RESTRAINTS when in behavioral control Post evaluation of restraint due in 24 hours. CONSUELO MENDEZ DO Aug 07, 2020 13:50
[2020-08-07] MEDS ORDERED: LORazepam 2 MG/ML VIAL As Ordered ONE (13:51)
--- NOTE | 2020-08-07 14:09 | MHCRPDOC ---
[facility] Consultation Consultation DATE OF CONSULTATION: 08/07/20 CONSULTATION REQUESTED BY: REASON FOR CONSULTATION: . RELEVANT HISTORY: . PAST PSYCHIATRIC HISTORY: PAST MEDICAL HISTORY: FAMILY HISTORY: Mother: Father: Siblings: Children: PERSONAL AND SOCIAL HISTORY: The patient was born and raised in [place]. 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 MENTAL STATUS EXAMINATION: Patient is a [AGE]-year old female, who is . Speech is . Language skills are . Thought processes including: . Thought content: . Abstract reasoning, and computation: . Description of associations: . Description of abnormal or psychotic thoughts: . Judgment: . Insight: . Orientation to . Recent and remote memory: . Attention span and concentration: . Language: . Fund of knowledge: . Mood: . Affect: . DIAGNOSIS: 1. . PLAN: 1. . 2. . Vital Signs Vital Signs Date Time Temp Pulse Resp B/P (MAP) Pulse Ox O2 Delivery O2 Flow Rate FiO2 08/07/20 06:00 97.7 85 18 122/77 (92) 99 Room Air Home Medications Current Medications Current Medications Medications (Trade) Dose Ordered Sig/Dina Route PRN Reason Start Time Stop Time Status Last Admin Dose Admin Acetaminophen (Tylenol Tab) 650 mg Q6HP PRN PO HEADACHE or DISCOMFORT 07/31/20 19:00 Al Hydrox/Mg Hydrox/Simethicone (Mylanta) 30 ml Q4HP PRN PO HEARTBURN/INDIGESTION 07/31/20 19:00 Aripiprazole (AbiLIFY) 5 mg QHS PO 08/05/20 21:00 Diphenhydramine HCl (Benadryl) 50 mg STAT STAT IM 08/05/20 14:30 08/05/20 14:33 DC 08/05/20 14:43 Diphenhydramine HCl (Benadryl) 100 mg STAT STAT IM 08/06/20 09:41 08/06/20 13:37 DC 08/06/20 09:57 Diphenhydramine HCl (Benadryl) 100 mg STAT STAT IM 08/06/20 11:08 08/06/20 11:11 DC 08/06/20 11:40 Diphenhydramine HCl (Benadryl) 100 mg STAT STAT IM 08/07/20 13:48 08/07/20 13:51 DC 08/07/20 13:59 Haloperidol (Haldol) 5 mg STAT STAT IM 08/05/20 14:30 08/05/20 14:33 DC 08/05/20 14:42 Haloperidol (Haldol) 10 mg STAT STAT IM 08/06/20 09:41 08/06/20 13:37 DC 08/06/20 09:58 Haloperidol (Haldol) 10 mg STAT STAT IM 08/06/20 11:08 08/06/20 11:11 DC 08/06/20 11:41 Haloperidol (Haldol) 10 mg STAT STAT IM 08/07/20 13:48 08/07/20 13:51 DC 08/07/20 13:59 Lorazepam (Ativan) 2 mg STAT STAT IM 08/05/20 14:30 08/05/20 14:33 DC 08/05/20 14:43 Lorazepam (Ativan) 2 mg STAT STAT IM 08/06/20 09:41 08/06/20 13:37 DC 08/06/20 09:57 Lorazepam (Ativan) 2 mg STAT STAT IM 08/06/20 11:08 08/06/20 11:11 DC 08/06/20 11:41 Lorazepam (Ativan) 2 mg STAT STAT IM 08/07/20 13:48 08/07/20 13:51 DC 08/07/20 13:59 Magnesium Hydroxide (Milk Of Magnesia) 30 ml DAILYPRN PRN PO CONSTIPATION 07/31/20 19:00 Olanzapine (ZyPREXA ZYDIS) 10 mg Q4HP PRN PO AGITATION/AMXIETY 07/31/20 19:00 Trazodone HCl (Desyrel) 50 mg QHSP PRN PO INSOMNIA 07/31/20 19:00 Scheduled Aripiprazole (Abilify) 5 Mg Tablet, 5 MG PO QHS for mood Scheduled PRN Nicotine Polacrilex (Nicotine Gum) 2 Mg Gum, 2 MG PO Q4HP PRN for NICOTINE WITHDRAWAL Allergies Coded Allergies: No Known Allergies (Unverified , 05/11/19) CONSUELO MENDEZ DO Aug 07, 2020 14:09
--- NOTE | 2020-08-07 17:19 | MHPR ---
General Date: Aug 07, 2020 Time: 17:34 Post-Restraint Evaluation THE OUTCOME OF THE RESTRAINT: Patient was able to gain ability to become more calm after speaking to this provider. EFFECTIVENESS OF THE RESTRAINT: Mechanical and/or chemical: Positive. ANY EVIDENCE THAT THE PATIENT WAS AFFECTED EMOTIONALLY: No. ANY NEED FOR COUNSELING/ASSISTANCE: No. CHANGES IN TREATMENT PLAN: We will continue to encourage patient's compliance with treatment RECOMMENDATIONS FOR FUTURE INCIDENTS: Earlier interventions tend to produce better responses. CONSUELO MENDEZ DO Aug 07, 2020 17:19
[2020-08-08 06:36] VITALS: BP 109/80
--- NOTE | 2020-08-08 14:28 | MHIPNPDOC ---
[facility] Progress Note Progress Note DATE OF SERVICE: 08/08/20 HISTORY: The patient is met with today, she is notably more engaged and friendly even, she reports that she is feeling better and describes that she doesn't r eally remember what brought her in and had felt quite threatened when she first came in, she hasn't been engaged in a paranoid or threatening ideation recently, she is more redirectable and generally more engaged. She retracted her court request, feeling that help was more warranted at this time. She is friendly and we have a fairly pleasant conversation where she reports that she's feeling much more like herself. She reports she has been taking the medications and wonders whether they really are helpful for her, she appears much more insightful. VITAL SIGNS: See below. NEW TEST RESULTS: None. CURRENT MEDICATIONS: See below. MENTAL STATUS EXAMINATION: General: [Well dressed with good hygiene] Speech: [Spontaneous and fluid] Thought processes: [Linear and logical] Thought content: [Future orientated] Abstract reasoning, and computation: [Intact] Description of associations: [Intact] Description of abnormal or psychotic thoughts:[Denies any suicidal or homicidal ideation. Denies any auditory or visual hallucinations. Does not appear to be responding to internal stimuli. Does not appear to be endorsing any bizarre or paranoid ideation.] Judgment: [Fair] Insight: [Fair] Orientation: [Alert and orientated 3] Recent and remote memory: [Intact] Attention span and concentration: [Intact] Fund of knowledge: [Adequate] Mood: "Feel like myself" Affect: [Euthymic with a full range] DIAGNOSES: 1. Substance-induced bipolar 2. Antisocial personality disorder. 3. Methamphetamine use disorder severe. ASSESSMENT: The medication for the patient's agitation appears to have calmed down what is likely a substance was bipolar, she usually resolves much more quickly, however she is much more insightful engaged in after a fairly pleasant conversation, she is open to waiting overnight and she is able to behave well and bills keep herself in control she'll be able to be discharged. She is amenable and she has a fairly good conversation with her nurse about how difficult the holidays are for her. She otherwise appears to be doing e xtraordinarily well this afternoon. Her agitation levels dropped quite a bit, she's even mildly open to the idea of medications from time to time. Although she is not taking it, I'm more concerned that this was related to a synthetic stimulant or otherwise undetectable agent as these are known to cause agitation and substance-induced bipolar much longer than other drugs. MANAGEMENT PLAN: Continue offering Abilify 5 mg daily. Vital Signs Vital Signs Date Time Temp Pulse Resp B/P (MAP) Pulse Ox O2 Delivery O2 Flow Rate FiO2 08/08/20 06:36 98.0 89 16 109/80 (90) 100 Room Air Current Medications Current Medications Medications (Trade) Dose Ordered Sig/Dina Route PRN Reason Start Time Stop Time Status Last Admin Dose Admin Acetaminophen (Tylenol Tab) 650 mg Q6HP PRN PO HEADACHE or DISCOMFORT 07/31/20 19:00 Al Hydrox/Mg Hydrox/Simethicone (Mylanta) 30 ml Q4HP PRN PO HEARTBURN/INDIGESTION 07/31/20 19:00 Aripiprazole (AbiLIFY) 5 mg QHS PO 08/05/20 21:00 Diphenhydramine HCl (Benadryl) 50 mg STAT STAT IM 08/05/20 14:30 08/05/20 14:33 DC 08/05/20 14:43 Diphenhydramine HCl (Benadryl) 100 mg STAT STAT IM 08/06/20 09:41 08/06/20 13:37 DC 08/06/20 09:57 Diphenhydramine HCl (Benadryl) 100 mg STAT STAT IM 08/06/20 11:08 08/06/20 11:11 DC 08/06/20 11:40 Diphenhydramine HCl (Benadryl) 100 mg STAT STAT IM 08/07/20 13:48 08/07/20 13:51 DC 08/07/20 13:59 Haloperidol (Haldol) 5 mg STAT STAT IM 08/05/20 14:30 08/05/20 14:33 DC 08/05/20 14:42 Haloperidol (Haldol) 10 mg STAT STAT IM 08/06/20 09:41 08/06/20 13:37 DC 08/06/20 09:58 Haloperidol (Haldol) 10 mg STAT STAT IM 08/06/20 11:08 08/06/20 11:11 DC 08/06/20 11:41 Haloperidol (Haldol) 10 mg STAT STAT IM 08/07/20 13:48 08/07/20 13:51 DC 08/07/20 13:59 Lorazepam (Ativan) 2 mg STAT STAT IM 08/05/20 14:30 08/05/20 14:33 DC 08/05/20 14:43 Lorazepam (Ativan) 2 mg STAT STAT IM 08/06/20 09:41 08/06/20 13:37 DC 08/06/20 09:57 Lorazepam (Ativan) 2 mg STAT STAT IM 08/06/20 11:08 08/06/20 11:11 DC 08/06/20 11:41 Lorazepam (Ativan) 2 mg STAT STAT IM 08/07/20 13:48 08/07/20 13:51 DC 08/07/20 13:59 Magnesium Hydroxide (Milk Of Magnesia) 30 ml DAILYPRN PRN PO CONSTIPATION 07/31/20 19:00 Olanzapine (ZyPREXA ZYDIS) 10 mg Q4HP PRN PO AGITATION/AMXIETY 07/31/20 19:00 Trazodone HCl (Desyrel) 50 mg QHSP PRN PO INSOMNIA 07/31/20 19:00 Allergies Coded Allergies: No Known Allergies (Unverified , 05/11/19) CONSUELO MENDEZ DO Aug 08, 2020 14:28
[2020-08-08 16:00] VITALS: BP 118/75
[2020-08-09 07:05] VITALS: BP 144/97
[2020-08-09] MEDS ORDERED: ABIL1TAB11 PO (10:45)
--- NOTE | 2020-08-09 12:16 | MHDSPDOC ---
[facility] Discharge Summary Discharge Summary DATE OF ADMISSION: Jul 31, 2020 at 20:02 DATE OF DISCHARGE:Aug 09, 2020 at 11:50 DISCHARGE DIAGNOSES: Substance-induced bipolar disorder PTSD chronic Antisocial personality disorder CONSULTANTS INVOLVED:[ None (basic hospitalist screening)] REASON FOR ADMISSION & TREATMENT AND PROGRESS ON THE UNIT : The patient was admitted to the inpatient mental health unit after overdosing on various things such as methamphetamine and heroin, she was admitted to the inpatient unit where she was notably bizarre after given several days of observation, she was attempted to be started on Abilify which she declined. She had multiple episodes of pain for increasing agitation and difficulty, however she began to stabilize more over time becoming more amenable to discussion. She then began to have more reasonable discussions and was able to engage in safety planning better, returning to her baseline level of irritation and several euthymic nature. She improved greatly and even consider taking her medications as an outpatient however she had rejected her court request to be discharged and demonstrated much improved insight thus after close to nearly 2 weeks of observation she improved well enough that she was deemed at baseline. DISCHARGE ASSESSMENT[improved] Legal status considerations: The patient at the time of discharge did not meet criteria for involuntary admission/extension due to having a baseline mental status exam, baseline ins ight into the situation, They are engaged in the discharge process, as well as being friendly and amenable in behavioral control and havent been engaging in any observed concerning behavior or ideation recently. They decline voluntary extension/admission at this time and must be discharged in good akanksha, as Im unable to make a case for holding the patient against their will. They may have historical risk factors of admissions and other interactions with psychiatry however, those are not modifiable from a clinical perspective. The patient will need to be discharged in good akanksha. MENTAL STATUS EXAMINATION ON DISCHARGE: General: [Well dressed with good hygiene] Speech: [Spontaneous and fluid] Thought processes: [Linear and logical] Thought content: [Future orientated] Abstract reasoning, and computation: [Intact] Description of associations: [Intact] Description of abnormal or psychotic thoughts:[Denies any suicidal or homicidal ideation. Denies any auditory or visual hallucinations. Does not appear to be responding to internal stimuli. Does not appear to be endorsing any bizarre or paranoid ideation.] Judgment: Baseline Insight: Baseline Orientation: [Alert and orientated 3] Recent and remote memory: [Intact] Attention span and concentration: [Intact] Fund of knowledge: [Adequate] Mood: ["okay"] Affect: [Euthymic with a full range] PLAN/FOLLOWUP ARRANGEMENTS: Follow up appointments made (PCP and MH in 5 days of D/C date) and safety plan completed. Safety Planning aspects completed prior to discharge [Medication supplies limited to 7 days with 4 refills to prevent accumulation to OD] [RN reviewed crisis hotline information and other aspects to empower patient to access care in interim before next appointment.] The amount of time spent in the coordination of care for this patient was approximately 30 minutes. Vital Signs/I&Os Vital Signs Date Time Temp Pulse Resp B/P (MAP) Pulse Ox O2 Delivery O2 Flow Rate FiO2 08/09/20 07:05 98.4 84 16 144/97 (113) 99 Room Air Medications Scheduled Aripiprazole (Abilify) 5 Mg Tablet, 5 MG PO QHS for mood for 7 Days, #7 Scheduled PRN Nicotine Polacrilex (Nicotine Gum) 2 Mg Gum, 2 MG PO Q4HP PRN for NICOTINE WITHDRAWAL for 5 Days, #30 Allergies Coded Allergies: No Known Allergies (Unverified , 05/11/19) CONSUELO MENDEZ DO Aug 09, 2020 12:16
== END 2020-08-09 11:50 | disposition home or self-care (01) | DRG 776 ==
LOC: M PSY 20:02
PROVIDERS: ADMIT Psychiatry & Neurology Addiction Medicine; ATTEND Psychiatry & Neurology Addiction Medicine
DX: F15.24 Other stimulant dependence with stimulant-induced mood disorder (principal); Z78.1 Physical restraint status; F12.10 Cannabis abuse, uncomplicated; F43.12 Post-traumatic stress disorder, chronic; Z65.2 Problems related to release from prison; F17.200 Nicotine dependence, unspecified, uncomplicated; E66.9 Obesity, unspecified; F60.2 Antisocial personality disorder; Z62.810 Personal history of physical and sexual abuse in childhood; Z91.14 Patient's other noncompliance with medication regimen

== ENCOUNTER 2020-12-11 08:53 | Emergency (ER) | payer MEDICAID, OTHER ==
[~2020-12-11] VITALS: Ht 149.9 cm; Wt 55.6 kg
[2020-12-11 08:54] VITALS: BP 140/85
== END 2020-12-11 12:14 | disposition left against medical advice (07) ==
LOC: M ED 08:53
DX: Z53.21 Procedure and treatment not carried out due to patient leaving prior to being seen by health care provider (principal)

== ENCOUNTER 2020-12-31 08:54 | Emergency (ER) | payer OTHER ==
[~2020-12-31] VITALS: Ht 149.9 cm; Wt 55.6 kg
[2020-12-31] MEDS ORDERED: HALOPERIDOL 5MG/ML VIAL (J1630 PER 1) IM ONE (09:25)
[2020-12-31] MEDS ORDERED: LORazepam 2 MG/ML VIAL IM ONE (09:25)
[2020-12-31] MEDS ORDERED: diphenhydrAMINE 50MG/ML VIAL (J1200) IM ONE (09:25)
[2020-12-31 11:00] LABS: HEMATOCRIT 34.1 % (36.0-47.0); HEMOGLOBIN 10.7 g/dl (12.0-15.5); MEAN CORPUSCULAR HEMOGLOBIN 23.9 pg (27.0-33.0); MEAN CORPUSCULAR HGB CONC 31.4 g/dl (32.0-36.5); MEAN CORPUSCULAR VOLUME 76.3 fl (80.0-96.0); PLATELET COUNT, AUTOMATED 422 10^3/uL (150-450); RED BLOOD COUNT 4.47 10^6/uL (4.00-5.40); WHITE BLOOD COUNT 9.9 10^3/uL (4.0-10.0)
[2020-12-31 11:33] LABS: HCG, SERUM QUALITATIVE NEGATIVE (NEGATIVE)
[2020-12-31 11:39] LABS: ACETAMINOPHEN LEVEL < 2.0 UG/ML (10.0-30.0); ALBUMIN 3.9 GM/DL (3.2-5.2); ALT/SGPT 20 U/L (12-78); BILIRUBIN,DIRECT 0.1 MG/DL (0.0-0.2); BILIRUBIN,TOTAL 0.4 MG/DL (0.2-1.0); BLOOD UREA NITROGEN 9 MG/DL (7-18); CALCIUM LEVEL 9.1 MG/DL (8.5-10.1); CARBON DIOXIDE LEVEL 25 MEQ/L (21-32); CHLORIDE LEVEL 109 MEQ/L (98-107); CREATININE FOR GFR 0.72 MG/DL (0.55-1.30); ETHYL ALCOHOL (ETHANOL) < 0.003 % (0.000-0.010); GLOMERULAR FILTRATION RATE > 60.0 (>60); GLUCOSE, FASTING 72 MG/DL (70-100); POTASSIUM SERUM 3.9 MEQ/L (3.5-5.1); SALICYLATE LEVEL 2.4 MG/DL (5.0-30.0); SODIUM LEVEL 140 MEQ/L (136-145); TOTAL PROTEIN 7.2 GM/DL (6.4-8.2)
[2020-12-31 13:04] LABS: AMPHETAMINES LEVEL URINE POSITIVE (NEGATIVE); BARBITURATES URINE NEGATIVE (NEGATIVE); BENZODIAZEPINES URINE NEGATIVE (NEGATIVE); CANNABINOIDS URINE POSITIVE (NEGATIVE); COCAINE METABOLITE URINE NEGATIVE (NEGATIVE); METHADONE URINE NEGATIVE (NEGATIVE); OPIATES URINE NEGATIVE (NEGATIVE); PHENCYCLIDINE URINE NEGATIVE (NEGATIVE)
--- NOTE | 2021-01-01 07:50 | ECGEPIP ---
[facility] - ED Test Date: 2021-01-01 Pat Name: LAURI BUCK Department: Room: - Gender: Female Open Developer Operator: PAOLA : 1985 Requested By: Grady Valadez Order Number: [id number] Reading MD: Grady Velazquez Measurements Intervals [place] Rate: 78 P: 52 DC: 116 QRS: 43 QRSD: 78 T: -43 QT: 402 QTc: 458 Interpretive Statements Normal sinus rhythm with sinus arrhythmia INCOMPLETE RIGHT BUNDLE BRANCH BLOCK NONSPECIFIC T WAVE ABNORMALITY(S) Electronically Signed on 01-01-2021 7:50:08 EDT by Grady Velazquez
[2021-01-01] MEDS ORDERED: LORazepam 2 MG/ML VIAL IM STA ×2 (08:49→09:02)
[2021-01-01 10:29] VITALS: BP 136/60
== END 2021-01-01 10:32 ==
LOC: M ED 08:54
DX: F25.0 Schizoaffective disorder, bipolar type (principal); F12.10 Cannabis abuse, uncomplicated; F15.10 Other stimulant abuse, uncomplicated
CPT/HCPCS: 80048; 80076; 80143; 80307; 82077; 84443; 84703; 85027; 87798; 93005; 96372; 99285; J1200; J1630; J2060

== ENCOUNTER 2021-01-23 12:54 | Inpatient (IN) | payer MEDICAID, OTHER ==
[~2021-01-23] VITALS: Ht 149.9 cm; Wt 56.0 kg
[2021-01-23] MEDS ORDERED: LORazepam 2 MG/ML VIAL IM ONE (14:10)
[2021-01-23] MEDS ORDERED: diphenhydrAMINE 50MG/ML VIAL (J1200) IM ONE (14:10)
[2021-01-23] MEDS ORDERED: HALOPERIDOL 5MG/ML VIAL (J1630 PER 1) IM ONE (14:10)
[2021-01-23 15:57] LABS: HEMATOCRIT 30.5 % (36.0-47.0); HEMOGLOBIN 9.4 g/dl (12.0-15.5); MEAN CORPUSCULAR HEMOGLOBIN 24.7 pg (27.0-33.0); MEAN CORPUSCULAR HGB CONC 30.8 g/dl (32.0-36.5); MEAN CORPUSCULAR VOLUME 80.1 fl (80.0-96.0); PLATELET COUNT, AUTOMATED 367 10^3/uL (150-450); RED BLOOD COUNT 3.81 10^6/uL (4.00-5.40); WHITE BLOOD COUNT 10.9 10^3/uL (4.0-10.0)
[2021-01-23 16:26] LABS: ACETAMINOPHEN LEVEL < 2.0 UG/ML (10.0-30.0); ALBUMIN 3.6 GM/DL (3.2-5.2); ALT/SGPT 31 U/L (12-78); BILIRUBIN,DIRECT 0.1 MG/DL (0.0-0.2); BILIRUBIN,TOTAL 0.3 MG/DL (0.2-1.0); BLOOD UREA NITROGEN 9 MG/DL (7-18); CALCIUM LEVEL 8.7 MG/DL (8.5-10.1); CARBON DIOXIDE LEVEL 26 MEQ/L (21-32); CHLORIDE LEVEL 108 MEQ/L (98-107); CREATININE FOR GFR 0.66 MG/DL (0.55-1.30); ETHYL ALCOHOL (ETHANOL) < 0.003 % (0.000-0.010); GLOMERULAR FILTRATION RATE > 60.0 (>60); GLUCOSE, FASTING 77 MG/DL (70-100); POTASSIUM SERUM 3.6 MEQ/L (3.5-5.1); SALICYLATE LEVEL < 1.7 MG/DL (5.0-30.0); SODIUM LEVEL 140 MEQ/L (136-145); THYROID STIMULATING HORMONE 0.468 uIU/ML (0.358-3.740); TOTAL PROTEIN 6.7 GM/DL (6.4-8.2)
[2021-01-23 16:49] LABS: HCG, SERUM QUALITATIVE NEGATIVE (NEGATIVE)
[2021-01-24 09:47] LABS: RSV AMPLIFICATION NEGATIVE (NEGATIVE)
[2021-01-24] MEDS ORDERED: BENZ-52 PO (12:00)
[2021-01-24] MEDS ORDERED: FERR325T3 PO (12:00)
[2021-01-24] MEDS ORDERED: ACETAMINOPHEN TAB 650MG DOSE (2X325MG) PO PRN (15:05)
[2021-01-24] MEDS ORDERED: MOM 30ML SUSPENSION UDC PO PRN (15:05)
[2021-01-24] MEDS ORDERED: MAALOX 30 ML SUSP *UDC PO PRN (15:05)
[2021-01-24] MEDS ORDERED: haloperidoL 5 MG TAB PO PRN (15:05)
[2021-01-24] MEDS ORDERED: LORazepam 1 MG TAB PO PRN (15:05)
[2021-01-24] MEDS: BENZTROPINE 1 MG TAB PO SCH (20:15)
[2021-01-25 06:50] VITALS: BP 120/72
[2021-01-25] MEDS: FERROUS SULFATE 325MG TAB PO SCH (08:21)
[2021-01-25] MEDS: BENZTROPINE 1 MG TAB PO SCH ×2 (08:21→21:00)
--- NOTE | 2021-01-25 14:53 | HPEPDOC ---
General Date of Admission Jan 24, 2021 at 15:01 Date of Service: Jan 25, 2021 Chief Complaint The patient is a 35-year-old female admitted with a reason for visit of Uspecified Psychosis. Source: Patient Exam Limitations: No limitations, Clinical conditions History of Present Illness Patient is 35 years old female with history of bipolar disorder, depression, polysubstance abuse, PTSD presented hospital with acute psychosis. Patient reluctant to provide information about her admission. The patient clearly had a history of becoming quite paranoid and depressed at times. During my interview patient denied fever, chills, nausea, chest pain, palpitations, diarrhea or dysuria. Home Medications Scheduled Benztropine Mesylate (Benztropine Mesylate) 1 Mg Tablet, 1 MG PO Q12H, (Reported) Ferrous Sulfate (Ferrous Sulfate) 325 Mg Tablet.dr, 325 MG PO DAILY, (Reported) Allergies Coded Allergies: No Known Allergies (Unverified , 05/11/19) Past Medical History Medical History 1. Bipolar disorder, type 1, with possible psychotic symptoms. 2. Stimulant use disorder. 3. Cannabis use disorder. Social History * Smoker: current smoker Alcohol: occationally Drugs: marijuana A-FIB/CHADSVASC A-FIB History Current/History of A-Fib/PAF?: No Current PO Anticoag Therapy: No Review of Systems Constitutional: Denies: Chills Eyes: Denies: Pain ENT: Denies: Head Aches Skin: Denies: Rash, Lesions Pulmonary: Denies: Dyspnea Cardiovascular: Denies: Chest Pain Gastrointestinal: Denies: Nausea, Vomiting Genitourinary: Denies: Dysuria Hematologic: Denies: Bruising, Bleeding Excessively Endocrine: Denies: Polydipsia Musculoskeletal: Denies: Neck Pain Neurological: Denies: Weakness Psych: Reports: Mood Normal Physical Examination General Exam: Positive: Alert, Cooperative Eye Exam: Positive: PERRLA ENT Exam: Positive: Atraumatic Neck Exam: Positive: Supple; Negative: JVD Chest Exam: Positive: Clear to auscultation Heart Exam: Positive: Rate Normal Telemetry: Positive: No significant arrhythmia Abdomen Exam: Positive: Normal bowel sounds Extremity Exam: Negative: Clubbing Skin Exam: Positive: Nl turgor and temperature Neuro Exam: Positive: Normal Gait Psych Exam: Positive: Oriented x 3 Vital Signs Vital Signs Date Time Temp Pulse Resp B/P (MAP) Pulse Ox O2 Delivery O2 Flow Rate FiO2 01/25/21 06:50 97.7 87 20 120/72 (88) 98 Room Air Assessment/Plan Patient is 35 years old female with history of bipolar disorder, depression, polysubstance abuse, PTSD presented hospital with acute psychosis. Patient reluctant to provide information about her admission. The patient clearly had a history of becoming quite paranoid and depressed at times. During my interview patient denied fever, chills, nausea, chest pain, palpitations, diarrhea or dysuria. Problems (1) Acute psychosis Status: Acute Problem Text: Deferred treatment to psych team Plan / VTE VTE Prophylaxis Ordered?: No VTE Exclusion Mechanical Proph: Low Risk for VTE JOSE SHARP DO Jan 25, 2021 14:53
[2021-01-25 17:32] VITALS: BP 141/70
[2021-01-25] MEDS: risperiDONE 2 MG TAB PO SCH (21:00)
[2021-01-25] MEDS: DIVALPROEX 250 MG TAB PO SCH (21:00)
[2021-01-26 06:00] VITALS: BP 141/80
[2021-01-26] MEDS: FERROUS SULFATE 325MG TAB PO SCH (08:23)
[2021-01-26] MEDS: BENZTROPINE 1 MG TAB PO SCH ×2 (08:24→20:16)
[2021-01-26] MEDS: DIVALPROEX 250 MG TAB PO SCH ×2 (08:24→20:16)
[2021-01-26] MEDS: risperiDONE 1 MG TAB PO SCH (08:24)
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
[2021-01-26 18:00] VITALS: BP 122/67
[2021-01-26] MEDS: risperiDONE 2 MG TAB PO SCH (20:16)
[2021-01-27] MEDS ORDERED: RISP-9 PO (09:47)
[2021-01-27] MEDS ORDERED: DEPA250T32 PO (09:47)
[2021-01-27] MEDS ORDERED: RISP-8 PO (09:47)
[2021-01-27] MEDS: BENZTROPINE 1 MG TAB PO SCH (10:17)
[2021-01-27] MEDS: FERROUS SULFATE 325MG TAB PO SCH (10:17)
[2021-01-27] MEDS: risperiDONE 1 MG TAB PO SCH (10:17)
[2021-01-27] MEDS: DIVALPROEX 250 MG TAB PO SCH (10:50)
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
[2021-01-27 11:39] LABS: ALBUMIN 3.4 GM/DL (3.2-5.2); ALT/SGPT 26 U/L (12-78); BILIRUBIN,TOTAL 0.2 MG/DL (0.2-1.0); BLOOD UREA NITROGEN 13 MG/DL (7-18); CALCIUM LEVEL 9.5 MG/DL (8.5-10.1); CARBON DIOXIDE LEVEL 28 MEQ/L (21-32); CHLORIDE LEVEL 105 MEQ/L (98-107); GLOMERULAR FILTRATION RATE > 60.0 (>60); GLUCOSE, FASTING 83 MG/DL (70-100); POTASSIUM SERUM 3.9 MEQ/L (3.5-5.1); SODIUM LEVEL 138 MEQ/L (136-145); TOTAL PROTEIN 7.4 GM/DL (6.4-8.2)
== END 2021-01-27 12:20 | disposition home or self-care (01) | DRG 753 ==
LOC: M ED 12:54 → M ED INP 01-24 15:01 → M PSY 01-24 18:19
PROVIDERS: ADMIT Psychiatry & Neurology Psychiatry; ATTEND Psychiatry & Neurology Psychiatry
DX: F31.5 Bipolar disorder, current episode depressed, severe, with psychotic features (principal); R45.850 Homicidal ideations; Z79.899 Other long term (current) drug therapy; F43.10 Post-traumatic stress disorder, unspecified; F17.200 Nicotine dependence, unspecified, uncomplicated; F12.90 Cannabis use, unspecified, uncomplicated; F15.90 Other stimulant use, unspecified, uncomplicated

== ENCOUNTER 2021-02-12 21:16 | Emergency (ER) | payer MEDICAID, OTHER ==
[~2021-02-12] VITALS: Ht 152.4 cm; Wt 54.5 kg
[~2021-02-12 21:16] MED LIST changes: +DEPA250T32 PO; +FERR325T3 PO; +RISP-8 PO; +RISP-9 PO
[2021-02-12] MEDS ORDERED: HALOPERIDOL 5MG/ML VIAL (J1630 PER 1) As Ordered ONE (21:32)
[2021-02-12] MEDS ORDERED: LORazepam 2 MG/ML VIAL As Ordered ONE (21:33)
[2021-02-12] MEDS ORDERED: diphenhydrAMINE 50MG/ML VIAL (J1200) As Ordered ONE (21:33)
[2021-02-12] MEDS ORDERED: HALOPERIDOL 5MG/ML VIAL (J1630 PER 1) IM ONE (21:35)
[2021-02-12] MEDS ORDERED: LORazepam 2 MG/ML VIAL IM ONE (21:35)
[2021-02-12] MEDS ORDERED: diphenhydrAMINE 50MG/ML VIAL (J1200) IM ONE (21:35)
[2021-02-12 22:41] LABS: HEMATOCRIT 31.8 % (36.0-47.0); HEMOGLOBIN 9.8 g/dl (12.0-15.5); MEAN CORPUSCULAR HEMOGLOBIN 24.5 pg (27.0-33.0); MEAN CORPUSCULAR HGB CONC 30.8 g/dl (32.0-36.5); MEAN CORPUSCULAR VOLUME 79.5 fl (80.0-96.0); PLATELET COUNT, AUTOMATED 343 10^3/uL (150-450); WHITE BLOOD COUNT 7.9 10^3/uL (4.0-10.0)
[2021-02-12 23:06] LABS: HCG, SERUM QUALITATIVE NEGATIVE (NEGATIVE)
[2021-02-12 23:25] LABS: ACETAMINOPHEN LEVEL < 2.0 UG/ML (10.0-30.0); ALBUMIN 3.8 GM/DL (3.2-5.2); ALT/SGPT 24 U/L (12-78); BILIRUBIN,DIRECT 0.1 MG/DL (0.0-0.2); BILIRUBIN,TOTAL 0.3 MG/DL (0.2-1.0); BLOOD UREA NITROGEN 7 MG/DL (7-18); CALCIUM LEVEL 8.4 MG/DL (8.5-10.1); CARBON DIOXIDE LEVEL 23 MEQ/L (21-32); CHLORIDE LEVEL 105 MEQ/L (98-107); CREATININE FOR GFR 0.81 MG/DL (0.55-1.30); ETHYL ALCOHOL (ETHANOL) < 0.003 % (0.000-0.010); GLOMERULAR FILTRATION RATE > 60.0 (>60); GLUCOSE, FASTING 88 MG/DL (70-100); POTASSIUM SERUM 3.2 MEQ/L (3.5-5.1); SALICYLATE LEVEL 2.1 MG/DL (5.0-30.0); SODIUM LEVEL 139 MEQ/L (136-145); THYROID STIMULATING HORMONE 0.512 uIU/ML (0.358-3.740)
[2021-02-13] MEDS ORDERED: OLANZapine ORAL DISINTEGRATING TAB 5MG PO ONE (01:50)
[2021-02-13] MEDS ORDERED: POTASSIUM CHLORIDE 10 MEQ SR TABLET PO ONE (06:00)
[2021-02-13 19:37] VITALS: BP 123/69
== END 2021-02-13 19:39 | disposition home or self-care (01) ==
LOC: M ED 21:16
DX: 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, 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, unspecified (principal); F31.9 Bipolar disorder, unspecified; F17.200 Nicotine dependence, unspecified, uncomplicated; Z79.899 Other long term (current) drug therapy
CPT/HCPCS: 80048; 80076; 80143; 82077; 84443; 84703; 85027; 96374; 96375; 99285; J1200; J1630; J2060

== ENCOUNTER 2021-02-27 18:55 | Inpatient (IN) | payer MEDICAID, OTHER ==
[~2021-02-27] VITALS: Ht 152.4 cm; Wt 54.5 kg
[2021-02-27 20:08] LABS: HEMATOCRIT 36.3 % (36.0-47.0); HEMOGLOBIN 11.4 g/dl (12.0-15.5); MEAN CORPUSCULAR HGB CONC 31.4 g/dl (32.0-36.5); MEAN CORPUSCULAR VOLUME 79.6 fl (80.0-96.0); PLATELET COUNT, AUTOMATED 464 10^3/uL (150-450); RED BLOOD COUNT 4.56 10^6/uL (4.00-5.40); WHITE BLOOD COUNT 9.3 10^3/uL (4.0-10.0)
[2021-02-27 20:38] LABS: HCG, SERUM QUALITATIVE NEGATIVE (NEGATIVE)
[2021-02-27 20:59] LABS: ACETAMINOPHEN LEVEL < 2.0 UG/ML (10.0-30.0); ALBUMIN 4.5 GM/DL (3.2-5.2); ALT/SGPT 22 U/L (12-78); BILIRUBIN,DIRECT 0.2 MG/DL (0.0-0.2); BILIRUBIN,TOTAL 0.6 MG/DL (0.2-1.0); BLOOD UREA NITROGEN 8 MG/DL (7-18); CALCIUM LEVEL 9.4 MG/DL (8.5-10.1); CARBON DIOXIDE LEVEL 25 MEQ/L (21-32); CHLORIDE LEVEL 106 MEQ/L (98-107); CREATININE FOR GFR 0.96 MG/DL (0.55-1.30); ETHYL ALCOHOL (ETHANOL) < 0.003 % (0.000-0.010); GLOMERULAR FILTRATION RATE > 60.0 (>60); GLUCOSE, FASTING 64 MG/DL (70-100); POTASSIUM SERUM 3.8 MEQ/L (3.5-5.1); SALICYLATE LEVEL 2.8 MG/DL (5.0-30.0); SODIUM LEVEL 141 MEQ/L (136-145); TOTAL PROTEIN 8.5 GM/DL (6.4-8.2); VALPROIC ACID (DEPAKOTE) < 3.0 UG/ML (50.0-100.0)
[2021-02-27 21:03] LABS: AMPHETAMINES LEVEL URINE POSITIVE (NEGATIVE); BARBITURATES URINE NEGATIVE (NEGATIVE); BENZODIAZEPINES URINE NEGATIVE (NEGATIVE); CANNABINOIDS URINE POSITIVE (NEGATIVE); COCAINE METABOLITE URINE NEGATIVE (NEGATIVE); METHADONE URINE NEGATIVE (NEGATIVE); OPIATES URINE NEGATIVE (NEGATIVE); PHENCYCLIDINE URINE NEGATIVE (NEGATIVE)
[2021-02-27] MEDS ORDERED: BENZTROPINE 1 MG TAB PO ONE (21:05)
[2021-02-27] MEDS ORDERED: DIVALPROEX 250 MG TAB PO ONE (21:05)
[2021-02-27] MEDS ORDERED: risperiDONE 2 MG TAB PO ONE (21:05)
[2021-02-28] MEDS ORDERED: risperiDONE 1 MG TAB PO SCH (09:00)
[2021-02-28] MEDS ORDERED: DIVALPROEX 250 MG TAB PO SCH (09:00)
[2021-02-28] MEDS ORDERED: FERROUS SULFATE 325MG TAB PO SCH (09:00)
[2021-02-28] MEDS ORDERED: BENZTROPINE 1 MG TAB PO SCH (09:00)
[2021-02-28] MEDS ORDERED: HOME MED LIST COMPLETE! XX SCH (09:10)
[2021-02-28 13:10] LABS: RSV AMPLIFICATION NEGATIVE (NEGATIVE)
[2021-02-28] MEDS ORDERED: traZODone 50 MG TAB PO PRN (15:20)
[2021-02-28] MEDS ORDERED: ACETAMINOPHEN TAB 650MG DOSE (2X325MG) PO PRN (15:20)
[2021-02-28] MEDS ORDERED: MOM 30ML SUSPENSION UDC PO PRN (15:20)
[2021-02-28] MEDS ORDERED: MAALOX 30 ML SUSP *UDC PO PRN (15:20)
[2021-02-28] MEDS: NICOTINE 21MG/24HR 1 EA TRANSDERMAL TD SCH (16:00)
[2021-02-28] MEDS: BENZTROPINE 1 MG TAB PO SCH ×2 (21:00→21:22)
[2021-03-01 05:58] VITALS: BP 125/73
[2021-03-01] MEDS: NICOTINE 21MG/24HR 1 EA TRANSDERMAL TD SCH (09:00)
[2021-03-01] MEDS: BENZTROPINE 1 MG TAB PO SCH ×2 (09:00→20:55)
[2021-03-01] MEDS: FERROUS SULFATE 325MG TAB PO SCH (09:00)
[2021-03-01] MEDS ORDERED: LORazepam 1 MG TAB PO PRN (10:45)
[2021-03-01] MEDS: DIVALPROEX 250MG *ER* TAB PO SCH ×2 (12:52→20:55)
[2021-03-01] MEDS: risperiDONE 2 MG TAB PO SCH (20:55)
[2021-03-02 05:44] VITALS: BP 109/59
[2021-03-02] MEDS: NICOTINE 21MG/24HR 1 EA TRANSDERMAL TD SCH (09:00)
[2021-03-02] MEDS: BENZTROPINE 1 MG TAB PO SCH ×2 (09:52→21:04)
[2021-03-02] MEDS: FERROUS SULFATE 325MG TAB PO SCH (09:52)
[2021-03-02] MEDS: DIVALPROEX 250MG *ER* TAB PO SCH ×2 (09:52→21:04)
[2021-03-02 18:37] VITALS: BP 119/71
[2021-03-02] MEDS: risperiDONE 2 MG TAB PO SCH (21:04)
[2021-03-03 06:11] VITALS: BP 114/74
[2021-03-03] MEDS: BENZTROPINE 1 MG TAB PO SCH (08:15)
[2021-03-03] MEDS: FERROUS SULFATE 325MG TAB PO SCH (08:15)
[2021-03-03] MEDS: DIVALPROEX 250MG *ER* TAB PO SCH (08:16)
[2021-03-03] MEDS ORDERED: RISP-9 PO (08:54)
[2021-03-03] MEDS ORDERED: DEPA250T2 PO (08:54)
[2021-04-21] MEDS ORDERED: HALO5TAB33 PO (10:26)
[2021-05-06] MEDS ORDERED: HALO5TAB33 PO (19:25)
== END 2021-03-03 10:22 | disposition home or self-care (01) | DRG 750 ==
LOC: M ED 18:55 → M ED INP 02-28 15:18 → M ED 02-28 17:09 → M PSY 02-28 17:13
PROVIDERS: ADMIT Psychiatry & Neurology Psychiatry; ATTEND Psychiatry & Neurology Psychiatry
DX: F25.9 Schizoaffective disorder, unspecified (principal); F15.159 Other stimulant abuse with stimulant-induced psychotic disorder, unspecified; F17.210 Nicotine dependence, cigarettes, uncomplicated; Z20.822 Contact with and (suspected) exposure to COVID-19; Z79.899 Other long term (current) drug therapy; Z91.19 Patient's noncompliance with other medical treatment and regimen; F43.10 Post-traumatic stress disorder, unspecified; F12.10 Cannabis abuse, uncomplicated

== ENCOUNTER 2021-04-13 15:59 | Inpatient (IN) | payer MEDICAID, OTHER ==
[~2021-04-13] VITALS: Ht 152.4 cm; Wt 51.1 kg
[~2021-04-13 15:59] MED LIST changes: +DEPA250T2 PO
[2021-04-13] MEDS ORDERED: OLANZapine INTRAMUSCULAR 10MG VIAL IM ONE (16:05)
[2021-04-13] MEDS ORDERED: LORazepam 2 MG/ML VIAL IM ONE (16:05)
[2021-04-13] MEDS ORDERED: LORazepam 2 MG/ML VIAL IM STA (17:11)
[2021-04-13] MEDS: LORazepam 2 MG/ML VIAL IV PRN ×4 (17:40→18:37)
[2021-04-13] MEDS ORDERED: DIVA250T7 PO (23:21)
[2021-04-13] MEDS ORDERED: RISP-9 PO (23:21)
[2021-04-13] MEDS ORDERED: med rec comment (23:22)
[2021-04-13] MEDS ORDERED: HOME MED LIST COMPLETE! XX SCH (23:25)
[2021-04-14] MEDS ORDERED: diphenhydrAMINE 25MG CAP PO PRN (17:50)
[2021-04-14] MEDS ORDERED: ACETAMINOPHEN TAB 650MG DOSE (2X325MG) PO PRN (17:50)
[2021-04-14] MEDS ORDERED: LORazepam 1 MG TAB PO PRN (17:50)
[2021-04-14] MEDS ORDERED: MAALOX 30 ML SUSP *UDC PO PRN (17:50)
[2021-04-14] MEDS ORDERED: MOM 30ML SUSPENSION UDC PO PRN (17:50)
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
[2021-04-14 19:35] LABS: HEMATOCRIT 39.6 % (36.0-47.0); HEMOGLOBIN 12.1 g/dl (12.0-15.5); MEAN CORPUSCULAR HEMOGLOBIN 24.7 pg (27.0-33.0); MEAN CORPUSCULAR HGB CONC 30.6 g/dl (32.0-36.5); PLATELET COUNT, AUTOMATED 435 10^3/uL (150-450); RED BLOOD COUNT 4.89 10^6/uL (4.00-5.40); WHITE BLOOD COUNT 8.6 10^3/uL (4.0-10.0)
[2021-04-14 20:06] LABS: HCG, SERUM QUALITATIVE NEGATIVE (NEGATIVE)
[2021-04-14 20:09] LABS: ACETAMINOPHEN LEVEL < 2.0 UG/ML (10.0-30.0); ALBUMIN 3.6 GM/DL (3.2-5.2); ALT/SGPT 27 U/L (12-78); BILIRUBIN,DIRECT 0.2 MG/DL (0.0-0.2); BILIRUBIN,TOTAL 0.4 MG/DL (0.2-1.0); BLOOD UREA NITROGEN 18 MG/DL (7-18); CALCIUM LEVEL 8.6 MG/DL (8.5-10.1); CARBON DIOXIDE LEVEL 28 MEQ/L (21-32); CHLORIDE LEVEL 106 MEQ/L (98-107); CREATININE FOR GFR 1.09 MG/DL (0.55-1.30); ETHYL ALCOHOL (ETHANOL) < 0.003 % (0.000-0.010); GLOMERULAR FILTRATION RATE > 60.0 (>60); GLUCOSE, FASTING 161 MG/DL (70-100); POTASSIUM SERUM 3.6 MEQ/L (3.5-5.1); SODIUM LEVEL 140 MEQ/L (136-145); THYROID STIMULATING HORMONE 0.312 uIU/ML (0.358-3.740); TOTAL PROTEIN 7.3 GM/DL (6.4-8.2)
[2021-04-14 20:16] LABS: RSV AMPLIFICATION NEGATIVE (NEGATIVE)
[2021-04-15 06:48] VITALS: BP 159/98
[2021-04-15] MEDS: FOLIC ACID 1 MG TAB PO SCH (09:00)
[2021-04-15] MEDS: MULTIVITAMINS/MINERALS THERAP 1 TAB PO SCH (09:00)
[2021-04-15] MEDS ORDERED: LORazepam 2 MG TAB PO PRN (11:20)
--- NOTE | 2021-04-15 11:28 | HPE ---
HOSPITALIST GENERATED HISTORY AND PHYSICAL DATE OF ADMISSION: 04/14/2021 HISTORY OF PRESENT ILLNESS: This is a hospitalist-generated history and physical on an inpatient Mental Health Unit patient, Charlotte Santana. She was entirely not cooperative with the history and physical and refused pretty much any meaningful exchange. MEDICAL HISTORY: Review of her history shows she is recurrently admitted for psychosis. She has a history of bipolar disorder, polysubstance abuse, depression, post traumatic stress disorder, history of stimulant and cannabis, and iron deficiency. SOCIAL HISTORY: She smokes both tobacco and marijuana. ALLERGIES: None known. REVIEW OF SYSTEMS: Not obtainable. PHYSICAL EXAMINATION: She refused any kind of contact or physical exam. Her vitals were reviewed. She is alert and conversant. Her speech was fluent. She moved arms and legs with equal strength. The patient looked grossly stable and within the limits imposed by her refusal for history and exam, she does not look like she needs any medical intervention at this point.
[2021-04-15] MEDS: THIAMINE 100 MG TAB PO SCH ×2 (11:40→20:46)
[2021-04-15] MEDS: DIVALPROEX 250 MG TAB PO SCH ×2 (16:00→20:46)
[2021-04-15] MEDS: risperiDONE 2 MG TAB PO SCH (20:46)
--- NOTE | 2021-04-15 20:57 | MHHPEPDOC ---
General Date Of Admission: Apr 15, 2021 Legal Status: 9.39 Chief Complaint "Get the hell out, let me , who cares" History of Present Illness HISTORY OF THE PRESENT ILLNESS: Patient is a 35 -year-old , female, with a past psych history of substance induced psychosis, who called police due to concerns someone impersonating her and ruining her life, also expressed SI per PSA reports. She is well known to service and was last admitted 28 February 2021. Was poorly cooperative to interview so information gathered form chart review. Upon entering room, was lying in bed and having a conversation with herself, making bizarre barking noises. Upon questioning yells "get the fk out, I'm not taking meds, let me , who cares". Multiple approaches were unsuccessful. Toxicology not fully obtained, but has history of methamphetamine and cannabis use. She presents similarly on this occasion to that of early February 2021 per chart review. Unable to obtain full assessment due to non-cooperative to interview, has prn medications for agitation. Psychiatric Review of Systems Mary (4 or more days of): irritable/elevated mood Psychosis: paranoia, disorganization Past Psychiatric History Previous Psychiatric Diagnosis: Bipolar disorder, schizoaffective disorder, amphetamine use disorder Previous Psychiatric Admissions: numerous Suicide Attempts: none recent per chart review Psychiatric Follow-up: none Psychiatric medications: hx risperdal, depakote Past Medical History Medical Problems denies Head Injury: No Seizures: No Hospitalizations: No Surgeries: No Family Medical/Psychiatric HX Medical Problems noncontributory per chart review Psychiatric Disorders: No Addiction: Yes (father alcohol abuse) Suicide Attemps/Completions: No Addiction History amphetamines, methamphetamines, other (cannabis) Social History Childhood: [place] Abuse/Trauma: yes, unclear per chart review Current Living Situation: alone Education: grade 12 Employment: unemployed Social Support: few Legal: unknown Marital: unknown Mental Status Examination General Appearance: unkempt, hospital scubs/clothing Build: average Demeanor: hostile, mistrustful, preoccupied Eye Contact: avoidant Activity: agitated, hostile Behavior: uncooperative, resistant, agitated, aggressive Speech: rapid, pressured, spontaneous Mood: angry, irritable Affect: inappropriate, hostile, disorganized Thought Process: incoherent, racing Thought Content (Delusions): persecutory, bizarre, nihilistic, paranoia, other (suicidal statements) Thought Content (Other): guarded, appears paranoid Thought Content (Aggressive): aggressive (assess) Perception (Hallucinations): none reported Perception (Other): none reported Cognition (Impairment of): unable to assess Cognition(Intelligence Est.): average Oriented: Awake, Alert Insight: poor Judgment: Poor Diagnoses Substance induced psychotic disorder Schizoaffective disorder Methamphetamine use disorder Cannabis use disorder A-FIB/CHADSVASC A-FIB History Current/History of A-Fib/PAF?: No Current PO Anticoag Therapy: No Age/Risk Factor Scoring CHADSVASC: CHADSVASC Response (Comments) Value Age Risk Factor Age < 65 years old 0 Gender Risk Factor Female 1 Hx of CHF No 0 Hx of HTN No 0 Hx of Stroke/TIA/or VTE No 0 Hx of Diabetes No 0 Hx of Vascular Disease No 0 Total 1 Treatment Treatment ordered: NONE Reason Anticoagulant not given: Not indicated/[id number] Assessment Patient is a 35 -year-old , female, with a past psych history of substance induced psychosis, who called police due to concerns someone impersonating her and ruining her life, also expressed SI per PSA reports. She is well known to ur service and was last admitted 28 February 2021. Was poorly cooperative to interview so information gathered form chart review. Plan to restart home meds Initial Treatment Plan 1. Patient was admitted on a [9.39] status. 2. Complete history was obtained. 3. With patients permission, family will be contacted and database will be expanded. 4. Patients medication regimen will be reviewed and changed accordingly. 5. Patient will be provided with protected environment. 6. Patient will be treated with individual, group, and milieu therapies. 7. Patient will receive supportive psych-education. 8. Discharge planning will commence immediately. 9. Outpatient follow-up treatment will be strongly recommended. 10. The initial treatment plan will focus initially on: * Depression. * Risk for suicide. ESTIMATED LENGTH OF STAY: - DAYS. TIME SPENT COUNSELING AND COORDINATING INITIAL CARE: minutes. Tobacco Cessation Screen If Patient is a Smoker unknown Tobacco Cessation Tx Ordered?: Yes Pt Refused Vital Signs Vital Signs Date Time Temp Pulse Resp B/P (MAP) Pulse Ox O2 Delivery O2 Flow Rate FiO2 04/15/21 06:48 99.7 84 20 159/98 (118) 96 Room Air Medications Scheduled Benztropine Mesylate (Benztropine Mesylate) 1 Mg Tablet, 1 MG PO Q12H, (Reported) Divalproex Sodium (Divalproex Sodium ER) 250 Mg Tab.er.24h, 250 MG PO BID, (Reported) Ferrous Sulfate (Ferrous Sulfate) 325 Mg Tablet.dr, 325 MG PO DAILY, (Reported) Risperidone (Risperidone) 2 Mg Tablet, 2 MG PO QHS, (Reported) Miscellaneous Medications [med rec comment] , (Reported) used last discharge for february 2021 Allergies Coded Allergies: No Known Allergies (Unverified , 02/27/21) HARMAN HOLMAN MD Apr 15, 2021 20:57
[2021-04-16] MEDS: MULTIVITAMINS/MINERALS THERAP 1 TAB PO SCH (09:00)
[2021-04-16] MEDS: DIVALPROEX 250 MG TAB PO SCH ×3 (09:00→21:00)
[2021-04-16] MEDS: FOLIC ACID 1 MG TAB PO SCH (09:00)
[2021-04-16] MEDS: THIAMINE 100 MG TAB PO SCH ×2 (09:00→21:00)
--- NOTE | 2021-04-16 13:30 | MHIPNPDOC ---
[facility] Progress Note Progress Note DATE OF SERVICE: 04/16/21 HISTORY: Patient is known to our service, since of history of polysubstance induced psychotic disorder.who called police due to concerns someone impersonating her and ruining her life, also expressed SI per PSA reports. She is well known to service and was last admitted 28 February 2021. Interval: Continues to be noncooperative, refusing medications, isolative to room, when attempting to engage in interview yells "I do not want to talk to anybody leave me alone", " not suicidal". VITAL SIGNS: See below. NEW TEST RESULTS: None, refusing all treatment at this time CURRENT MEDICATIONS: See below. MENTAL STATUS EXAMINATION: Patient is a 35-year old female, who is, withdrawn, lying in bed, with eyes shut, in hospital clothing, appears stated age Speech: Is impoverished. Language skills are poor. Thought processes including: Disorganized. Thought content: Does not cooperate with interview, denies suicidal ideation to have me leave the room. Abstract reasoning, and computation: Unable to fully. Description of associations: Unable to fully assess. Description of abnormal or psychotic thoughts: Parasternally preoccupied, irritable, mumbling to self. Judgment: Very poor. Insight: Poor. Orientation: Alert, sleeping in bed. Recent and remote memory: Poor. Attention span and concentration: Poor. Language: Belarusian. Fund of knowledge: Unable to assess Mood: " Leave me alone". Affect: Hostile, angry, disorganized, internally preoccupied. DIAGNOSES: 1. Unspecified psychotic disorder 2. Methamphetamine use disorder 3. Cannabis use disorder ASSESSMENT: Patient continues to be lying in bed, isolative to room, not engaging with treatment, refusing meds, and remains internally preoccupied disorganized, irritable and hostile despite efforts to engage in interview. As lengthiest history of polysubstance induced psychotic disorder. MANAGEMENT PLAN: We will continue medications, attempt to reengage patient, maintained on CIWA, has as needed's for agitation and psychotic symptoms, encouraged to take TIME SPENT: 15 minutes. Vital Signs Vital Signs Date Time Temp Pulse Resp B/P (MAP) Pulse Ox O2 Delivery O2 Flow Rate FiO2 04/15/21 06:48 99.7 84 20 159/98 (118) 96 Room Air Current Medications Current Medications Medications (Trade) Dose Ordered Sig/Dina Route PRN Reason Start Time Stop Time Status Last Admin Dose Admin Acetaminophen (Tylenol Tab) 650 mg Q6HP PRN PO HEADACHE or MILD DISCOMFORT 04/14/21 17:50 Al Hydrox/Mg Hydrox/Simethicone (Mylanta) 30 ml Q4HP PRN PO HEARTBURN/INDIGESTION 04/14/21 17:50 Diphenhydramine HCl (Benadryl) 50 mg Q6HP PRN PO ANXIETY/AGITATION 04/14/21 17:50 Divalproex Sodium (Depakote) 250 mg TID PO 04/15/21 16:00 Folic Acid (Folic Acid) 1 mg DAILY PO 04/15/21 09:00 Haloperidol (Haldol) 5 mg Q6HP PRN PO ANXIETY/AGITATION 04/14/21 17:50 Home Med (Home Med List Complete!) ASDIRECTED XX 04/13/21 23:25 04/13/21 23:28 DC Lorazepam (Ativan) 2 mg ASDIRECTED PRN PO SEE PROTOCOL 04/15/21 11:20 Lorazepam (Ativan) 2 mg Q10MP PRN IV AGITATION 04/13/21 17:30 04/13/21 18:37 Lorazepam (Ativan) 2 mg Q6HP PRN PO ANXIETY/AGITATION 04/14/21 17:50 Lorazepam (Ativan) 2 mg STAT STAT IM 04/13/21 17:11 04/13/21 17:12 DC 04/13/21 17:15 Magnesium Hydroxide (Milk Of Magnesia) 30 ml DAILYPRN PRN PO CONSTIPATION 04/14/21 17:50 Multivitamins (Theragram-M) 1 tab DAILY PO 04/15/21 09:00 Risperidone (RisperDAL) 2 mg QHS PO 04/15/21 21:00 Thiamine HCl (Thiamine HCl) 100 mg BID PO 04/15/21 11:40 04/17/21 21:01 Trazodone HCl (Desyrel) 50 mg QHSP PRN PO INSOMNIA 04/14/21 17:50 Allergies Coded Allergies: No Known Allergies (Unverified , 02/27/21) HARMAN HOLMAN MD Apr 16, 2021 13:30
[2021-04-16] MEDS: risperiDONE 2 MG TAB PO SCH (21:00)
[2021-04-17 06:49] VITALS: BP 131/78
[2021-04-17] MEDS: MULTIVITAMINS/MINERALS THERAP 1 TAB PO SCH (09:00)
[2021-04-17] MEDS: FOLIC ACID 1 MG TAB PO SCH (09:00)
[2021-04-17] MEDS: DIVALPROEX 250 MG TAB PO SCH ×3 (09:00→20:47)
--- NOTE | 2021-04-17 12:54 | MHIPNPDOC ---
[facility] Progress Note Progress Note DATE OF SERVICE: 04/17/21 HISTORY: Patient is known to our service, since of history of polysubstance induced psychotic disorder.who called police due to concerns someone impersonating her and ruining her life, also expressed SI per PSA reports. She is well known to service and was last admitted 28 February 2021. Interval: Patient continues to be isolated to room, not engaging with staff and refusing treatments including medications. When woken up can be verbally aggressive and yelling but no physical aggression or acts displayed on the unit. Spends most of the day lying in bed. On attempt to discuss with her had a brief conversation, got out of bed and looked at me stating " I don't want to leave, I want a but if I leave here the police are going to go after me, those fkers are after me". She then refused to cooperate further with interview and has made suicidal and homicidal statements per staff team meeting. VITAL SIGNS: See below. NEW TEST RESULTS: None, refusing all treatment at this time CURRENT MEDICATIONS: See below. MENTAL STATUS EXAMINATION: Patient is a 35-year old female, who is, lying in bed, but sits up when asked to speak with her, in hospital clothing, appears stated age, pale, poor eye contact, tattoos Speech: Is increased volume, spontaneous unprovoked into conversation, increased amount, pressured when in conversation Language skills are poor. Thought processes including: Disorganized. Thought content: Does not cooperate with interview, denies suicidal ideation to have me leave the room. Abstract reasoning, and computation: Unable to fully. De scription of associations: Unable to fully assess. Description of abnormal or psychotic thoughts: Internally preoccupied, paranoid Judgment: Very poor. Insight: Poor. Orientation: Alert, sleeping in bed. Recent and remote memory: Poor. Attention span and concentration: Poor. Language: Macanese. Fund of knowledge: Unable to assess Mood: " You can leave him not to do anything". Affect: Aggressive posturing, hostile and attacking verbally, highly angry when not sleeping, inappropriate, disorganized. DIAGNOSES: 1. Unspecified psychotic disorder 2. Methamphetamine use disorder 3. Cannabis use disorder ASSESSMENT: No change, patient continues to be lying in bed, isolative to room, not engaging with treatment, refusing meds, and remains internally preoccupied disorganized, irritable and hostile. Was somewhat more engaged today, sitting up in bed and expressing anger about her situation, but refused to elaborate and continue with interview. When left alone is lying comfortably in silent, no physical altercations with staff noted or overnight events. MANAGEMENT PLAN: We will continue medications, if patient continues to refuse may need to pursue TOO, attempt to reengage patient, maintained on CIWA, has as needed's for agitation and psychotic symptoms, encouraged to take. Has aggression precautions in place and as needed agitation medications. TIME SPENT: 15 minutes. Vital Signs Vital Signs Date Time Temp Pulse Resp B/P (MAP) Pulse Ox O2 Delivery O2 Flow Rate FiO2 04/17/21 06:49 97.5 64 16 131/78 (95) 99 Room Air Current Medications Current Medications Medications (Trade) Dose Ordered Sig/Dina Route PRN Reason Start Time Stop Time Status Last Admin Dose Admin Acetaminophen (Tylenol Tab) 650 mg Q6HP PRN PO HEADACHE or MILD DISCOMFORT 04/14/21 17:50 Al Hydrox/Mg Hydrox/Simethicone (Mylanta) 30 ml Q4HP PRN PO HEARTBURN/INDIGESTION 04/14/21 17:50 Diphenhydramine HCl (Benadryl) 50 mg Q6HP PRN PO ANXIETY/AGITATION 04/14/21 17:50 Divalproex Sodium (Depakote) 250 mg TID PO 04/15/21 16:00 Folic Acid (Folic Acid) 1 mg DAILY PO 04/15/21 09:00 Haloperidol (Haldol) 5 mg Q6HP PRN PO ANXIETY/AGITATION 04/14/21 17:50 Home Med (Home Med List Complete!) ASDIRECTED XX 04/13/21 23:25 04/13/21 23:28 DC Lorazepam (Ativan) 2 mg ASDIRECTED PRN PO SEE PROTOCOL 04/15/21 11:20 04/17/21 06:51 DC Lorazepam (Ativan) 2 mg Q10MP PRN IV AGITATION 04/13/21 17:30 04/13/21 18:37 Lorazepam (Ativan) 2 mg Q6HP PRN PO ANXIETY/AGITATION 04/14/21 17:50 Lorazepam (Ativan) 2 mg STAT STAT IM 04/13/21 17:11 04/13/21 17:12 DC 04/13/21 17:15 Magnesium Hydroxide (Milk Of Magnesia) 30 ml DAILYPRN PRN PO CONSTIPATION 04/14/21 17:50 Multivitamins (Theragram-M) 1 tab DAILY PO 04/15/21 09:00 Risperidone (RisperDAL) 2 mg QHS PO 04/15/21 21:00 Thiamine HCl (Thiamine HCl) 100 mg BID PO 04/15/21 11:40 04/17/21 06:51 DC Trazodone HCl (Desyrel) 50 mg QHSP PRN PO INSOMNIA 04/14/21 17:50 Allergies Coded Allergies: No Known Allergies (Unverified , 02/27/21) HARMAN HOLMAN MD Apr 17, 2021 12:54
[2021-04-17 17:17] VITALS: BP 110/78
[2021-04-17] MEDS: traZODone 50 MG TAB PO PRN (20:47)
[2021-04-17] MEDS: risperiDONE 2 MG TAB PO SCH (20:47)
[2021-04-18 05:39] VITALS: BP 125/65
[2021-04-18] MEDS: FOLIC ACID 1 MG TAB PO SCH (09:00)
[2021-04-18] MEDS: DIVALPROEX 250 MG TAB PO SCH ×3 (09:00→18:52)
[2021-04-18] MEDS: MULTIVITAMINS/MINERALS THERAP 1 TAB PO SCH (09:00)
--- NOTE | 2021-04-18 12:27 | MHIPNPDOC ---
[facility] Progress Note Progress Note DATE OF SERVICE: 04/18/21 HISTORY: Patient is known to our service, since of history of polysubstance induced psychotic disorder.who called police due to concerns someone impersonating her and ruining her life, also expressed SI per PSA reports. She is well known to service and was last admitted 28 February 2021. Interval: Charts reviewed, did take evening Risperdal yesterday which is an improvement as she had not been taking meds in previous days. Was seen walking in the hallway with staff at 1 point in the morning for food, otherwise was isolative to her room. On attempted interview sat up and yelled "screw you leave me alone and I do not talked about all life problems, you do not care, leave me alone". When trying to explore what these problems were refused to continue with interview, yelling "I'm not suicidal". Per chart review patient is inconsistent reports regarding suicidal ideation, remains irritable agitated and poorly communicative with staff. VITAL SIGNS: See below. NEW TEST RESULTS: None, refusing all treatment at this time CURRENT MEDICATIONS: See below. MENTAL STATUS EXAMINATION: Patient is a 35-year old female, who is, lying in bed, but sits up when asked to speak with her, in hospital clothing, appears stated age, pale, poor eye contact, tattoos Speech: Is increased volume, spontaneous unprovoked into conversation, increased amount, pressured when in conversation Language skills are poor. Thought processes including: Disorganized. Thought content: Does not cooperate with interview, denies suicidal ideation to have me leave the room. Abstract reasoning, and computation: Unable to fully. Description of associations: Unable to fully assess. Description of abnormal or psychotic thoughts: Internally preoccupied, paranoid Judgment: Very poor. Insight: Poor. Orientation: Alert, sleeping in bed. Recent and remote memory: Poor. Attention span and concentration: Poor. Language: Swedish. Fund of knowledge: Unable to assess Mood: " We may alone". Affect: Angry, hostile, irritable, inappropriate, labile. DIAGNOSES: 1. Unspecified psychotic disorder 2. Methamphetamine use disorder 3. Cannabis use disorder ASSESSMENT: Continues to be hostile, angry, irritable in context of drug withdrawal symptoms and disorganized state. Patient is poorly cooperative to interview, but has started taking antipsychotic medications including her night dose of Risperdal, was also seen walking with staff to get the food which is an improvement. Has inconsistent reporting on suicidal ideation, does not contract for safety. MANAGEMENT PLAN: Patient remains on CIWA, continue medications, has started to take Risperdal 2 mg nightly, will continue to track progress and assess for safety, her level anger puts her at significant risk if discharged, especially considering dangerous drug use, paranoia, level of disorganization. To evaluate for any metabolic disorders ordered fasting lipid panel and A1c for tomorrow a.m., due to low TSH on presentation we will also reorder TSH for tomorrow a.m. to evaluate thyroid function. TIME SPENT: 20 minutes. Vital Signs Vital Signs Date Time Temp Pulse Resp B/P (MAP) Pulse Ox O2 Delivery O2 Flow Rate FiO2 04/18/21 05:39 98.1 81 16 125/65 (85) 98 Room Air Current Medications Current Medications Medications (Trade) Dose Ordered Sig/Dina Route PRN Reason Start Time Stop Time Status Last Admin Dose Admin Acetaminophen (Tylenol Tab) 650 mg Q6HP PRN PO HEADACHE or MILD DISCOMFORT 04/14/21 17:50 Al Hydrox/Mg Hydrox/Simethicone (Mylanta) 30 ml Q4HP PRN PO HEARTBURN/INDIGESTION 04/14/21 17:50 Diphenhydramine HCl (Benadryl) 50 mg Q6HP PRN PO ANXIETY/AGITATION 04/14/21 17:50 Divalproex Sodium (Depakote) 250 mg TID PO 04/15/21 16:00 04/17/21 20:47 Folic Acid (Folic Acid) 1 mg DAILY PO 04/15/21 09:00 Haloperidol (Haldol) 5 mg Q6HP PRN PO ANXIETY/AGITATION 04/14/21 17:50 Home Med (Home Med List Complete!) ASDIRECTED XX 04/13/21 23:25 04/13/21 23:28 DC Lorazepam (Ativan) 2 mg ASDIRECTED PRN PO SEE PROTOCOL 04/15/21 11:20 04/17/21 06:51 DC Lorazepam (Ativan) 2 mg Q10MP PRN IV AGITATION 04/13/21 17:30 04/13/21 18:37 Lorazepam (Ativan) 2 mg Q6HP PRN PO ANXIETY/AGITATION 04/14/21 17:50 Lorazepam (Ativan) 2 mg STAT STAT IM 04/13/21 17:11 04/13/21 17:12 DC 04/13/21 17:15 Magnesium Hydroxide (Milk Of Magnesia) 30 ml DAILYPRN PRN PO CONSTIPATION 04/14/21 17:50 Multivitamins (Theragram-M) 1 tab DAILY PO 04/15/21 09:00 Risperidone (RisperDAL) 2 mg QHS PO 04/15/21 21:00 04/17/21 20:47 Thiamine HCl (Thiamine HCl) 100 mg BID PO 04/15/21 11:40 04/17/21 06:51 DC Trazodone HCl (Desyrel) 50 mg QHSP PRN PO INSOMNIA 04/14/21 17:50 04/17/21 20:47 Allergies Coded Allergies: No Known Allergies (Unverified , 02/27/21) HARMAN HOLMAN MD Apr 18, 2021 12:27
[2021-04-18] MEDS: NICOTINE 21MG/24HR 1 EA TRANSDERMAL TD PRN (17:43)
[2021-04-18] MEDS: haloperidoL 5 MG TAB PO PRN (18:52)
[2021-04-18] MEDS: risperiDONE 2 MG TAB PO SCH (18:52)
[2021-04-18] MEDS: traZODone 50 MG TAB PO PRN (21:14)
[2021-04-19] MEDS: DIVALPROEX 250 MG TAB PO SCH ×3 (08:47→21:00)
[2021-04-19] MEDS: FOLIC ACID 1 MG TAB PO SCH (08:47)
[2021-04-19] MEDS: haloperidoL 5 MG TAB PO PRN ×2 (08:47→18:43)
[2021-04-19] MEDS: MULTIVITAMINS/MINERALS THERAP 1 TAB PO SCH (08:47)
[2021-04-19] MEDS: NICOTINE 21MG/24HR 1 EA TRANSDERMAL TD PRN (08:48)
[2021-04-19] MEDS: risperiDONE 2 MG TAB PO SCH ×2 (19:24→19:30)
[2021-04-19] MEDS: traZODone 50 MG TAB PO PRN (19:24)
[2021-04-20] MEDS ORDERED: UNRESOLVED CLARIFICATION ENTRY XX SCH (00:01)
[2021-04-20] MEDS: MULTIVITAMINS/MINERALS THERAP 1 TAB PO SCH (09:46)
[2021-04-20] MEDS: FOLIC ACID 1 MG TAB PO SCH (09:46)
[2021-04-20] MEDS: DIVALPROEX 250 MG TAB PO SCH ×3 (09:47→21:00)
[2021-04-20] MEDS: haloperidoL 5 MG TAB PO PRN (10:08)
[2021-04-20 19:08] VITALS: BP 111/60
[2021-04-20] MEDS: risperiDONE 2 MG TAB PO SCH (21:00)
[2021-04-21] MEDS: FOLIC ACID 1 MG TAB PO SCH (08:01)
[2021-04-21] MEDS: MULTIVITAMINS/MINERALS THERAP 1 TAB PO SCH (08:01)
[2021-04-21] MEDS: DIVALPROEX 250 MG TAB PO SCH (08:02)
[2021-04-21] MEDS ORDERED: TRAZ-252 PO (10:26)
[2021-04-21] MEDS ORDERED: NICO21PAT TD (10:26)
[2021-04-21] MEDS ORDERED: HALO5TA PO (10:26)
[2021-04-21] MEDS ORDERED: DEPA250T32 PO (10:26)
--- NOTE | 2021-04-21 14:26 | MHDSPDOC ---
[facility] Discharge Summary Discharge Summary DATE OF ADMISSION: Apr 14, 2021 at 17:47 DATE OF DISCHARGE: Apr 21, 2021 at 11:50 DISCHARGE DIAGNOSES: 1. Since induced psychotic disorder 2. Methamphetamine use disorder, moderate, recurrent 3. Cannabis use disorder, moderate, recurrent 4. Borderline personality 5. Tobacco use disorder, given patch REASON FOR ADMISSION: Per PSA note: Pt brought to the ED on a 9.41 after pt complained to police that someone was impersonating her and ruining her life. Pt also expressed si repeatedly to police, resulting in her being brought to the ED for MHE. Tw entered pt's room to complete MHE. Pt appeared lethargic during the time TW was meeting with pt. Pt refused to participate in MHE. TW explained to pt that in order for us to determine pt's needs and set up either admission or discharge, pt would need to answer TW's questions and participate in MHE. Pt continued to refuse, stating she "did not care" what we decided to do with her and continued to decline to answer TW's questions or complete an evaluation. "Why do I have to keep answering these questions and talking about it I already told someone else. I don't care about going home, staying here, going to shelter, anywhere I don't care. I'm sick of this one person pretending to be me and messing everything up so I'm done." From that point, tw offered pt to have the opportunity to ask any questions, tell TW anything she thought was important for TW or psychiatry to know, or to decide to participate in MHE but pt still declined to do so and told TW to get out of her room and leave her alone. CONSULTANTS INVOLVED: See medical H&P by hospitalist TREATMENT AND PROGRESS ON THE UNIT : Patient was admitted to the [facility] on a 9.39 legal status, she was afforded the following treatment modalities: 1. Individual therapy 2. Group therapy 3. Medication management 4. Milieu Therapy 5. Safe environment 6. Substance abuse education HOSPITAL COURSE: Patient was admitted to the [facility] on a 9.3 legal status. She was medically cleared in the ED before coming onto the unit. Tox screen basic labs were ordered. Reported she used in drugs in her system prior to coming to the hospital including meth and cannabis. He was placed on a CIWA. Initially she spent most of her time isolating in her room lying in bed, appearing internally preoccupied, irritable and angry yelling at whoever came into the room, also reporting coming down from drugs with withdrawal symptoms, wanting to be left alone. On subsequent days she was refusing ordered Risperdal but was taking as needed Haldol approximately 5 mg daily, which she reports helped her mood anxiety and level of concentration. She also started taking her Depakote 250 mg 3 times daily for mood stability. She also took as needed lorazepam for increased anxiety and agitation upon initial presentation which was not given starting 2 days ago, as her level of agitation reduced. She was seen walking in the social media with staff and appeared to be more calm in the days prior to discharge. Talked to her in several settings, as nursing was concerned for poss ible manic symptoms, as she was talking a lot by the nursing station, on interview she was easily directable and able to sit calm and quietly, also was able to be interrupted without any issue. Was agreeable to continuing the Depakote ER 50 mg 3 times daily and Haldol 5 mg daily, also was given a nicotine patch for tobacco use. Was educated with motivational interviewing drug use, also offer treatments for her cravings, made social work aware to have an appointment for addictions as this is likely a major contributing factor for her admissions to the hospital. Prior to discharge stated she looks forward to going home and is financially supported by unemployment. Was offered continued stay but refused to be voluntarily admitted, reportedly feeling safe to return home. DISCHARGE ASSESSMENT: Prior to discharge on today's interview, patient is alert and oriented, dressed appropriately in hospital clothing with fair to good hygiene. She is able to smile and converse appropriately and pleasantly without excessive agitation or aggression. Denies depression, anxiety and drug cravings. Denies suicidal homicidal ideation, planning or intent. Denies is not observed with fernando, psychotic symptoms of delusions, bizarre thinking, obsessions, paranoia, ruminations, logical thoughts, flights of ideas, or having poor insight or judgment, patient has normal mentation and declines further hospitalization on a voluntary status and meets criteria for discharge today. Patient is encouraged to return to the hospital symptoms worsen or change and call the unit if she needs to speak to provider for questions regarding medications or care. No weapons endorsed at home, safety plan in place. MENTAL STATUS EXAMINATION ON DISCHARGE: Patient is a 35-year old female, who is in no acute distress, hospital clothing, appears stated age, good hygiene, good eye contact. Speech is spontaneous, talkative, not pressured. Language skills are intact. Thought processes including: Linear, logical. Thought content: Denies suicidal ideation, intent or plan. Denies homicidal ideation, intent or plan. Abstract reasoning, and computation: Normal Description of associations: Normal. Description of abnormal or psychotic thoughts: Denies, does not appear internally preoccupied. Judgment: Improved Insight: Improved. Orientation to x4. Recent and remote memory: Intact. Attention span and concentration: Good. Language: Hebrew. Fund of knowledge: Below average based on interview. Mood: "good doc" Affect: Euthymic, appropriate, mood congruent. MEDICATIONS ON DISCHARGE: See medication reconciliation for details CSSRS: Wish to be : No Nonspecific active suicidal thoughts: No Lifetime attempts: 0 Interrupted attempts: 0 Aborted attempts: 0 Preparatory acts or behavior: None Taken into consideration safety state, status, modifiable nonmodifiable risk factors patient is at chronically elevated risk on discharge according to [place] suicide evaluation. Safety plan in place, has follow-up appointments, no weapons endorsed. PLAN/FOLLOWUP ARRANGEMENTS: Follow Up Care Education Label * Mental Health Appt 1 * Mental Health [facility] * Established With This Provider No * Therapist ETTA * Date Apr 25, 2021 * Time 08:00 * Address of Clinic or Practice [address] [place] [address] * * Additional information PATIENT NEEDS TO ARRIVE AT 7:30 FOR INTAKE PAPERWORK. Follow Up Care Education Label * Medical * Medical Follow Up [facility] * Established With This Provider Yes * Therapist DR. MENDOZA * Date May 21, 2021 * Time 09:30 * Address of Clinic or Practice [address] [place] [address] * The amount of time spent in the coordination of care for this patient was approximately 35 minutes, including coordination of care. ETOH/Disorder Med Rx ETOH/DRUG DISORDER RX: Offrd @ d/c & pt refused Vital Signs/I&Os Vital Signs Date Time Temp Pulse Resp B/P (MAP) Pulse Ox O2 Delivery O2 Flow Rate FiO2 04/20/21 19:08 97.5 94 16 111/60 (77) 8/27/21 05:39 98 Room Air Medications Scheduled Benztropine Mesylate (Benztropine Mesylate) 1 Mg Tablet, 1 MG PO Q12H, (Reported) Divalproex Sodium (Depakote) 250 Mg Tablet.dr, 250 MG PO TID for mood stabilization, #21 Ferrous Sulfate (Ferrous Sulfate) 325 Mg Tablet.dr, 325 MG PO DAILY, (Reported) Haloperidol (Haloperidol) 5 Mg Tablet, 5 MG PO DAILY for nausea/vomiting for 7 Days, #7 Scheduled PRN Nicotine (Nicotine Patch) 21 Mg Patch.td24, 1 PATCH TD DAILYPRN PRN for NICOTINE WITHDRAWAL, #7 Trazodone HCl (Trazodone HCl) 50 Mg Tablet, 50 MG PO QHSP PRN for INSOMNIA, #7 Miscellaneous Medications [med rec comment] , (Reported) used last discharge for february 2021 Allergies Coded Allergies: No Known Allergies (Unverified , 02/27/21) HARMAN HOLMAN MD Apr 21, 2021 14:26
== END 2021-04-21 11:50 | disposition home or self-care (01) | DRG 776 ==
LOC: M ED 15:59 → M ED INP 04-14 17:47 → M PSY 04-14 23:25
PROVIDERS: ADMIT Student in an Organized Health Care Education/Training Program; ATTEND Student in an Organized Health Care Education/Training Program
DX: F19.950 Other psychoactive substance use, 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 with delusions (principal); F60.3 Borderline personality disorder; F17.200 Nicotine dependence, unspecified, uncomplicated; F12.90 Cannabis use, unspecified, uncomplicated; F15.90 Other stimulant use, unspecified, uncomplicated; Z79.899 Other long term (current) drug therapy

== ENCOUNTER 2021-05-06 11:56 | Inpatient (IN) | payer MEDICAID, OTHER ==
[~2021-05-06] VITALS: Ht 154.9 cm; Wt 53.8 kg
[~2021-05-06 11:56] MED LIST changes: +DIVA250T7 PO; +HALO5TA PO; +NICO21PAT TD; +TRAZ-252 PO; +med rec comment
[2021-05-06 13:35] LABS: HEMATOCRIT 32.3 % (36.0-47.0); MEAN CORPUSCULAR VOLUME 80.8 fl (80.0-96.0); PLATELET COUNT, AUTOMATED 391 10^3/uL (150-450); WHITE BLOOD COUNT 6.7 10^3/uL (4.0-10.0)
[2021-05-06 14:04] LABS: ACETAMINOPHEN LEVEL < 2.0 UG/ML (10.0-30.0); ALBUMIN 3.5 GM/DL (3.2-5.2); ALT/SGPT 27 U/L (12-78); BILIRUBIN,DIRECT < 0.1 MG/DL (0.0-0.2); BILIRUBIN,TOTAL 0.3 MG/DL (0.2-1.0); BLOOD UREA NITROGEN 9 MG/DL (7-18); CALCIUM LEVEL 8.7 MG/DL (8.5-10.1); CARBON DIOXIDE LEVEL 27 MEQ/L (21-32); CHLORIDE LEVEL 106 MEQ/L (98-107); CREATININE FOR GFR 0.72 MG/DL (0.55-1.30); ETHYL ALCOHOL (ETHANOL) < 0.003 % (0.000-0.010); GLOMERULAR FILTRATION RATE > 60.0 (>60); GLUCOSE, FASTING 95 MG/DL (70-100); POTASSIUM SERUM 3.9 MEQ/L (3.5-5.1); SALICYLATE LEVEL < 1.7 MG/DL (5.0-30.0); SODIUM LEVEL 140 MEQ/L (136-145); THYROID STIMULATING HORMONE 0.714 uIU/ML (0.358-3.740)
[2021-05-06 16:58] LABS: AMPHETAMINES LEVEL URINE POSITIVE (NEGATIVE); BARBITURATES URINE NEGATIVE (NEGATIVE); BENZODIAZEPINES URINE NEGATIVE (NEGATIVE); CANNABINOIDS URINE POSITIVE (NEGATIVE); COCAINE METABOLITE URINE NEGATIVE (NEGATIVE); METHADONE URINE NEGATIVE (NEGATIVE); OPIATES URINE NEGATIVE (NEGATIVE); PHENCYCLIDINE URINE NEGATIVE (NEGATIVE)
[2021-05-06 18:21] LABS: RSV AMPLIFICATION NEGATIVE (NEGATIVE)
[2021-05-06] MEDS ORDERED: HALO5TA PO (19:25)
[2021-05-06] MEDS ORDERED: DEPA250T32 PO (19:25)
[2021-05-06] MEDS ORDERED: TRAZ-186 PO (19:25)
[2021-05-06] MEDS ORDERED: NICO21DI38 TD (19:25)
[2021-05-06] MEDS ORDERED: BENZ-52 PO (19:35)
[2021-05-06] MEDS ORDERED: HOME MED LIST COMPLETE! XX SCH (19:40)
[2021-05-06] MEDS ORDERED: traZODone 50 MG TAB PO PRN (20:10)
[2021-05-06] MEDS ORDERED: MOM 30ML SUSPENSION UDC PO PRN (20:10)
[2021-05-06] MEDS ORDERED: MAALOX 30 ML SUSP *UDC PO PRN (20:10)
[2021-05-06] MEDS ORDERED: OLANZapine ORAL DISINTEGRATING TAB 5MG PO PRN (20:15)
[2021-05-06] MEDS: DIVALPROEX 250 MG TAB PO SCH (21:00)
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
[2021-05-07] MEDS: NICOTINE 21MG/24HR 1 EA TRANSDERMAL TD SCH (09:00)
[2021-05-07] MEDS: DIVALPROEX 250 MG TAB PO SCH ×3 (09:00→21:00)
[2021-05-07] MEDS: haloperidoL 5 MG TAB PO SCH (09:00)
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
[2021-05-07] MEDS: ACETAMINOPHEN TAB 650MG DOSE (2X325MG) PO PRN (14:48)
[2021-05-07 16:26] VITALS: BP 140/88
--- NOTE | 2021-05-07 19:01 | ECGEPIP ---
[facility] - ED Test Date: 2021-05-06 Pat Name: LAURI BUCK Department: Room: - Gender: Female Bpm Architect: [facility] : 1985 Requested By: AMELIA Alvarez Order Number: [id number] Reading MD: Ce Butt Measurements Intervals [place] Rate: 68 P: 24 VA: 124 QRS: 58 QRSD: 74 T: 27 QT: 386 QTc: 410 Interpretive Statements Normal sinus rhythm decreased rate 02/27/21 Electronically Signed on 05-07-2021 19:01:20 EDT by Ce Butt
[2021-05-08 07:16] VITALS: BP 149/88
[2021-05-08] MEDS: NICOTINE 21MG/24HR 1 EA TRANSDERMAL TD SCH (09:00)
[2021-05-08] MEDS: DIVALPROEX 250 MG TAB PO SCH ×3 (09:00→20:18)
[2021-05-08] MEDS: haloperidoL 5 MG TAB PO SCH (09:00)
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
[2021-05-08 18:10] VITALS: BP 134/90
[2021-05-08 18:11] VITALS: BP 134/90
[2021-05-08] MEDS: ACETAMINOPHEN TAB 650MG DOSE (2X325MG) PO PRN (20:19)
[2021-05-09 06:43] VITALS: BP 170/80
[2021-05-09] MEDS: haloperidoL 5 MG TAB PO SCH (09:00)
[2021-05-09] MEDS: NICOTINE 21MG/24HR 1 EA TRANSDERMAL TD SCH (09:00)
[2021-05-09] MEDS: DIVALPROEX 250 MG TAB PO SCH ×3 (09:00→20:22)
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
[2021-05-10] MEDS: DIVALPROEX 250 MG TAB PO SCH ×3 (07:40→21:00)
[2021-05-10] MEDS: haloperidoL 5 MG TAB PO SCH (07:40)
[2021-05-10] MEDS: NICOTINE 21MG/24HR 1 EA TRANSDERMAL TD SCH (07:41)
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
[2021-05-10] MEDS: ACETAMINOPHEN TAB 650MG DOSE (2X325MG) PO PRN (15:58)
[2021-05-10] MEDS: OLANZapine 5 MG TAB PO SCH (21:00)
[2021-05-11] MEDS: NICOTINE 21MG/24HR 1 EA TRANSDERMAL TD SCH (09:00)
[2021-05-11] MEDS: haloperidoL 5 MG TAB PO SCH (09:00)
[2021-05-11] MEDS: DIVALPROEX 250 MG TAB PO SCH ×3 (09:00→21:00)
[2021-05-11] MEDS: PALIPERIDONE 6 MG ER TAB (INVEGA) PO SCH (21:00)
[2021-05-11] MEDS: OLANZapine 5 MG TAB PO SCH (21:00)
[2021-05-12] MEDS: NICOTINE 21MG/24HR 1 EA TRANSDERMAL TD SCH (08:09)
[2021-05-12] MEDS: DIVALPROEX 250 MG TAB PO SCH ×3 (08:09→21:00)
[2021-05-12] MEDS ORDERED: LORazepam 2 MG/ML VIAL IM STA (12:08)
[2021-05-12] MEDS ORDERED: HALOPERIDOL 5MG/ML VIAL (J1630 PER 1) IM STA (12:08)
[2021-05-12] MEDS ORDERED: diphenhydrAMINE 50MG/ML VIAL (J1200) IM STA (12:08)
--- NOTE | 2021-05-12 12:46 | MHIR ---
General Date: May 12, 2021 Time Initiated: 12:08 Restraint Documentation Order/Evaluation FACE TO FACE: yes PHYSICIAN ASSESSMENT: Acute agitation with threatening statements and aggressive posturing towards staff, with continued escalation despite attempts to redirect REASON FOR RESTRAINT: Patient poses imminent danger of harming self or others: Patient was yelling and throwing things such as her meal tray in the hallway threatening posture threatening myself and staff saying "I am gonna fk you up" with multiple expletives, was clenching fists and coming up with myself threatening aggressively and had to move to a room on the side. He was not responding to redirection and yelling excessively getting increasingly more agitated. DE-ESCALATION INTERVENTIONS ATTEMPTED BEFORE USE OF RESTRAINTS: Redirection, calming techniques, offered medications orally. [MECHANICAL AND/OR CHEMICAL] RESTRAINTS USED: Mechanical, chemical restraints LENGTH OF TIME ORDERED IN RESTRAINTS: 4 hours WHEN TO DISCONTINUE RESTRAINTS: When the patient is no longer a threat to themselves or others. Post evaluation of restraint due in 24 hours. HARMAN HOLMAN MD May 12, 2021 12:46
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
[2021-05-12] MEDS ORDERED: OLANZapine ORAL DISINTEGRATING TAB 5MG PO PRN (19:10)
--- NOTE | 2021-05-12 19:13 | MHPR ---
General Date: May 12, 2021 Time: 14:00 Post-Restraint Evaluation THE OUTCOME OF THE RESTRAINT: Patient calmly lying in bed EFFECTIVENESS OF THE RESTRAINT: Mechanical and/or chemical: Positive ANY EVIDENCE THAT THE PATIENT WAS AFFECTED EMOTIONALLY: no ANY NEED FOR COUNSELING/ASSISTANCE: no CHANGES IN TREATMENT PLAN: Will encourage to take prn medications for agitation and standing order of antipsychotic RECOMMENDATIONS FOR FUTURE INCIDENTS: Earlier administration of prn medication for severe agitation HARMAN HOLMAN MD May 12, 2021 19:13
[2021-05-12] MEDS: PALIPERIDONE 6 MG ER TAB (INVEGA) PO SCH (21:00)
[2021-05-12] MEDS: OLANZapine 5 MG TAB PO SCH (21:00)
[2021-05-13 06:00] VITALS: BP 129/74
[2021-05-13] MEDS: DIVALPROEX 250 MG TAB PO SCH (08:00)
[2021-05-13] MEDS: NICOTINE 21MG/24HR 1 EA TRANSDERMAL TD SCH (08:01)
[2021-05-13] MEDS ORDERED: ARIPiprazole 10 MG TAB PO SCH (09:50)
[2021-05-13] MEDS ORDERED: ARIPiprazole MONOHYDRATE 400 MG INJ (ABILIFY) IM ONE (11:00)
[2021-05-13] MEDS ORDERED: ABIL10TA9 PO (14:57)
[2021-05-13] MEDS ORDERED: DEPA250T32 PO (14:57)
[2021-05-13] MEDS ORDERED: ABIL400I IM (14:57)
[2021-05-13] MEDS ORDERED: NICO21DI38 TD (14:57)
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
[2021-05-14] MEDS ORDERED: ARIPiprazole 10 MG TAB PO SCH (09:00)
[2021-06-12] MEDS ORDERED: ARIPiprazole MONOHYDRATE 400 MG INJ (ABILIFY) IM SCH (09:00)
== END 2021-05-13 15:30 | disposition home or self-care (01) | DRG 750 ==
LOC: M ED 11:56 → M ED INP 20:06 → M PSY 20:57
PROVIDERS: ADMIT Psychiatry & Neurology Psychiatry; ATTEND Student in an Organized Health Care Education/Training Program
DX: F25.0 Schizoaffective disorder, bipolar type (principal); Z91.14 Patient's other noncompliance with medication regimen; D64.9 Anemia, unspecified; Z91.19 Patient's noncompliance with other medical treatment and regimen; F17.200 Nicotine dependence, unspecified, uncomplicated; F60.3 Borderline personality disorder; F60.2 Antisocial personality disorder; F12.90 Cannabis use, unspecified, uncomplicated; F15.90 Other stimulant use, unspecified, uncomplicated; F11.90 Opioid use, unspecified, uncomplicated; Z79.899 Other long term (current) drug therapy

== ENCOUNTER 2021-05-20 23:39 | Inpatient (IN) | payer MEDICAID, OTHER ==
[~2021-05-20] VITALS: Ht 152.4 cm; Wt 53.9 kg
[~2021-05-20 23:39] MED LIST changes: +ABIL10TA9 PO; +ABIL400I IM; +NICO21DI38 TD; +TRAZ-186 PO
[2021-05-21] MEDS ORDERED: diphenhydrAMINE 50MG/ML VIAL (J1200) IM ONE (00:10)
[2021-05-21] MEDS ORDERED: LORazepam 2 MG/ML VIAL IM ONE (00:10)
[2021-05-21] MEDS ORDERED: HALOPERIDOL 5MG/ML VIAL (J1630 PER 1) IM ONE (00:10)
[2021-05-21 00:55] LABS: HEMATOCRIT 32.8 % (36.0-47.0); HEMOGLOBIN 10.3 g/dl (12.0-15.5); MEAN CORPUSCULAR HEMOGLOBIN 24.7 pg (27.0-33.0); MEAN CORPUSCULAR HGB CONC 31.4 g/dl (32.0-36.5); MEAN CORPUSCULAR VOLUME 78.7 fl (80.0-96.0); PLATELET COUNT, AUTOMATED 411 10^3/uL (150-450); RED BLOOD COUNT 4.17 10^6/uL (4.00-5.40); WHITE BLOOD COUNT 8.6 10^3/uL (4.0-10.0)
[2021-05-21 01:33] LABS: HCG, SERUM QUALITATIVE NEGATIVE (NEGATIVE)
[2021-05-21 01:37] LABS: ACETAMINOPHEN LEVEL < 2.0 UG/ML (10.0-30.0); ALBUMIN 3.8 GM/DL (3.2-5.2); ALT/SGPT 25 U/L (12-78); BILIRUBIN,DIRECT < 0.1 MG/DL (0.0-0.2); BILIRUBIN,TOTAL 0.3 MG/DL (0.2-1.0); BLOOD UREA NITROGEN 13 MG/DL (7-18); CALCIUM LEVEL 9.4 MG/DL (8.5-10.1); CARBON DIOXIDE LEVEL 26 MEQ/L (21-32); CHLORIDE LEVEL 108 MEQ/L (98-107); ETHYL ALCOHOL (ETHANOL) < 0.003 % (0.000-0.010); GLOMERULAR FILTRATION RATE > 60.0 (>60); GLUCOSE, FASTING 96 MG/DL (70-100); SALICYLATE LEVEL < 1.7 MG/DL (5.0-30.0); SODIUM LEVEL 141 MEQ/L (136-145); TOTAL PROTEIN 7.3 GM/DL (6.4-8.2)
[2021-05-21] MEDS ORDERED: LORazepam 2 MG TAB PO STA (13:27)
[2021-05-21 14:17] LABS: AMPHETAMINES LEVEL URINE POSITIVE (NEGATIVE); BARBITURATES URINE NEGATIVE (NEGATIVE); BENZODIAZEPINES URINE NEGATIVE (NEGATIVE); CANNABINOIDS URINE POSITIVE (NEGATIVE); COCAINE METABOLITE URINE NEGATIVE (NEGATIVE); METHADONE URINE NEGATIVE (NEGATIVE); OPIATES URINE NEGATIVE (NEGATIVE); PHENCYCLIDINE URINE NEGATIVE (NEGATIVE)
[2021-05-21 16:24] LABS: RSV AMPLIFICATION NEGATIVE (NEGATIVE)
[2021-05-21] MEDS ORDERED: ACETAMINOPHEN TAB 650MG DOSE (2X325MG) PO PRN (16:30)
[2021-05-21] MEDS ORDERED: OLANZapine ORAL DISINTEGRATING TAB 5MG PO PRN (16:30)
[2021-05-21] MEDS ORDERED: MAALOX 30 ML SUSP *UDC PO PRN (16:30)
[2021-05-21 17:31] VITALS: BP 114/78
[2021-05-21] MEDS ORDERED: ABIL400I IM (20:37)
[2021-05-21] MEDS ORDERED: HOME MED LIST COMPLETE! XX SCH (20:40)
[2021-05-21] MEDS: OLANZapine 10 MG TAB PO SCH (21:00)
[2021-05-22 07:18] VITALS: BP 124/67
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
[2021-05-22] MEDS ORDERED: INFLUENZA QUADRIVALENT PF VACCINE 0.5ML SYRINGE IM ONE (09:00)
[2021-05-22] MEDS: NICOTINE 14 MG/24 HR TRANSDERMAL TD SCH (09:00)
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
[2021-05-22] MEDS: OLANZapine 10 MG TAB PO SCH ×2 (20:17→20:37)
[2021-05-22] MEDS: traZODone 50 MG TAB PO PRN (20:38)
[2021-05-23] MEDS: NICOTINE 14 MG/24 HR TRANSDERMAL TD SCH (09:00)
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
[2021-05-23] MEDS: traZODone 50 MG TAB PO PRN (19:31)
[2021-05-23] MEDS: OLANZapine 10 MG TAB PO SCH (19:32)
[2021-05-24] MEDS: NICOTINE 14 MG/24 HR TRANSDERMAL TD SCH (09:00)
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
[2021-05-24] MEDS: OLANZapine 10 MG TAB PO SCH (20:05)
[2021-05-24] MEDS: traZODone 50 MG TAB PO PRN (20:06)
[2021-05-25] MEDS: NICOTINE 14 MG/24 HR TRANSDERMAL TD SCH (08:28)
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
[2021-05-25 16:41] VITALS: BP 132/78
[2021-05-25] MEDS: OLANZapine 10 MG TAB PO SCH (20:12)
[2021-05-25] MEDS: traZODone 50 MG TAB PO PRN (20:12)
[2021-05-26 07:15] VITALS: BP 117/63
[2021-05-26] MEDS: NICOTINE 14 MG/24 HR TRANSDERMAL TD SCH (08:16)
[2021-05-26] MEDS: DIVALPROEX 250MG *ER* TAB PO SCH (09:00)
[2021-05-26] MEDS ORDERED: haloperidoL 5 MG TAB PO PRN (11:05)
[2021-05-26] MEDS ORDERED: LORazepam 2 MG/ML VIAL IM STA (11:11)
[2021-05-26] MEDS ORDERED: diphenhydrAMINE 50MG/ML VIAL (J1200) IM STA (11:11)
[2021-05-26] MEDS ORDERED: HALOPERIDOL 5MG/ML VIAL (J1630 PER 1) IM STA (11:11)
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
[2021-05-27 06:00] VITALS: BP 122/74
[2021-05-27] MEDS: DIVALPROEX 250MG *ER* TAB PO SCH (09:00)
[2021-05-27] MEDS: NICOTINE 14 MG/24 HR TRANSDERMAL TD SCH (09:00)
[2021-05-27] MEDS ORDERED: ABIL400I IM (11:38)
[2021-05-27] MEDS ORDERED: NICO14PA TD (11:38)
[2021-05-27] MEDS ORDERED: TRAZ-186 PO (11:38)
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
== END 2021-05-27 13:37 | disposition home or self-care (01) | DRG 776 ==
LOC: M ED 23:39 → M ED INP 05-21 16:26 → M PSY 05-21 16:40
PROVIDERS: ADMIT Student in an Organized Health Care Education/Training Program; ATTEND Student in an Organized Health Care Education/Training Program
DX: F15.921 Other stimulant use, unspecified with intoxication delirium (principal); F12.950 Cannabis use, unspecified with psychotic disorder with delusions; F31.9 Bipolar disorder, unspecified; F17.210 Nicotine dependence, cigarettes, uncomplicated

== ENCOUNTER 2021-07-08 13:57 | Emergency (ER) | payer MEDICAID, OTHER ==
[~2021-07-08] VITALS: Ht 152.4 cm; Wt 60.3 kg
[~2021-07-08 13:57] MED LIST changes: +NICO14PA TD
[2021-07-08 13:58] VITALS: BP 127/78
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
--- OUTSIDE RECORDS SUMMARY | 2021-07-08 14:40 | CCD ---
Author Author [facility] Address Unknown Phone Unavailable Care Team Providers Care Geological Technical Officer Name Role Phone Farden, M Wolfgang Unavailable [...] Unavailable Unavailable Farden, M Wolfgang Unavailable Unavailable Althhaydee, Julianna CONTRACT SERVICEMAN Unavailable Unavailable Alise Vuong CONTRACT SERVICEMAN Unavailable Unavailable Azalia Puckett Unavailable Berenice Arambula [...] is protected by Article 27-F of the [facility] Public Health law. If you continue you may have access to information: Regarding HIV / AIDS; Provided by facilities licensed or operated by the [facility] Office of Mental Health; or Provided by the [facility] Office for People With Developmental Disabilities. If such information is present, then the following [facility] mandated warning applies: This information has [...] law may result in a fine or skilled nursing sentence or both. A general authorization for the release of medical or other information is NOT sufficient authorization for further disc losure. Allergies and Adverse Reactions Type Description Substance Reaction Status Data Source(s ) Drug allergy No Known Allergies No Known Allergies [facility] Encounters Encounter Providers Location Date Indications Data Source(s ) Extended Individual Psychotherapy - 45 min Attender: Ghada Puckett [facility] 01/22/2021 10:00:00 AM EDT - 01/22/2021 10:00:00 AM EDT [facility] ([facility]) Attender: Azalia Puckett 01/22/2021 12:00:00 AM EDT [facility] ([facility]) Attender: Berenice Ralf 01/13/2021 12:00:0 0 AM EDT [facility] ([facility]) Extended Individual Psychotherapy - 45 min Attender: Taina morales [facility] 01/10/2021 11:45:00 AM EDT - 01/10/2021 11:45:00 AM EDT [facility] ([facility]) Outpatient Attender: Julianna Page N PAdmitter: Julianna Page NPConsultant: Julianna Page CONTRACT SERVICEMAN 01/01/2021 11:47:00 AM EDT [facility] Outpatient Attender: Alise Vuong NP Admitter: Julianna Page NPConsultant: Julianna Page CONTRACT SERVICEMAN 01/01/2021 11:47:00 AM EDT [facility] Out[facility] Attender: Alise Vuong NP Admitter: Julianna Page NPConsultant: Julianna Page CONTRACT SERVICEMAN 01/01/2021 11:47:00 AM EDT [facility] Inpatient Attender: Julianna Page NPAdmitter: Julianna daniel CONTRACT SERVICEMAN 01/01/2021 11:47:00 AM EDT - 01/06/2021 01:05:00 PM EDT [facility] Psychosis Patient discharged. Outpatient Attender: Anselmo ColindresAdmitter : Julianna Page NPConsultant: Julianna Page CONTRACT SERVICEMAN 01/01/2021 11:47:00 AM EDT [facility] Outpatient Attender: Alise Vuong NP Admitter: Julianna Page NPConsultant: Julianna Althouse CONTRACT SERVICEMAN 01/01/2021 11:47:00 AM EDT [facility] Out[facility] Attender: Wolfgang Damon mitter: Julianna Page NPConsultant: Julianna Page CONTRACT SERVICEMAN 01/01/2021 11:47:00 AM EDT [facility] Medications Medication Brand Name Start Date Product Form Dose Route Admi nistrative Instructions Pharmacy Instructions Status Indications Reaction Description Data Source(s) 1 mg 02/07/2021 12:00:00 AM EDT tablet 14 TAKE ONE TABLET BY MOUTH EVERY 12 HOURS TAKE ONE TABLET BY MOUTH EVERY 12 HOURS SOLD: 02/07/2021 [facility] 325 mg (65 mg iron) 01/16/2021 12:00:00 AM EDT tablet, delayed release (DR/EC) 30 TAKE ONE TABLET BY MOUTH EVERY DAY TAKE ONE TABL ET BY MOUTH EVERY DAY SOLD: 01/16/2021 [facility] Insurance Providers Payer name Policy type / Coverage type Policy ID Covered republican ID Covered republican's relationship to augustin Policy Augustin Plan Information [employer] [facility] [id number] SP [id number] SELF PAY [facility] PL[facility] [id number] SP [id number] [facility] [id number] SP [id number] [employer] XIX [id number] 18 [id number] ANS-Medicaid [id number] [facility]) O [id number] S [id number] [employer] [facility] [id number] SP [id number] [facility] [id number] SP [id number] [facility] [id number] S [id number] [facility] [id number] SP [id number] [facility] [id number] S [id number] SELF-PAY [id number] S [id number] [facility] [employer] [id number] SP [id number] SELF PAY ONLY [id number] SP [id number] MEDICAID [id number] SP [id number] [facility] COMMUNITY PLAN [facility] [id number] SP [id number] SELF PAY [id number] SP [id number] [facility] [id number] SP [id number] [facility] [employer] [id number] SP [id number] [facility] [id number] SP [id number] Problems, Conditions, and Diagnoses Code Display Name Description Problem Type Effective Dates Data Source(s) 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, 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, unspecified F19.959 - Other psychoactive substance use, 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, unspecified Diagnosis 01/01/2021 11:47:00 AM EDT [facility] 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, unspecified F19.159 - Other psychoactive substance a buse with psychoactive substance-induced psychotic disorder, unspecified Diagnosis 01/01/2021 11:47:00 AM EDT [facility] Z13.9 Encounter for screening, unspecified Z13 .9 - Encounter for screening, unspecified Diagnosis 01/01/2021 11:47:00 AM [facility] Surgeries/Procedures Procedure Description Date Indications Data Source(s) Extended Individual Psychotherapy - 45 min 01/22/2021 12:00:00 AM EDT - 01/22/2021 12:00:00 AM EDT [facility] ([facility]) Extended Individual Psychotherapy - 45 min 12:00:00 AM EDT [facility] ([facility]) Extended Individual Psychotherapy - 45 min 01/13/2021 12:00:00 AM EDT - 01/13/2021 12:00:00 AM EDT [facility] ([facility]) Extended Individual Psychotherapy - 45 min 12:00:00 AM EDT [facility] ([facility]) Results ID Date Data Source [id number] 05/21/2021 03:28:00 PM EDT [facility] Name Value Range Interpretation Code Description Data Concepcion rce(s) Supporting Document(s) SARS coronavirus 2 RNA [Presence] in Res piratory specimen by BERTRAND with probe detection NEGATIVE [facility] This lab was ordered by [facility] a nd reported by [facility]. ID Date Data Source [id number] 05/06/2021 05:06:00 PM EDT [facility] Name Value Range Interpretation Code Description Data Concepcion rce(s) Supporting Document(s) SARS coronavirus 2 RNA [Presence] in Res piratory specimen by BERTRAND with probe detection NEGATIVE [facility] This lab was ordered by [facility] a nd reported by [facility]. ID Date Data Source [id number] 04/14/2021 07:24:00 PM EDT [facility] Name Value Range Interpretation Code Description Data Concepcion rce(s) Supporting Document(s) SARS coronavirus 2 RNA [Presence] in Res piratory specimen by BERTRAND with probe detection NEGATIVE [facility] This lab was ordered by [facility] a nd reported by [facility]. ID Date Data Source [id number] 02/28/2021 12:15:00 PM EDT [facility] Name Value Range Interpretation Code Description Data Concepcion rce(s) Supporting Document(s) SARS coronavirus 2 RNA [Presence] in Res piratory specimen by BERTRAND with probe detection NEGATIVE [facility] This lab was ordered by [facility] a nd reported by [facility]. ID Date Data Source [id number] 01/24/2021 08:35:00 AM EDT [facility] Name Value Range Interpretation Code Description Data Concepcion rce(s) Supporting Document(s) SARS coronavirus 2 RNA [Presence] in Res piratory specimen by BERTRAND with probe detection NEGATIVE [facility] This lab was ordered by [facility] a nd reported by [facility]. ID Date Data Source [id number] 01/09/2021 08:36:00 AM EDT [facility] Name Value Range Interpretation Code Description Data Concepcion rce(s) Supporting Document(s) SARS CORONAVIRUS 2 RNA:PRTHR:PT:RESPIRATORY:ORD:PROBE.AMP.TAR Not D etected [facility] This lab was ordered by [facility] an d reported by [facility]. ID Date Data Source [id number] 01/05/2021 08:34:00 AM EDT [facility] [address] [place] [address] HEALTH INFORMATION MANAGEMENT [facility] Psychosocial Summary : [id number] Signed Patient: Lauri Buck Acct:[id number] Unit: MR [id number] : 1985 Loc: [facility] Room/Bed: 823-B Age/Sex: 35 / F ADM Date: 01/01/21 cc: General/History - Presenting Problem Presenting Problem: Lauri is a 35yr old single disabled female living alone in [facility]. Lauri was brought to [facility] by police after she reported suicid al [...] status. She does report spending time in [facility] but declines to discuss charges. She is expressing paranoid and grandiose delusions reporting that a Francksamir Moyer is or has killed her entire family, all of her [facility] friends, and is trying to kill her. [...] She reports not wanting to return to [place] upon discharge and states she plans to present to [facility] upon discharge - Directives Does the Patient [...] Person?: No Are you part of any samaritan/spirtual community?: No - Current Living/Relationship History Current Living Arrangement: Apartment Who Do You Live With?: self OK to Return Home: Yes Weapons in household: No Currently in a Relationship?: No Ever Been ?: No Any Children?: denies - Family History Where Were You Faisal rn/Raised?: [place] How is Your Relationship Now with Family [...] substance use - Recommendations Recommendations for Treatment: telegraphic typewriter installer recommends that Lauri follow up with [facility] for ongoing mental health and substance usetreatment upon discharge Discharge plan: Will discharge to [facility] per her request Signed By:Olga Peters <<Signature on File>> Signed Date/Time: 01/05/21899 Co-Signer: Co-Signed Date/Time: Initializing User: Olga Peters LMSW 01/05/2134 3 3 Name Value Range Interpretation Code Description Data Concepcion rce(s) Supporting Document(s) ID Date Data Source [id number] 01/02/2021 11:45:00 [place] [address] HEALTH INFORMATION MANAGEMENT History and Physical Report : [id number] Signed Patient: Lauri Buck Acct:[id number] Unit: MR [id number] : 1985 Loc: [facility] Room/Bed: 823-B Age/Sex: 35 / F ADM Date: 01/01/21 cc: History Physical Date of Service (Initial Exam): 01/02/21 Chief Complaint: "Leave me the fuck alone" History of Present Illness: 35-year-old female currently inpatient mental health unit consult on forhistory and physical examination. Patient has been aggressive uncooperative with staff throughout the day. Patient was uncooperative with this telegraphic typewriter installer as well. Patient refused to cooperate in [...] charges for this visit?: Yes Inpt Consult [id number] Cons Level 1: Yes Signed By:Wolfgang Baker <<Signature on File>> Signed Date/Time: 01/02/21 1148 Co-Signer: Bienvenido Ramírez MD Co-Signed Date/Time: 01/02/21 1321 Initializing User: Wolfgang Baker NP 01/02/21 1145 1145 1145 Name Value Range Interpretation Code Description Data Concepcion rce(s) Supporting Document(s) ID Date Data Source [id number] 01/01/2021 03:16:00 AM EDT [facility] Name Value Range Interpretation Code Description Data Concepcion rce(s) Supporting Document(s) SARS-CoV-2 (COVID 19) NEGATIVE - SARS-CoV-2 (COVID19) [facility] This lab was ordered by [facility] a nd reported by [facility]. ID Date Data Source [id number] 07/30/2020 03:05:00 AM EST [facility] Name Value Range Interpretation Code Description Data Concepcion rce(s) Supporting Document(s) SARS coronavirus 2 RNA [Presence] in Res piratory specimen by BERTRAND with probe detection [facility] This lab was ordered by [facility] a nd reported by [facility]. Procedure Social History Code Duration Value Status Description Data Source(s ) Smoking 01/22/2021 12:00:00 AM EDT Unknown if ever smoked comp leted Unknown if ever smoked [facility] ([facility]) Smoking 01/13/2021 12:00:00 AM EDT Unknown if ever smoked comp leted Unknown if ever smoked [facility] ([facility])
== END 2021-07-08 14:15 | disposition left against medical advice (07) ==
LOC: M ED 13:57
DX: Z53.21 Procedure and treatment not carried out due to patient leaving prior to being seen by health care provider (principal)

== ENCOUNTER → 2021-12-26 | Outpatient (CLI) | payer MEDICAID, OTHER ==
[~2021-12-26] MED LIST changes: -HALO5TA PO; +HALO5TAB33 PO
[2021-12-26 15:30] LABS: HEMATOCRIT 40.1 % (36.0-47.0); HEMOGLOBIN 12.5 g/dl (12.0-15.5); MEAN CORPUSCULAR HEMOGLOBIN 26.5 pg (27.0-33.0); MEAN CORPUSCULAR HGB CONC 31.2 g/dl (32.0-36.5); MEAN CORPUSCULAR VOLUME 85.1 fl (80.0-96.0); PLATELET COUNT, AUTOMATED 425 10^3/uL (150-450); RED BLOOD COUNT 4.71 10^6/uL (4.00-5.40)
[2021-12-26 15:40] LABS: HEMOGLOBIN A1c 5.2 %
[2021-12-26 16:03] LABS: ALBUMIN 4.4 GM/DL (3.2-5.2); ALT/SGPT 18 U/L (12-78); BILIRUBIN,TOTAL 0.2 MG/DL (0.2-1.0); BLOOD UREA NITROGEN 9 MG/DL (7-18); CALCIUM LEVEL 9.5 MG/DL (8.5-10.1); CARBON DIOXIDE LEVEL 31 MEQ/L (21-32); CHLORIDE LEVEL 104 MEQ/L (98-107); CHOLESTEROL LEVEL 197 MG/DL (<200); CHOLESTEROL RISK RATIO 3.177 (<5); CREATININE FOR GFR 0.76 MG/DL (0.55-1.30); FREE T4 1.13 NG/DL (0.76-1.46); GLOMERULAR FILTRATION RATE > 60.0 (>60); GLUCOSE, FASTING 94 MG/DL (70-100); HDL CHOLESTEROL 62 MG/DL (>40); LDL CHOLESTEROL 116 MG/DL (<100); NON-HDL-C 135 MG/DL; SODIUM LEVEL 139 MEQ/L (136-145); TRIGLYCERIDES LEVEL 93 MG/DL (<150)
[2021-12-26 16:11] LABS: HEPATITIS B SURFACE ANTIGEN NEGATIVE (NEGATIVE)
[2021-12-26 16:39] LABS: HEPATITIS C VIRUS ABY INDEX 0.1 INDEX (<0.8)
[2021-12-26 16:40] LABS: HIV 1&2 SCREEN CENTAUR NEGATIVE (NEGATIVE)
== END ==
LOC: M PLALAB 12:54
PROVIDERS: ATTEND Student in an Organized Health Care Education/Training Program
DX: Z12.4 Encounter for screening for malignant neoplasm of cervix (principal); F19.11 Other psychoactive substance abuse, in remission; Z68.30 Body mass index [BMI] 30.0-30.9, adult

== ENCOUNTER → 2021-12-26 | Outpatient (REF) | payer MEDICAID, OTHER | LOC: M SFHCPLAZ 16:48 | PROVIDERS: ATTEND Student in an Organized Health Care Education/Training Program | DX: F19.11 Other psychoactive substance abuse, in remission (principal) ==

== ENCOUNTER → 2021-12-30 | Outpatient (CLI) | payer OTHER | LOC: M PLAIMG 15:17 | PROVIDERS: ATTEND Student in an Organized Health Care Education/Training Program | DX: M25.511 Pain in right shoulder (principal) ==

== ENCOUNTER 2022-10-13 17:23 | Inpatient (IN) | payer MEDICAID, OTHER ==
[~2022-10-13 17:23] MED LIST changes: -BENZ-52 PO; +BENZ1TAB5 PO
[2022-10-13] MEDS ORDERED: LORazepam 2 MG/ML 1ML VIAL IM STA (17:52)
[2022-10-13] MEDS ORDERED: diphenhydrAMINE 50MG/ML VIAL IM ONE (17:55)
[2022-10-13] MEDS ORDERED: HALOPERIDOL 5MG/ML 1ML VIAL IM ONE (17:55)
[2022-10-13 19:53] LABS: HEMATOCRIT 35.5 % (36.0-47.0); HEMOGLOBIN 11.1 g/dl (12.0-15.5); MEAN CORPUSCULAR HEMOGLOBIN 27.5 pg (27.0-33.0); MEAN CORPUSCULAR HGB CONC 31.3 g/dl (32.0-36.5); MEAN CORPUSCULAR VOLUME 88.1 fl (80.0-96.0); PLATELET COUNT, AUTOMATED 271 10^3/uL (150-450); RED BLOOD COUNT 4.03 10^6/uL (4.00-5.40); WHITE BLOOD COUNT 9.1 10^3/uL (4.0-10.0)
[2022-10-13 20:23] LABS: ETHYL ALCOHOL (ETHANOL) < 0.003 % (0.000-0.010)
[2022-10-13 20:25] LABS: SALICYLATE LEVEL < 3.0 MG/DL (<30)
[2022-10-13 20:26] LABS: ACETAMINOPHEN LEVEL < 2.0 UG/ML (10.0-20.0); ALBUMIN 3.9 G/DL (3.2-5.2); ALKALINE PHOSPHATASE 48 U/L (46-116); ALT/SGPT 13 U/L (7.0-40); AST/SGOT 26 U/L (<34); BILIRUBIN,DIRECT 0.2 MG/DL (<0.4); BILIRUBIN,TOTAL 0.4 MG/DL (0.3-1.2); BLOOD UREA NITROGEN 12 MG/DL (9-23); CALCIUM LEVEL 8.6 MG/DL (8.5-10.1); CARBON DIOXIDE LEVEL 21 MMOL/L (20-31); CHLORIDE LEVEL 109 MMOL/L (98-107); CREATININE FOR GFR 0.75 MG/DL (0.55-1.30); GLOMERULAR FILTRATION RATE > 60.0 (>60); GLUCOSE, FASTING 75 MG/DL (60-100); POTASSIUM SERUM 3.6 MMOL/L (3.5-5.1); SODIUM LEVEL 141 MMOL/L (136-145); TOTAL PROTEIN 6.5 G/DL (5.7-8.2)
[2022-10-13 20:27] LABS: THYROID STIMULATING HORMONE 2.309 uIU/ML (0.55-4.78)
[2022-10-13 22:38] LABS: AMPHETAMINES LEVEL URINE NEGATIVE (NEGATIVE); BARBITURATES URINE NEGATIVE (NEGATIVE); BENZODIAZEPINES URINE NEGATIVE (NEGATIVE); COCAINE METABOLITE URINE NEGATIVE (NEGATIVE); METHADONE URINE NEGATIVE (NEGATIVE); OPIATES URINE NEGATIVE (NEGATIVE); PHENCYCLIDINE URINE NEGATIVE (NEGATIVE)
[2022-10-13 22:41] LABS: CANNABINOIDS URINE POSITIVE (NEGATIVE)
[2022-10-14 08:26] LABS: HCG, SERUM QUALITATIVE NEGATIVE (NEGATIVE)
[2022-10-14] MEDS ORDERED: traZODone 50 MG TAB PO PRN (13:20)
[2022-10-14] MEDS ORDERED: ACETAMINOPHEN TAB 650MG DOSE (2X325MG) PO PRN (13:20)
[2022-10-14] MEDS ORDERED: MAALOX 30 ML SUSP *UDC PO PRN (13:20)
[2022-10-14] MEDS ORDERED: MOM 30ML SUSPENSION UDC PO PRN (13:20)
[2022-10-15 06:30] VITALS: BP 137/80
[2022-10-15] MEDS: ARIPiprazole 10 MG TAB PO SCH (09:00)
[2022-10-15] MEDS ORDERED: HALOPERIDOL 5MG/ML 1ML VIAL IM STA (09:20)
[2022-10-15] MEDS ORDERED: LORazepam 2 MG/ML 1ML VIAL IM STA (09:20)
[2022-10-15] MEDS ORDERED: diphenhydrAMINE 50MG/ML VIAL IM STA (09:20)
[2022-10-16] MEDS: ARIPiprazole 10 MG TAB PO SCH (07:51)
[2022-10-16] MEDS ORDERED: LORazepam 2 MG TAB PO ONE (07:55)
== END 2022-10-16 14:14 | disposition home or self-care (01) | DRG 753 ==
LOC: M ED 17:23 → M ED INP 10-14 13:16 → M PSY 10-14 14:19
PROVIDERS: ADMIT Student in an Organized Health Care Education/Training Program; ATTEND Psychiatry & Neurology Psychiatry
DX: F31.9 Bipolar disorder, unspecified (principal); Z78.1 Physical restraint status; Z91.119 Patient's noncompliance with dietary regimen due to unspecified reason; F17.210 Nicotine dependence, cigarettes, uncomplicated; F12.959 Cannabis use, unspecified with psychotic disorder, unspecified; F15.959 Other stimulant use, unspecified with stimulant-induced psychotic disorder, unspecified; F60.2 Antisocial personality disorder

== ENCOUNTER 2023-01-10 20:49 | Inpatient (IN) | payer MEDICAID, OTHER ==
[2023-01-10] MEDS ORDERED: HALOPERIDOL 5MG/ML 1ML VIAL IM ONE (21:15)
[2023-01-10] MEDS ORDERED: diphenhydrAMINE 50MG/ML VIAL IM ONE (21:15)
[2023-01-10] MEDS ORDERED: MIDAZOLAM INJ 2MG/2ML VIAL IM ONE (21:15)
[2023-01-10] MEDS ORDERED: HOME MED LIST COMPLETE! XX SCH (21:20)
[2023-01-11] MEDS: UNRESOLVED CLARIFICATION ENTRY XX SCH (00:01)
[2023-01-11 00:24] LABS: HEMATOCRIT 37.3 % (36.0-47.0); HEMOGLOBIN 12.1 g/dl (12.0-15.5); MEAN CORPUSCULAR HEMOGLOBIN 28.3 pg (27.0-33.0); MEAN CORPUSCULAR HGB CONC 32.4 g/dl (32.0-36.5); MEAN CORPUSCULAR VOLUME 87.4 fl (80.0-96.0); PLATELET COUNT, AUTOMATED 263 10^3/uL (150-450); RED BLOOD COUNT 4.27 10^6/uL (4.00-5.40); WHITE BLOOD COUNT 6.3 10^3/uL (4.0-10.0)
[2023-01-11 00:52] LABS: ETHYL ALCOHOL (ETHANOL) < 0.003 % (0.000-0.010)
[2023-01-11 00:53] LABS: ACETAMINOPHEN LEVEL < 2.0 UG/ML (10.0-20.0); SALICYLATE LEVEL < 3.0 MG/DL (<30)
[2023-01-11 00:54] LABS: ALBUMIN 3.8 G/DL (3.2-5.2); ALKALINE PHOSPHATASE 59 U/L (46-116); ALT/SGPT 22 U/L (7.0-40); AST/SGOT 29 U/L (<34); BILIRUBIN,DIRECT 0.1 MG/DL (<0.4); BILIRUBIN,TOTAL 0.3 MG/DL (0.3-1.2); BLOOD UREA NITROGEN 11 MG/DL (9-23); CALCIUM LEVEL 8.8 MG/DL (8.5-10.1); CARBON DIOXIDE LEVEL 28 MMOL/L (20-31); CHLORIDE LEVEL 106 MMOL/L (98-107); CREATININE FOR GFR 0.77 MG/DL (0.55-1.30); GLOMERULAR FILTRATION RATE > 60.0 (>60); GLUCOSE, FASTING 82 MG/DL (60-100); POTASSIUM SERUM 3.7 MMOL/L (3.5-5.1); SODIUM LEVEL 139 MMOL/L (136-145); TOTAL PROTEIN 6.4 G/DL (5.7-8.2)
[2023-01-11 00:55] LABS: THYROID STIMULATING HORMONE 0.444 uIU/ML (0.55-4.78)
[2023-01-11 01:12] LABS: HCG, SERUM QUALITATIVE NEGATIVE (NEGATIVE)
[2023-01-11] MEDS ORDERED: traZODone 50 MG TAB PO PRN (15:15)
[2023-01-11] MEDS ORDERED: IBUPROFEN 400MG TAB PO PRN (15:15)
[2023-01-11] MEDS ORDERED: MAALOX 30 ML SUSP *UDC PO PRN (15:15)
[2023-01-11] MEDS ORDERED: diphenhydrAMINE 25MG CAP PO PRN (15:15)
[2023-01-11] MEDS ORDERED: ACETAMINOPHEN TAB 650MG DOSE (2X325MG) PO PRN (15:15)
[2023-01-11] MEDS ORDERED: MOM 30ML SUSPENSION UDC PO PRN (15:15)
[2023-01-12] MEDS: UNRESOLVED CLARIFICATION ENTRY XX SCH (00:01)
[2023-01-12] MEDS: OLANZapine 10 MG TAB PO SCH (09:00)
[2023-01-12] MEDS ORDERED: OLANZapine 5 MG TAB PO SCH (09:00)
[2023-01-12] MEDS ORDERED: chlorproMAZINE INJ 50MG/2ML AMP IM STA ×2 (10:03→12:04)
[2023-01-13] MEDS: OLANZapine 10 MG TAB PO SCH (09:00)
[2023-01-13] MEDS ORDERED: chlorproMAZINE INJ 50MG/2ML AMP IM STA (10:54)
[2023-01-13] MEDS ORDERED: HALOPERIDOL 5MG/ML 1ML VIAL IM STA (11:10)
[2023-01-13 12:35] VITALS: BP 153/87
[2023-01-13 18:12] VITALS: BP 136/97
[2023-01-14] MEDS: OLANZapine 10 MG TAB PO SCH ×3 (09:00→17:20)
[2023-01-14 18:37] VITALS: BP 138/86
[2023-01-15] MEDS: OLANZapine 10 MG TAB PO SCH (07:38)
[2023-01-15] MEDS ORDERED: OLAN1TAB20 PO (10:11)
== END 2023-01-15 12:18 | disposition home or self-care (01) | DRG 753 ==
LOC: M ED 20:49 → M PSY 01-11 21:18
PROVIDERS: ADMIT Psychiatry & Neurology Child & Adolescent Psychiatry; ATTEND Psychiatry & Neurology Child & Adolescent Psychiatry
DX: F31.9 Bipolar disorder, unspecified (principal); F15.959 Other stimulant use, unspecified with stimulant-induced psychotic disorder, unspecified; Z78.1 Physical restraint status; Z20.822 Contact with and (suspected) exposure to COVID-19

== ENCOUNTER → 2023-10-14 | Outpatient (CLI) | payer OTHER ==
[~2023-10-14] MED LIST changes: +OLAN1TAB20 PO; +RISP-105 PO; -RISP-8 PO
[2023-10-14 18:13] LABS: HEMATOCRIT 40.9 % (36.0-47.0); HEMOGLOBIN 13.2 g/dl (12.0-15.5); MEAN CORPUSCULAR HEMOGLOBIN 27.7 pg (27.0-33.0); MEAN CORPUSCULAR HGB CONC 32.3 g/dl (32.0-36.5); MEAN CORPUSCULAR VOLUME 85.9 fl (80.0-96.0); PLATELET COUNT, AUTOMATED 331 10^3/uL (150-450); RED BLOOD COUNT 4.76 10^6/uL (4.00-5.40); WHITE BLOOD COUNT 10.1 10^3/uL (4.0-10.0)
[2023-10-14 18:59] LABS: HIV 1&2 SCREEN NEGATIVE (NEGATIVE)
[2023-10-14 19:07] LABS: HEPATITIS C VIRUS ABY INDEX < 0.02 INDEX (<0.8)
[2023-10-14 20:11] LABS: GC DNA AMPLIFICATION NEGATIVE (NEGATIVE)
== END ==
LOC: M PLALAB 15:33
PROVIDERS: ATTEND Advanced Practice Midwife
DX: O09.529 Supervision of elderly multigravida, unspecified trimester (principal); Z3A.00 Weeks of gestation of pregnancy not specified